=== PATIENT | male | born 1955 | race Caucasian/White ===

== ENCOUNTER 2016-08-26 13:33 | Inpatient (IN) | payer BC, OTHER ==
[~2016-08-26] VITALS: Ht 182.9 cm; Wt 132.4 kg
[~2016-08-26 13:33] MED LIST: HYDR-5688 PO
[2016-08-26 15:04] LABS: BASO % 0.1 %; BASO ABS # 0.02 K/uL (0-0.2); COMPLETE YES; EOS % 0.4 %; HEMATOCRIT 51.5 % (42-52); IG% 0.3 %; LYMPH % 13.3 %; LYMPH ABS # 1.92 K/uL (1.2-3.4); MEAN CELL VOLUME 90.7 fL (80-100); MEAN CORPUSCULAR HEMOGLOBIN 31.5 pg (25-34); MEAN CORPUSCULAR HGB CONC 34.8 g/dl (32-36); MONO % 4.6 %; NEUT % 81.3 %; PLATELET COUNT 267 K/uL (130-400); RED BLOOD COUNT 5.68 M/uL (4.7-6.1); WHITE BLOOD COUNT 14.45 K/uL (4.8-10.8)
[2016-08-26] MEDS ORDERED: HYDR-5688 PO (15:07)
[2016-08-26] MEDS ORDERED: MELO15TA4 PO (15:07)
[2016-08-26] MEDS ORDERED: HYDR25TA5 PO (15:07)
[2016-08-26] MEDS ORDERED: BISA-16 PO (15:08)
[2016-08-26] MEDS ORDERED: SODIUM CHLORIDE 0.9% 1000ML 2,000 ML IV ONE (15:15)
[2016-08-26 15:22] LABS: BUN/CREATININE RATIO 19.6 (10-20); CALCIUM 9.7 mg/dl (8.5-10.1); CREATININE 1.3 mg/dl (0.60-1.40)
[2016-08-26] MEDS: ONDANSETRON INJ 2 MG/ML 2 ML VIAL IV PRN ×2 (15:23→20:02)
[2016-08-26] MEDS: MoRPHine SULFATE 10 MG/ML CARP/VIAL IV PRN ×2 (15:23→17:33)
[2016-08-26] MEDS ORDERED: OPTIRAY 320 IV PRN (15:30)
--- NOTE | 2016-08-26 15:36 | EMERGENCY ROOM VISIT NOTE ---
History Report prepared by Nova: Davonte Pérez Under the Supervision of: Dr. Ruben Lyles M.D. First contact with patient: 15:11 Chief Complaint: ABDOMINAL PAIN Stated Complaint: ABD. PAIN Nursing Triage Summary: pt c/o left sided abd pain since getting lux[place]ish food 2 days ago has been taking previous pain meds and ran out History of Present Illness The patient is a 60 year old male who presents to the Emergency Room with complaints of constant severe left sided abdominal pain for the past two days. The patient states that he usually eats healthy, and he ate shrimp and broccoli the other night. He states he then went to bed, and when he woke up it hurt. He additionally states that he hasn't had a bowel movement in 2 days, and he has urinated very little. Additionally, the patient states that he was vomiting. He states that he is taking hydrocodone for his knee, and that only helps the abdominal pain for a couple hours. He states that he has no history of diverticulitis or diverticulosis, and he has never had pain like this before. Additionally he states that he fell two weeks ago, and afterwards he had hematochezia for a few days which has resolved. Source of History: patient Onset: two days ago Position: abdomen (left) Symptom Intensity: severe Timing: constant Associated Symptoms: + vomiting Review of Systems All systems have been listed, reviewed, and are negative other than those previously mentioned. Please see Additional Medical History Sheet. Past Medical & Surgical Medical Problems: (1) Chronic Hepatitis C W/O Hepatic Coma (2) Int Hemorrhoid W/O Compl Surgical Problems: (1) History of arthroscopic knee surgery Family History FH: diabetes mellitus FH: hypertension Social History Smoking Status: Never Smoker Alcohol Use: none Marital Status: Occupation Status: employed Current/Historical Medications Scheduled Bisacodyl (Dulcolax), 2 TAB PO UD Hydrochlorothiazide (Hydrochlorothiazide), 1 TAB PO DAILY Meloxicam (Meloxicam), 1 TAB PO DAILY Scheduled PRN Hydrocodone/Acetaminophen 5MG/325MG ([place] 5MG/325MG), 1 TABLET PO Q6H PRN for Pain Allergies Coded Allergies: No Known Allergies (Unverified , 08/26/16) Physical Exam Vital Signs Date Time Temp Pulse Resp B/P (MAP) Pulse Ox O2 Delivery O2 Flow Rate FiO2 08/26/16 16:43 79 18 125/83 94 Room Air 08/26/16 15:01 88 20 128/88 94 Room Air 08/26/16 13:41 36.6 95 22 155/99 93 Room Air Physical Exam GENERAL: Patient awake, alert, oriented x 3. Patient follows commands. Patient does not appear toxic. Patient is adequately hydrated and well- nourished. SKIN: No erythema, pallor, cyanosis or rash HEENT: Normal head, pupils equal, reactive to light and accommodation. LUNGS: Clear to auscultation. No wheezes, no rales, no rhonchi. HEART: No murmurs. No gallops. No rubs ABDOMEN: Left upper quadrant tenderness. No masses, no rebound, no hepatomegaly or splenomegaly. EXTREMITIES: No signs of trauma or infection NEUROLOGIC: Cranial nerves II-XII within normal limits. No gross motor sensory function deficits. Medical Decision & Procedures ER Provider Diagnostic Interpretation: Radiology results as stated below per my review and radiologist interpretation: ABD/PELVIS IV AND ORAL CONT CT DOSE: 2108.90 mGy.cm HISTORY: Pain LLQ pain TECHNIQUE: Multiaxial CT images of the abdomen and pelvis were performed following the use of intravenous and oral contrast. COMPARISON STUDY: None. FINDINGS: Mild bibasilar dependent atelectasis. Liver spleen and pancreas are unremarkable. Prior cholecystectomy. The kidneys enhance uniformly. Bowel pattern shows several fluid-filled slightly distended loops of small bowel. This suggests partial small bowel obstruction distally. Obstructing mass or lesion is not appreciated. Colon shows no evidence for distention. There is no evidence for pneumatosis or free air. Bladder is midline. Osseous structures show moderate degenerative change. IMPRESSION: 1. Partial distal small bowel obstruction 2. Etiology of the obstructive changes is not identified. 3. No evidence for colonic distention 4. Prior cholecystectomy. The above report was generated using voice recognition software. It may contain grammatical, syntax or spelling errors. Electronically signed by: Juwan Greenfield M.D. 08/26/2016 5:59 PM Dictated Date/Time: 08/26/2016 5:52 PM Laboratory Results 08/26/16 14:40 Red Blood Count 5.68, Mean Corpuscular Volume 90.7, Mean Corpuscular Hemoglobin 31.5, Mean Corpuscular Hemoglobin Concent 34.8, Mean Platelet Volume 10.0, Neutrophils (%) (Auto) 81.3, Lymphocytes (%) (Auto) 13.3, Monocytes (%) (Auto) 4.6, Eosinophils (%) (Auto) 0.4, Basophils (%) (Auto) 0.1, Neutrophils # (Auto) 11.74, Lymphocytes # (Auto) 1.92, Monocytes # (Auto) 0.66, Eosinophils # (Auto) 0.06, Basophils # (Auto) 0.02 08/26/16 14:40 Test 08/26/16 14:40 White Blood Count 14.45 K/uL (4.8-10.8) Red Blood Count 5.68 M/uL (4.7-6.1) Hemoglobin 17.9 g/dL (14.0-18.0) Hematocrit 51.5 % (42-52) Mean Corpuscular Volume 90.7 fL (80-100) Mean Corpuscular Hemoglobin 31.5 pg (25-34) Mean Corpuscular Hemoglobin Concent 34.8 g/dl (32-36) Platelet Count 267 K/uL (130-400) Mean Platelet Volume 10.0 fL (7.4-10.4) Neutrophils (%) (Auto) 81.3 % Lymphocytes (%) (Auto) 13.3 % Monocytes (%) (Auto) 4.6 % Eosinophils (%) (Auto) 0.4 % Basophils (%) (Auto) 0.1 % Neutrophils # (Auto) 11.74 K/uL (1.4-6.5) Lymphocytes # (Auto) 1.92 K/uL (1.2-3.4) Monocytes # (Auto) 0.66 K/uL (0.11-0.59) Eosinophils # (Auto) 0.06 K/uL (0-0.5) Basophils # (Auto) 0.02 K/uL (0-0.2) RDW Standard Deviation 44.6 fL (36.4-46.3) RDW Coefficient of Variation 13.5 % (11.5-14.5) Immature Granulocyte % (Auto) 0.3 % Immature Granulocyte # (Auto) 0.05 K/uL (0.00-0.02) Anion Gap 9.0 mmol/L (3-11) Est Creatinine Clear Calc Drug Dose 82.9 ml/min Estimated GFR () 67.8 Estimated GFR (Non- 58.5 BUN/Creatinine Ratio 19.6 (10-20) Calcium Level 9.7 mg/dl (8.5-10.1) Total Bilirubin 1.5 mg/dl (0.2-1) Aspartate Amino Transf (AST/SGOT) 26 U/L (15-37) Alanine Aminotransferase (ALT/SGPT) 43 U/L (12-78) Alkaline Phosphatase 78 U/L (45-117) Total Protein 8.6 gm/dl (6.4-8.2) Albumin 4.3 gm/dl (3.4-5.0) Globulin 4.3 gm/dl (2.5-4.0) Albumin/Globulin Ratio 1.0 (0.9-2) Lipase 75 U/L (73-393) Laboratory results as stated above per my review. Medications Administered Medications (Trade) Dose Ordered Sig/Arnie Route Start Time Stop Time Status Last Admin Dose Admin Sodium Chloride 2,000 ml @ 1,000 mls/hr Q2H ONCE IV 08/26/16 15:15 08/26/16 17:14 DC 08/26/16 15:23 1,000 MLS/HR Morphine Sulfate (MoRPHine SULFATE INJ) 6 mg Q1H PRN IV 08/26/16 15:15 09/09/16 15:14 08/26/16 17:33 6 MG Ondansetron HCl (Zofran Inj) 4 mg Q1HWA PRN IV 08/26/16 15:15 09/25/16 15:14 08/26/16 15:23 4 MG ED Course 1511: Past medical records reviewed. The patient was evaluated in room B10. A complete history and physical examination was performed. 1515: Zofran Inj 4mg IV, Morphine Sulfate Inj 6mg IV, Sodium Chloride 2000 ml @ 1000 mls/hr IV 180: I reevaluated the patient, and he is agreeable to the treatment plan 181: I discussed the patient's case with Dr. Costello. He is going to evaluate the patient for further treatment. Medical Decision Nurses notes reviewed. Medical history sheet reviewed. Differential diagnosis includes but is not limited to: bowel obstruction, diverticulitis, gastroenteritis, Crohn's, and ulcerative colitis. Blood pressure Screening: Patient was found to have normal blood pressure on screening and does not require follow up. Medication Reconciliation: I attest that I have personally reviewed the patient' s current medication list. The patient is here with abdominal pain and no bowel movement for the past 2 days. The patient's exam reveals some distention and vague generalized tenderness. White count is elevated. CT reveals a partial small bowel obstruction. The patient has required IV pain medication. In light of the above I believe the patient will require further evaluation in the hospital. I discussed care with the hospitalist. Consults Time Called: 1803 Consulting Physician: Dr. Costello Returned Call: 1811 I discussed the patient's case with Dr. Costello. He is going to evaluate the patient for further treatment. Impression Primary Impression: Small bowel obstruction Scribe Attestation The scribe's documentation has been prepared under my direction and personally reviewed by me in its entirety. I confirm that the note above accurately reflects all work, treatment, procedures, and medical decision making performed by me. Departure Information Dispostion Being Evaluated By Hospitalist Referrals [facility] (PCP) Patient Instructions My [facility]
--- NOTE | 2016-08-26 18:01 | DIAGNOSTIC IMAGING REPORT ---
ABD/PELVIS IV AND ORAL CONT CT DOSE: 2108.90 mGy.cm HISTORY: Pain LLQ pain TECHNIQUE: Multiaxial CT images of the abdomen and pelvis were performed following the use of intravenous and oral contrast. COMPARISON STUDY: None. FINDINGS: Mild bibasilar dependent atelectasis. Liver spleen and pancreas are unremarkable. Prior cholecystectomy. The kidneys enhance uniformly. Bowel pattern shows several fluid-filled slightly distended loops of small bowel. This suggests partial small bowel obstruction distally. Obstructing mass or lesion is not appreciated. Colon shows no evidence for distention. There is no evidence for pneumatosis or free air. Bladder is midline. Osseous structures show moderate degenerative change. IMPRESSION: 1. Partial distal small bowel obstruction 2. Etiology of the obstructive changes is not identified. 3. No evidence for colonic distention 4. Prior cholecystectomy. The above report was generated using voice recognition software. It may contain grammatical, syntax or spelling errors. Electronically signed by: Juwan Greenfield M.D. 08/26/2016 5:59 PM Dictated Date/Time: 08/26/2016 5:52 PM
[2016-08-26] MEDS ORDERED: SODIUM CHLORIDE 0.9% 1000ML 1,000 ML IV STA (18:08)
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
[2016-08-26] MEDS ORDERED: ACETAMINOPHEN 325 MG TAB PO PRN (18:30)
[2016-08-26 19:43] VITALS: BP 133/70; PULSE 71; TEMP 36.6; O2SAT 93; Ht 182.9 cm; Wt 132.4 kg
[2016-08-26 20:15] VITALS: BP 149/98; PULSE 74; TEMP 36.5; O2SAT 92
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
[2016-08-26] MEDS: NSS + 20MEQ KCL 1000ML 1,000 ML IV SCH (21:52)
[2016-08-26] MEDS: MoRPHine SULFATE 2 MG/ML CARP IV PRN (21:53)
[2016-08-26] MEDS: CIPROFLOXACIN / D5W 400 MG in PREMIXED IN D5W 200 ML IV SCH (22:30)
[2016-08-26 22:50] VITALS: BP 159/101; PULSE 70; TEMP 36.3; O2SAT 93
[2016-08-26] MEDS: METRONIDAZOLE / NSS 500 MG in PREMIXED NSS 100 ML IV SCH (23:23)
[2016-08-27] MEDS: MoRPHine SULFATE 2 MG/ML CARP IV PRN ×4 (02:33→17:16)
[2016-08-27] MEDS: ONDANSETRON INJ 2 MG/ML 2 ML VIAL IV PRN (05:34)
[2016-08-27 07:11] VITALS: BP 146/85; PULSE 77; TEMP 37; O2SAT 92
[2016-08-27] MEDS: METRONIDAZOLE / NSS 500 MG in PREMIXED NSS 100 ML IV SCH ×2 (07:28→16:42)
[2016-08-27] MEDS: NSS + 20MEQ KCL 1000ML 1,000 ML IV SCH ×2 (07:28→16:42)
[2016-08-27 07:30] VITALS: O2SAT 92
[2016-08-27 07:30] LABS: BASO % 0.1 %; BASO ABS # 0.01 K/uL (0-0.2); COMPLETE YES; EOS % 0.7 %; HEMATOCRIT 48.2 % (42-52); IG% 0.3 %; LYMPH % 6.7 %; LYMPH ABS # 0.72 K/uL (1.2-3.4); MEAN CORPUSCULAR HEMOGLOBIN 31.5 pg (25-34); MEAN CORPUSCULAR HGB CONC 34.2 g/dl (32-36); MONO % 6.6 %; NEUT % 85.6 %; PLATELET COUNT 218 K/uL (130-400); RED BLOOD COUNT 5.24 M/uL (4.7-6.1); WHITE BLOOD COUNT 10.76 K/uL (4.8-10.8)
[2016-08-27 07:51] LABS: URINE APPEARANCE CLEAR (CLEAR); URINE BILIRUBIN NEG (NEG); URINE COLOR DK YELLOW; URINE NITRITE NEG (NEG); URINE SPECIFIC GRAVITY > 1.045 (1.000-1.030); UROBILINOGEN NEG (NEG); ZZUR CULT IF INDIC CLEAN CATCH NO
[2016-08-27 07:52] LABS: MANUAL MICROSCOPIC REQUIRED? NO; REVIEW REQ? NO
--- NOTE | 2016-08-27 08:05 | Surgery Progress Note ---
Surgery Progress Note Date of Service Aug 27, 2016. Subjective pt is slightly better, but not pass BM and gas yet, pt had NG tube-1145ml, Objective Vital Signs: Date Time Temp Pulse Resp B/P (MAP) Pulse Ox O2 Delivery O2 Flow Rate FiO2 08/27/16 07:11 37.0 77 18 146/85 (105) 92 Room Air 08/26/16 23:30 Room Air 08/26/16 22:50 36.3 70 18 159/101 (120) 93 Room Air 08/26/16 20:15 Room Air 08/26/16 20:15 36.5 74 20 149/98 (115) 92 Room Air 08/26/16 19:43 36.6 71 18 133/70 93 Room Air 08/26/16 19:38 71 18 133/70 93 Room Air 08/26/16 18:20 75 20 132/83 94 Room Air 08/26/16 16:43 79 18 125/83 94 Room Air 08/26/16 15:23 75 20 132/83 94 Room Air 08/26/16 15:01 88 20 128/88 94 Room Air 08/26/16 13:41 36.6 95 22 155/99 93 Room Air General Appearance: WD/WN, no apparent distress Head: normocephalic Neck: supple, no JVD Respiratory/Chest: chest non-tender, lungs clear Cardiovascular: regular rate, rhythm, no edema, no JVD Abdomen: non distended, soft, no organomegaly, + tenderness (tenderness on left abdomen, no rebound pain, BS +) Extremities: normal range of motion, non-tender, normal inspection Laboratory Results: Results Past 24 Hours Test 08/26/16 14:40 08/27/16 05:30 08/27/16 07:12 08/27/16 07:17 Range/Units White Blood Count 14.45 10.76 4.8-10.8 K/uL Red Blood Count 5.68 5.24 4.7-6.1 M/uL Hemoglobin 17.9 16.5 14.0-18.0 g/dL Hematocrit 51.5 48.2 42-52 % Mean Corpuscular Volume 90.7 92.0 80-100 fL Mean Corpuscular Hemoglobin 31.5 31.5 25-34 pg Mean Corpuscular Hemoglobin Concent 34.8 34.2 32-36 g/dl Platelet Count 267 218 130-400 K/uL Mean Platelet Volume 10.0 10.0 7.4-10.4 fL Neutrophils (%) (Auto) 81.3 85.6 % Lymphocytes (%) (Auto) 13.3 6.7 % Monocytes (%) (Auto) 4.6 6.6 % Eosinophils (%) (Auto) 0.4 0.7 % Basophils (%) (Auto) 0.1 0.1 % Neutrophils # (Auto) 11.74 9.21 1.4-6.5 K/uL Lymphocytes # (Auto) 1.92 0.72 1.2-3.4 K/uL Monocytes # (Auto) 0.66 0.71 0.11-0.59 K/uL Eosinophils # (Auto) 0.06 0.08 0-0.5 K/uL Basophils # (Auto) 0.02 0.01 0-0.2 K/uL RDW Standard Deviation 44.6 46.0 36.4-46.3 fL RDW Coefficient of Variation 13.5 13.6 11.5-14.5 % Immature Granulocyte % (Auto) 0.3 0.3 % Immature Granulocyte # (Auto) 0.05 0.03 0.00-0.02 K/uL Sodium Level 140 136-145 mmol/L Potassium Level 4.0 3.5-5.1 mmol/L Chloride Level 104 98-107 mmol/L Carbon Dioxide Level 27 21-32 mmol/L Anion Gap 9.0 3-11 mmol/L Blood Urea Nitrogen 26 7-18 mg/dl Creatinine 1.30 0.60-1.40 mg/dl Est Creatinine Clear Calc Drug Dose 82.9 ml/min Estimated GFR () 67.8 Estimated GFR (Non- 58.5 BUN/Creatinine Ratio 19.6 10-20 Random Glucose 138 70-99 mg/dl Calcium Level 9.7 8.5-10.1 mg/dl Total Bilirubin 1.5 0.2-1 mg/dl Aspartate Amino Transf (AST/SGOT) 26 15-37 U/L Alanine Aminotransferase (ALT/SGPT) 43 12-78 U/L Alkaline Phosphatase 78 45-117 U/L Total Protein 8.6 6.4-8.2 gm/dl Albumin 4.3 3.4-5.0 gm/dl Globulin 4.3 2.5-4.0 gm/dl Albumin/Globulin Ratio 1.0 0.9-2 Lipase 75 73-393 U/L Urine Color DK YELLOW Urine Appearance CLEAR CLEAR Urine pH 5.0 4.5-7.5 Urine Specific [place] > 1.045 1.000-1.030 Urine Protein TRACE NEG Urine Glucose (UA) NEG NEG Urine Ketones NEG NEG Urine Occult Blood NEG NEG Urine Nitrite NEG NEG Urine Bilirubin NEG NEG Urine Urobilinogen NEG NEG Urine Leukocyte Esterase NEG NEG Urine WBC (Auto) 1-5 0-5 /hpf Urine RBC (Auto) 0-4 0-4 /hpf Urine Hyaline Casts (Auto) 1-5 0-5 /lpf Urine Epithelial Cells (Auto) 5-10 0-5 /lpf Urine Bacteria (Auto) NEG NEG Assessment & Plan F/U SBO pt is doing slightly better, but not pass BM or gas yet Small Bowel series study to R/O tumor will F/U,
[2016-08-27 08:10] LABS: CALCIUM 8.5 mg/dl (8.5-10.1); CREATININE 1.1 mg/dl (0.60-1.40); POTASSIUM 4.1 mmol/L (3.5-5.1)
[2016-08-27] MEDS: CIPROFLOXACIN / D5W 400 MG in PREMIXED IN D5W 200 ML IV SCH ×3 (09:59→20:15)
--- NOTE | 2016-08-27 13:45 | Progress Note ---
Internal Med Progress Note Date of Service: Aug 27, 2016. Provider Documentation: SUBJECTIVE: Seen and examined at bedside. States still has some left sided abdominal discomfort. Nausea and pain under control No BM yet Family at bedside. Denies chest pain, SOB, fever, chills OBJECTIVE: Vital Signs-as noted below General Appearance: WD/WN, no apparent distress Head: normocephalic, atraumatic Eyes: normal inspection, PERRL, EOMI, sclerae normal ENT: normal ENT inspection, hearing grossly normal Neck: supple, trachea midline Respiratory/Chest: chest non-tender, lungs clear, normal breath sounds, no respiratory distress, no accessory muscle use Cardiovascular: regular rate, rhythm, no murmur, + pertinent finding (Trace edema) Abdomen/GI: soft, + distended, + pertinent finding (Decreased bowel sounds, Tender in LUQ and LLQ) Back: normal inspection Extremities/Musculoskelatal: normal inspection, + pertinent finding (Trace edema) 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 ASSESSMENT & PLAN: Partial SBO: H/O Cholecystectomy CT abd: suggestive of partial SBO NPO for now continue IV fluids Minimize pain meds: diminished Bowel sounds on exam Appreciate Surgery input Continue NG tube Zofran for PRN nausea small bowel series study per surgery Leukocytosis: Likely reactive Resolved Continue Cipro and flagyl empirically per surgery recommendations Monitor HTN: Stable Hold HCTZ for now Monitor Chronic Hepatitis C H/O Hemorrhoids and hematochezia 2 weeks ago Follows with GI No acute issues Follow up as outpatient H/O Osteoarthritis: Patient plans to defer surgery even if needed Stable DVT Px: SCDs Code Status: Full Code Disposition: Monitor for now Vital Signs: Date Time Temp Pulse Resp B/P (MAP) Pulse Ox O2 Delivery O2 Flow Rate FiO2 08/27/16 07:30 92 Room Air 08/27/16 07:11 37.0 77 18 146/85 (105) 92 Room Air 08/26/16 23:30 Room Air 08/26/16 22:50 36.3 70 18 159/101 (120) 93 Room Air 08/26/16 20:15 Room Air 08/26/16 20:15 36.5 74 20 149/98 (115) 92 Room Air 08/26/16 19:43 36.6 71 18 133/70 93 Room Air 08/26/16 19:38 71 18 133/70 93 Room Air 08/26/16 18:20 75 20 132/83 94 Room Air 08/26/16 16:43 79 18 125/83 94 Room Air 08/26/16 15:23 75 20 132/83 94 Room Air 08/26/16 15:01 88 20 128/88 94 Room Air 08/26/16 13:41 36.6 95 22 155/99 93 Room Air Lab Results: Results Past 24 Hours Test 08/26/16 14:40 08/27/16 05:30 08/27/16 07:12 08/27/16 07:17 Range/Units White Blood Count 14.45 10.76 4.8-10.8 K/uL Red Blood Count 5.68 5.24 4.7-6.1 M/uL Hemoglobin 17.9 16.5 14.0-18.0 g/dL Hematocrit 51.5 48.2 42-52 % Mean Corpuscular Volume 90.7 92.0 80-100 fL Mean Corpuscular Hemoglobin 31.5 31.5 25-34 pg Mean Corpuscular Hemoglobin Concent 34.8 34.2 32-36 g/dl Platelet Count 267 218 130-400 K/uL Mean Platelet Volume 10.0 10.0 7.4-10.4 fL Neutrophils (%) (Auto) 81.3 85.6 % Lymphocytes (%) (Auto) 13.3 6.7 % Monocytes (%) (Auto) 4.6 6.6 % Eosinophils (%) (Auto) 0.4 0.7 % Basophils (%) (Auto) 0.1 0.1 % Neutrophils # (Auto) 11.74 9.21 1.4-6.5 K/uL Lymphocytes # (Auto) 1.92 0.72 1.2-3.4 K/uL Monocytes # (Auto) 0.66 0.71 0.11-0.59 K/uL Eosinophils # (Auto) 0.06 0.08 0-0.5 K/uL Basophils # (Auto) 0.02 0.01 0-0.2 K/uL RDW Standard Deviation 44.6 46.0 36.4-46.3 fL RDW Coefficient of Variation 13.5 13.6 11.5-14.5 % Immature Granulocyte % (Auto) 0.3 0.3 % Immature Granulocyte # (Auto) 0.05 0.03 0.00-0.02 K/uL Sodium Level 140 140 136-145 mmol/L Potassium Level 4.0 4.1 3.5-5.1 mmol/L Chloride Level 104 107 98-107 mmol/L Carbon Dioxide Level 27 28 21-32 mmol/L Anion Gap 9.0 5.0 3-11 mmol/L Blood Urea Nitrogen 26 23 7-18 mg/dl Creatinine 1.30 1.10 0.60-1.40 mg/dl Est Creatinine Clear Calc Drug Dose 82.9 98.0 ml/min Estimated GFR () 67.8 82.9 Estimated GFR (Non- 58.5 71.6 BUN/Creatinine Ratio 19.6 21.0 10-20 Random Glucose 138 120 70-99 mg/dl Calcium Level 9.7 8.5 8.5-10.1 mg/dl Total Bilirubin 1.5 0.2-1 mg/dl Aspartate Amino Transf (AST/SGOT) 26 15-37 U/L Alanine Aminotransferase (ALT/SGPT) 43 12-78 U/L Alkaline Phosphatase 78 45-117 U/L Total Protein 8.6 6.4-8.2 gm/dl Albumin 4.3 3.4-5.0 gm/dl Globulin 4.3 2.5-4.0 gm/dl Albumin/Globulin Ratio 1.0 0.9-2 Lipase 75 73-393 U/L Urine Color DK YELLOW Urine Appearance CLEAR CLEAR Urine pH 5.0 4.5-7.5 Urine Specific [place] > 1.045 1.000-1.030 Urine Protein TRACE NEG Urine Glucose (UA) NEG NEG Urine Ketones NEG NEG Urine Occult Blood NEG NEG Urine Nitrite NEG NEG Urine Bilirubin NEG NEG Urine Urobilinogen NEG NEG Urine Leukocyte Esterase NEG NEG Urine WBC (Auto) 1-5 0-5 /hpf Urine RBC (Auto) 0-4 0-4 /hpf Urine Hyaline Casts (Auto) 1-5 0-5 /lpf Urine Epithelial Cells (Auto) 5-10 0-5 /lpf Urine Bacteria (Auto) NEG NEG
[2016-08-27 15:47] VITALS: BP 126/80; PULSE 80; TEMP 36.6; O2SAT 93
[2016-08-27 23:22] VITALS: BP 133/89; PULSE 91; TEMP 36.3; O2SAT 90
[2016-08-28] MEDS: METRONIDAZOLE / NSS 500 MG in PREMIXED NSS 100 ML IV SCH ×3 (00:17→15:35)
[2016-08-28] MEDS: MoRPHine SULFATE 2 MG/ML CARP IV PRN ×2 (00:24→07:59)
[2016-08-28] MEDS: NSS + 20MEQ KCL 1000ML 1,000 ML IV SCH (02:57)
[2016-08-28 06:41] LABS: BASO % 0.2 %; BASO ABS # 0.02 K/uL (0-0.2); COMPLETE YES; EOS % 2.7 %; HEMATOCRIT 49.5 % (42-52); IG% 0.2 %; LYMPH % 26.5 %; LYMPH ABS # 2.72 K/uL (1.2-3.4); MEAN CELL VOLUME 93.8 fL (80-100); MEAN CORPUSCULAR HEMOGLOBIN 31.1 pg (25-34); MEAN CORPUSCULAR HGB CONC 33.1 g/dl (32-36); MEAN PLATELET VOLUME 10.1 fL (7.4-10.4); MONO % 5.5 %; NEUT % 64.9 %; PLATELET COUNT 242 K/uL (130-400); RED BLOOD COUNT 5.28 M/uL (4.7-6.1); WHITE BLOOD COUNT 10.28 K/uL (4.8-10.8)
[2016-08-28 07:18] LABS: BUN/CREATININE RATIO 18.4 (10-20); CALCIUM 8.4 mg/dl (8.5-10.1); CREATININE 1.5 mg/dl (0.60-1.40); POTASSIUM 3.6 mmol/L (3.5-5.1)
[2016-08-28 07:26] VITALS: BP 134/85; PULSE 77; TEMP 36.4; O2SAT 93
[2016-08-28 07:30] VITALS: O2SAT 93
[2016-08-28] MEDS: D5NSS + 20MEQ KCL 1,000 ML IV SCH ×2 (08:34→16:25)
--- NOTE | 2016-08-28 10:21 | Surgery Progress Note ---
Surgery Progress Note Date of Service Aug 28, 2016. Subjective + feeling well pt is doing better, passed some gas, no BM yet, pt has less abdominal pain, no nausea, no vomiting, some bloody color on NG tube, Objective Vital Signs: Date Time Temp Pulse Resp B/P (MAP) Pulse Ox O2 Delivery O2 Flow Rate FiO2 08/28/16 07:30 93 Room Air 08/28/16 07:26 36.4 77 18 134/85 (101) 93 Room Air 08/27/16 23:55 Room Air 08/27/16 23:22 36.3 91 16 133/89 (104) 90 08/27/16 16:40 Room Air 08/27/16 15:47 36.6 80 18 126/80 (95) 93 Room Air General Appearance: WD/WN Head: normocephalic Neck: supple, no JVD Respiratory/Chest: chest non-tender, lungs clear Cardiovascular: regular rate, rhythm, no edema, no gallop, no JVD Abdomen: normal bowel sounds, non tender, non distended, soft Extremities: normal range of motion, non-tender, normal inspection Laboratory Results: Results Past 24 Hours Test 08/28/16 06:12 Range/Units White Blood Count 10.28 4.8-10.8 K/uL Red Blood Count 5.28 4.7-6.1 M/uL Hemoglobin 16.4 14.0-18.0 g/dL Hematocrit 49.5 42-52 % Mean Corpuscular Volume 93.8 80-100 fL Mean Corpuscular Hemoglobin 31.1 25-34 pg Mean Corpuscular Hemoglobin Concent 33.1 32-36 g/dl Platelet Count 242 130-400 K/uL Mean Platelet Volume 10.1 7.4-10.4 fL Neutrophils (%) (Auto) 64.9 % Lymphocytes (%) (Auto) 26.5 % Monocytes (%) (Auto) 5.5 % Eosinophils (%) (Auto) 2.7 % Basophils (%) (Auto) 0.2 % Neutrophils # (Auto) 6.67 1.4-6.5 K/uL Lymphocytes # (Auto) 2.72 1.2-3.4 K/uL Monocytes # (Auto) 0.57 0.11-0.59 K/uL Eosinophils # (Auto) 0.28 0-0.5 K/uL Basophils # (Auto) 0.02 0-0.2 K/uL RDW Standard Deviation 46.8 36.4-46.3 fL RDW Coefficient of Variation 13.6 11.5-14.5 % Immature Granulocyte % (Auto) 0.2 % Immature Granulocyte # (Auto) 0.02 0.00-0.02 K/uL Sodium Level 142 136-145 mmol/L Potassium Level 3.6 3.5-5.1 mmol/L Chloride Level 104 98-107 mmol/L Carbon Dioxide Level 31 21-32 mmol/L Anion Gap 7.0 3-11 mmol/L Blood Urea Nitrogen 28 7-18 mg/dl Creatinine 1.50 0.60-1.40 mg/dl Est Creatinine Clear Calc Drug Dose 71.9 ml/min Estimated GFR () 57.0 Estimated GFR (Non- 49.2 BUN/Creatinine Ratio 18.4 10-20 Random Glucose 99 70-99 mg/dl Calcium Level 8.4 8.5-10.1 mg/dl Assessment & Plan F/U SBO pt is doing slightly better, but not pass BM or gas yet Small Bowel series study to R/O tumor will F/U, 08/28/2016 doing better, passed gas. continue treatment, will F/U, F/U SBO pt is doing slightly better, but not pass BM or gas yet Small Bowel series study to R/O tumor will F/U,
[2016-08-28] MEDS: CIPROFLOXACIN / D5W 400 MG in PREMIXED IN D5W 200 ML IV SCH (11:03)
--- NOTE | 2016-08-28 13:47 | Progress Note ---
Internal Med Progress Note Date of Service: Aug 28, 2016. Provider Documentation: SUBJECTIVE: Seen and examined at bedside. Minimal Abdominal discomfort. Passing gas No BM yet Denies chest pain, SOB, fever, chills OBJECTIVE: Vital Signs-as noted below General Appearance: WD/WN, no apparent distress Head: normocephalic, atraumatic Eyes: normal inspection, PERRL, EOMI, sclerae normal ENT: normal ENT inspection, hearing grossly normal Neck: supple, trachea midline Respiratory/Chest: chest non-tender, lungs clear, normal breath sounds, no respiratory distress, no accessory muscle use Cardiovascular: regular rate, rhythm, no murmur, + pertinent finding (Trace edema) Abdomen/GI: soft, + distended, + Decreased bowel sounds Back: normal inspection Extremities/Musculoskelatal: normal inspection, + pertinent finding (Trace edema) 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 ASSESSMENT & PLAN: Partial SBO: H/O Cholecystectomy CT abd: suggestive of partial SBO NPO for now continue IV fluids Minimize pain meds Continue NG tube Zofran for PRN nausea small bowel series study pending Surgery following Continue PPI LUCY: Likely prerenal Cr:1.5 today Continue IV fluids Monitor renal function Hold HCTZ Leukocytosis: Likely reactive Resolved Continue Cipro and flagyl empirically per surgery recommendations Monitor HTN: Stable Hold HCTZ for now Monitor Chronic Hepatitis C H/O Hemorrhoids and hematochezia 2 weeks ago Follows with GI No acute issues Follow up as outpatient H/O Osteoarthritis: Patient plans to defer surgery even if needed Stable DVT Px: SCDs Code Status: Full Code Disposition: Monitor for now Vital Signs: Date Time Temp Pulse Resp B/P (MAP) Pulse Ox O2 Delivery O2 Flow Rate FiO2 08/28/16 07:30 93 Room Air 08/28/16 07:26 36.4 77 18 134/85 (101) 93 Room Air 08/27/16 23:55 Room Air 08/27/16 23:22 36.3 91 16 133/89 (104) 90 08/27/16 16:40 Room Air 08/27/16 15:47 36.6 80 18 126/80 (95) 93 Room Air Lab Results: Results Past 24 Hours Test 08/28/16 06:12 Range/Units White Blood Count 10.28 4.8-10.8 K/uL Red Blood Count 5.28 4.7-6.1 M/uL Hemoglobin 16.4 14.0-18.0 g/dL Hematocrit 49.5 42-52 % Mean Corpuscular Volume 93.8 80-100 fL Mean Corpuscular Hemoglobin 31.1 25-34 pg Mean Corpuscular Hemoglobin Concent 33.1 32-36 g/dl Platelet Count 242 130-400 K/uL Mean Platelet Volume 10.1 7.4-10.4 fL Neutrophils (%) (Auto) 64.9 % Lymphocytes (%) (Auto) 26.5 % Monocytes (%) (Auto) 5.5 % Eosinophils (%) (Auto) 2.7 % Basophils (%) (Auto) 0.2 % Neutrophils # (Auto) 6.67 1.4-6.5 K/uL Lymphocytes # (Auto) 2.72 1.2-3.4 K/uL Monocytes # (Auto) 0.57 0.11-0.59 K/uL Eosinophils # (Auto) 0.28 0-0.5 K/uL Basophils # (Auto) 0.02 0-0.2 K/uL RDW Standard Deviation 46.8 36.4-46.3 fL RDW Coefficient of Variation 13.6 11.5-14.5 % Immature Granulocyte % (Auto) 0.2 % Immature Granulocyte # (Auto) 0.02 0.00-0.02 K/uL Sodium Level 142 136-145 mmol/L Potassium Level 3.6 3.5-5.1 mmol/L Chloride Level 104 98-107 mmol/L Carbon Dioxide Level 31 21-32 mmol/L Anion Gap 7.0 3-11 mmol/L Blood Urea Nitrogen 28 7-18 mg/dl Creatinine 1.50 0.60-1.40 mg/dl Est Creatinine Clear Calc Drug Dose 71.9 ml/min Estimated GFR () 57.0 Estimated GFR (Non- 49.2 BUN/Creatinine Ratio 18.4 10-20 Random Glucose 99 70-99 mg/dl Calcium Level 8.4 8.5-10.1 mg/dl
[2016-08-28 15:16] VITALS: BP 129/83; PULSE 79; TEMP 36.3; O2SAT 90
[2016-08-28] MEDS ORDERED: MoRPHine SULFATE 2 MG/ML CARP IV PRN (17:00)
[2016-08-28] MEDS ORDERED: NURSING DECISION MEDICATION ORDER SCH (17:00)
[2016-08-28] MEDS ORDERED: COUGH DROP (SUGAR FREE) LOZ 24 LOZ/1 BOX PO PRN (17:15)
[2016-08-28] MEDS: PANTOprazole INJ 40 MG in SYRINGE 0 ML IV SCH (20:33)
[2016-08-28 23:07] VITALS: BP 133/80; PULSE 73; TEMP 36.8; O2SAT 93
[2016-08-29] MEDS: METRONIDAZOLE / NSS 500 MG in PREMIXED NSS 100 ML IV SCH (00:23)
[2016-08-29] MEDS: D5NSS + 20MEQ KCL 1,000 ML IV SCH ×4 (00:24→23:49)
[2016-08-29 06:22] LABS: BUN/CREATININE RATIO 23.1 (10-20); CALCIUM 7.9 mg/dl (8.5-10.1); CREATININE 1.1 mg/dl (0.60-1.40)
[2016-08-29 07:46] VITALS: BP 136/83; PULSE 71; TEMP 36.8; O2SAT 93
[2016-08-29] MEDS: PANTOprazole INJ 40 MG in SYRINGE 0 ML IV SCH ×2 (11:59→21:02)
[2016-08-29] MEDS: ONDANSETRON INJ 2 MG/ML 2 ML VIAL IV PRN (12:01)
--- NOTE | 2016-08-29 14:01 | Progress Note ---
Internal Med Progress Note Date of Service: Aug 29, 2016. Provider Documentation: SUBJECTIVE: Seen and examined at bedside. Reports nausea. Abdominal pain is under control Passing gas, No BM yet Denies chest pain, SOB, fever, chills Had upper GI series today. OBJECTIVE: Vital Signs-as noted below General Appearance: WD/WN, no apparent distress Head: normocephalic, atraumatic Eyes: normal inspection, PERRL, EOMI, sclerae normal ENT: normal ENT inspection, hearing grossly normal Neck: supple, trachea midline Respiratory/Chest: chest non-tender, lungs clear, normal breath sounds, no respiratory distress, no accessory muscle use Cardiovascular: regular rate, rhythm, no murmur, + pertinent finding (Trace edema) Abdomen/GI: soft, + distended, + Decreased bowel sounds Back: normal inspection Extremities/Musculoskelatal: normal inspection, + pertinent finding (Trace edema) 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 ASSESSMENT & PLAN: Partial SBO: H/O Cholecystectomy Upper GI series: Possible Inflammatory bowel disease CT abd: suggestive of partial SBO NPO for now continue IV fluids Minimize pain meds Continue NG tube Zofran for PRN nausea small bowel series: as below Surgery following Continue PPI Will consult GI for possible endoscopy LUCY: Likely prerenal Resolved Cr:1.5 >>>1.1 Continue IV fluids Monitor renal function Hold HCTZ Leukocytosis: Likely reactive Resolved HTN: Stable Hold HCTZ for now Monitor Chronic Hepatitis C H/O Hemorrhoids and hematochezia 2 weeks ago Follows with GI No acute issues Follow up as outpatient H/O Osteoarthritis: Patient plans to defer surgery even if needed Stable DVT Px: SCDs Code Status: Full Code Disposition: Monitor for now PROCEDURES: Upper GI series: 1. Partial distal small bowel obstructive change. 2. Luminal narrowing and irregularity of the final 10 to 15 cm of the small bowel, combined with what is possibly a small fistulous tract extending from the distal ileum to the region of the cecum. 3. An inflammatory bowel process is felt to be most likely, with the possibility of Crohn's disease considered. 4. Endoscopic evaluation is suggested when able to confirm or exclude this possibility. Vital Signs: Date Time Temp Pulse Resp B/P (MAP) Pulse Ox O2 Delivery O2 Flow Rate FiO2 08/29/16 15:36 36.5 72 18 153/97 (115) 95 Room Air 08/29/16 07:53 Room Air 08/29/16 07:46 36.8 71 16 136/83 (100) 93 Room Air 08/29/16 03:32 Room Air 08/29/16 00:25 Room Air 08/28/16 23:07 36.8 73 16 133/80 (97) 93 Room Air Lab Results: Results Past 24 Hours Test 08/29/16 05:27 Range/Units Sodium Level 146 136-145 mmol/L Potassium Level 4.0 3.5-5.1 mmol/L Chloride Level 112 98-107 mmol/L Carbon Dioxide Level 31 21-32 mmol/L Anion Gap 3.0 3-11 mmol/L Blood Urea Nitrogen 25 7-18 mg/dl Creatinine 1.10 0.60-1.40 mg/dl Est Creatinine Clear Calc Drug Dose 98.0 ml/min Estimated GFR () 82.9 Estimated GFR (Non- 71.6 BUN/Creatinine Ratio 23.1 10-20 Random Glucose 114 70-99 mg/dl Calcium Level 7.9 8.5-10.1 mg/dl
[2016-08-29 15:36] VITALS: BP 153/97; PULSE 72; TEMP 36.5; O2SAT 95
--- NOTE | 2016-08-29 16:01 | DIAGNOSTIC IMAGING REPORT ---
GI W/AIR SMALL BOWEL ROUTINE CLINICAL HISTORY: /Pain. Nausea. COMPARISON STUDY: CT examination of 08/26/2016 FLUOROSCOPY TIME: 2.5 minutes. FINDINGS: Patient patient initiated swallowing function well. The esophagus is normal in course and caliber. Appearances of the stomach is within normal limits. The duodenal bulb fills well. The duodenal sweep opacifies appropriately. There is evidence for a distal partial small bowel obstructive change. The proximal to mid small bowel shows normal mucosal pattern although there is a moderate degree of small bowel distention. The distal small bowel including terminal ileum shows irregularity and edematous change of the wall. There is suggestion of a potential short segment fistulous tract extending from the cecum to a distal ileal loops best seen on the 5 hour 40 minute film. . The appearance is suggestive of an inflammatory bowel process such chest Crohn's disease. Endoscopic evaluation is suggested as follow-up. IMPRESSION: 1. Partial distal small bowel obstructive change. 2. Luminal narrowing and irregularity of the final 10 to 15 cm of the small bowel, combined with what is possibly a small fistulous tract extending from the distal ileum to the region of the cecum. 3. An inflammatory bowel process is felt to be most likely, with the possibility of Crohn's disease considered. 4. Endoscopic evaluation is suggested when able to confirm or exclude this possibility. The above report was generated using voice recognition software. It may contain grammatical, syntax or spelling errors. Electronically signed by: Juwan Greenfield M.D. 08/29/2016 4:00 PM Dictated Date/Time: 08/29/2016 3:52 PM
--- NOTE | 2016-08-29 16:26 | Surgery Progress Note ---
Surgery Progress Note Date of Service Aug 29, 2016. Subjective + feeling well pt is doing better, passed more gas, no BM yet, pt had small bowel study today, IMPRESSION: 1. Partial distal small bowel obstructive change. 2. Luminal narrowing and irregularity of the final 10 to 15 cm of the small bowel, combined with what is possibly a small fistulous tract extending from the distal ileum to the region of the cecum. 3. An inflammatory bowel process is felt to be most likely, with the possibility of Crohn's disease considered. 4. Endoscopic evaluation is suggested when able to confirm or exclude this possibility. Objective Vital Signs: Date Time Temp Pulse Resp B/P (MAP) Pulse Ox O2 Delivery O2 Flow Rate FiO2 08/29/16 15:36 36.5 72 18 153/97 (115) 95 Room Air 08/29/16 07:53 Room Air 08/29/16 07:46 36.8 71 16 136/83 (100) 93 Room Air 08/29/16 03:32 Room Air 08/29/16 00:25 Room Air 08/28/16 23:07 36.8 73 16 133/80 (97) 93 Room Air General Appearance: WD/WN Head: normocephalic Neck: supple, no JVD Respiratory/Chest: chest non-tender, lungs clear Cardiovascular: regular rate, rhythm, no edema, no gallop, no JVD Abdomen: normal bowel sounds, non tender, non distended, soft Extremities: normal range of motion, non-tender, normal inspection Laboratory Results: Results Past 24 Hours Test 08/29/16 05:27 Range/Units Sodium Level 146 136-145 mmol/L Potassium Level 4.0 3.5-5.1 mmol/L Chloride Level 112 98-107 mmol/L Carbon Dioxide Level 31 21-32 mmol/L Anion Gap 3.0 3-11 mmol/L Blood Urea Nitrogen 25 7-18 mg/dl Creatinine 1.10 0.60-1.40 mg/dl Est Creatinine Clear Calc Drug Dose 98.0 ml/min Estimated GFR () 82.9 Estimated GFR (Non- 71.6 BUN/Creatinine Ratio 23.1 10-20 Random Glucose 114 70-99 mg/dl Calcium Level 7.9 8.5-10.1 mg/dl Assessment & Plan F/U SBO pt is doing slightly better, but not pass BM or gas yet Small Bowel series study to R/O tumor will F/U, 08/28/2016 doing better, passed gas. continue treatment, will F/U, 08/29/2016 pt is doing better, Small bowel study- possible Crohn'c disease. consult GI for endoscopy D/C NGT clear diet I update information to pt, pt understood, I answered all questions, dulcolax 10 mg po once a day, x 1 day will F/U. clear liquids F/U SBO pt is doing slightly better, but not pass BM or gas yet Small Bowel series study to R/O tumor will F/U, 08/28/2016 doing better, passed gas. continue treatment, will F/U,
[2016-08-29] MEDS ORDERED: BISACODYL 5 MG TABEC PO ONE (16:30)
[2016-08-29 22:53] VITALS: BP 149/90; PULSE 66; TEMP 36.7; O2SAT 94
[2016-08-30 07:12] VITALS: BP 146/85; PULSE 64; TEMP 36.6; O2SAT 94
[2016-08-30] MEDS: D5NSS + 20MEQ KCL 1,000 ML IV SCH ×2 (07:33→18:37)
[2016-08-30 08:33] LABS: BLOOD UREA NITROGEN 14 mg/dl (7-18); BUN/CREATININE RATIO 12.6 (10-20); CALCIUM 8.3 mg/dl (8.5-10.1); CARBON DIOXIDE 27 mmol/L (21-32); CHLORIDE 108 mmol/L (98-107); GLUCOSE 96 mg/dl (70-99); SODIUM 139 mmol/L (136-145)
[2016-08-30] MEDS: PANTOprazole INJ 40 MG in SYRINGE 0 ML IV SCH ×2 (08:46→21:02)
--- NOTE | 2016-08-30 11:34 | Surgery Progress Note ---
Surgery Progress Note Date of Service Aug 30, 2016. Subjective + feeling well passed 2 times BM, pt has no abdominal pain, no nausea, no vomiting, pt tolerated clear diet, Objective Vital Signs: Date Time Temp Pulse Resp B/P (MAP) Pulse Ox O2 Delivery O2 Flow Rate FiO2 08/30/16 08:30 Room Air 08/30/16 07:12 36.6 64 16 146/85 (105) 94 Room Air 08/30/16 01:16 Room Air 08/29/16 22:53 36.7 66 18 149/90 (109) 94 Room Air 08/29/16 20:13 Room Air 08/29/16 17:08 Room Air 08/29/16 15:36 36.5 72 18 153/97 (115) 95 Room Air General Appearance: WD/WN Head: normocephalic Neck: supple Respiratory/Chest: lungs clear Cardiovascular: regular rate, rhythm, no edema, no JVD Abdomen: normal bowel sounds, non tender, non distended, soft Extremities: normal range of motion, non-tender, normal inspection Laboratory Results: Results Past 24 Hours Test 08/30/16 07:34 08/30/16 08:35 Range/Units Sodium Level 139 136-145 mmol/L Potassium Level 3.9 3.5-5.1 mmol/L Chloride Level 108 98-107 mmol/L Carbon Dioxide Level 27 21-32 mmol/L Anion Gap 4.0 3-11 mmol/L Blood Urea Nitrogen 14 7-18 mg/dl Creatinine 1.10 0.60-1.40 mg/dl Est Creatinine Clear Calc Drug Dose 96.8 ml/min Estimated GFR () 82.4 Estimated GFR (Non- 71.1 BUN/Creatinine Ratio 12.6 10-20 Random Glucose 96 70-99 mg/dl Calcium Level 8.3 8.5-10.1 mg/dl Assessment & Plan F/U SBO pt is doing slightly better, but not pass BM or gas yet Small Bowel series study to R/O tumor will F/U, 08/28/2016 doing better, passed gas. continue treatment, will F/U, 08/29/2016 pt is doing better, Small bowel study- possible Crohn'c disease. consult GI for endoscopy D/C NGT clear diet I update information to pt, pt understood, I answered all questions, dulcolax 10 mg po once a day, x 1 day will F/U. 08/30/2016 pt is doing better, passed BM< no abdominal pain, GI will see him, no surgery issue now, sign off , please call me if need me Thanks, F/U SBO pt is doing slightly better, but not pass BM or gas yet Small Bowel series study to R/O tumor will F/U, 08/28/2016 doing better, passed gas. continue treatment, will F/U, 08/29/2016 pt is doing better, Small bowel study- possible Crohn'c disease. consult GI for endoscopy D/C NGT clear diet I update information to pt, pt understood, I answered all questions, dulcolax 10 mg po once a day, x 1 day will F/U.
--- NOTE | 2016-08-30 14:08 | Progress Note ---
Internal Med Progress Note Date of Service: Aug 30, 2016. Provider Documentation: SUBJECTIVE: Seen and examined at bedside. Feeling well today. Denies nausea, vomiting, abdominal pain Had 2 small BMs today. Denies chest pain, SOB, fever, chills. 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 ASSESSMENT & PLAN: Partial SBO: H/O Cholecystectomy Upper GI series: Possible Inflammatory bowel disease Vs fistulous tract from distal ileum to cecum CT abd: suggestive of partial SBO Tolerating clear liquid diet continue IV fluids, IV antibiotics Minimize pain meds Zofran for PRN nausea small bowel series: as below Appreciate Surgery and GI help Await for GI input Follow up Stool studies LUCY: Likely prerenal Resolved Cr:1.5 >>>1.1 Continue IV fluids Monitor renal function Hold HCTZ Leukocytosis: Likely reactive Resolved HTN: Stable Hold HCTZ for now Monitor Chronic Hepatitis C H/O Hemorrhoids and hematochezia 2 weeks ago Follows with GI No acute issues Follow up as outpatient H/O Osteoarthritis: Patient plans to defer surgery even if needed Stable DVT Px: SCDs Code Status: Full Code Disposition: Monitor for now PROCEDURES: Upper GI series: 1. Partial distal small bowel obstructive change. 2. Luminal narrowing and irregularity of the final 10 to 15 cm of the small bowel, combined with what is possibly a small fistulous tract extending from the distal ileum to the region of the cecum. 3. An inflammatory bowel process is felt to be most likely, with the possibility of Crohn's disease considered. 4. Endoscopic evaluation is suggested when able to confirm or exclude this possibility. Vital Signs: Date Time Temp Pulse Resp B/P (MAP) Pulse Ox O2 Delivery O2 Flow Rate FiO2 08/30/16 08:30 Room Air 08/30/16 07:12 36.6 64 16 146/85 (105) 94 Room Air 08/30/16 01:16 Room Air 08/29/16 22:53 36.7 66 18 149/90 (109) 94 Room Air 08/29/16 20:13 Room Air 08/29/16 17:08 Room Air 08/29/16 15:36 36.5 72 18 153/97 (115) 95 Room Air Lab Results: Results Past 24 Hours Test 08/30/16 07:34 08/30/16 08:35 Range/Units Sodium Level 139 136-145 mmol/L Potassium Level 3.9 3.5-5.1 mmol/L Chloride Level 108 98-107 mmol/L Carbon Dioxide Level 27 21-32 mmol/L Anion Gap 4.0 3-11 mmol/L Blood Urea Nitrogen 14 7-18 mg/dl Creatinine 1.10 0.60-1.40 mg/dl Est Creatinine Clear Calc Drug Dose 96.8 ml/min Estimated GFR () 82.4 Estimated GFR (Non- 71.1 BUN/Creatinine Ratio 12.6 10-20 Random Glucose 96 70-99 mg/dl Calcium Level 8.3 8.5-10.1 mg/dl
[2016-08-30] MEDS: METRONIDAZOLE / NSS 500 MG in PREMIXED NSS 100 ML IV SCH ×2 (14:20→21:47)
[2016-08-30] MEDS: CIPROFLOXACIN / D5W 400 MG in PREMIXED IN D5W 200 ML IV SCH (14:28)
[2016-08-30 15:10] VITALS: BP 157/87; PULSE 70; TEMP 36.7; O2SAT 93
[2016-08-30 23:17] VITALS: BP 128/67; PULSE 72; TEMP 36.8; O2SAT 94
[2016-08-31] MEDS: CIPROFLOXACIN / D5W 400 MG in PREMIXED IN D5W 200 ML IV SCH ×2 (02:17→13:52)
[2016-08-31] MEDS: METRONIDAZOLE / NSS 500 MG in PREMIXED NSS 100 ML IV SCH ×3 (05:36→21:14)
[2016-08-31] MEDS: D5NSS + 20MEQ KCL 1,000 ML IV SCH ×2 (05:37→21:14)
[2016-08-31 07:47] VITALS: BP 132/92; PULSE 73; TEMP 36.9; O2SAT 94
[2016-08-31] MEDS: PANTOprazole INJ 40 MG in SYRINGE 0 ML IV SCH ×2 (08:42→21:14)
[2016-08-31 09:16] VITALS: O2SAT 94
--- NOTE | 2016-08-31 10:49 | Gastrointestinal Consultation ---
Gastrointestinal Consultation Date of Consultation: Aug 31, 2016 Attending Physician: Dr. Costello; consult from Dr. Dukes Consulting Physician: Dr. Deluca Reason for Consultation: Small bowel obstruction History of Present Illness Patient is a 61 year old male patient of Caroline Lin PA-C in [facility]. He carries a hx of HTN, Chronic Hepatitis C (resolution after third treatment regime which was managed by Dr. Lomas and Osteoarthritis. He was admitted on 08/27 for small bowel obstruction. Follow-up CT with 10 - 15 cm of distal ileum wall thickening, possible fistula suggestive of Crohn's. Patient was initially managed with NG decompression of the upper GI tract and nothing by mouth. He has been on clear liquids and tolerating that well now for 2 days. He continues with some abdominal distention but much improved. Now with 3 liquid bowel movements yesterday and 1 today. His pain is much improved; now very minimal. We were initially consulted on this patient late on 08/29. He was seen yesterday around 1 PM by myself and Dr. Deluca however this is the initial note on the consultation. Today, his symptoms are again further improved since yesterday. He is on Cipro Flagyl. White count was 17 on arrival resolving to normal by yesterday. He has been afebrile. Stool culture is pending, C. difficile is negative. He does not have a family history of autoimmune diseases specifically no ulcerative colitis or Crohn's disease. He has not had similar abdominal pain in the past, however he tells me that for years, he has had intermittent blood with bowel movements which she attributes to hemorrhoids. He has had colon polyps in the past he was due for colonoscopy last year. Previous colonoscopies by Dr. Lomas. Past Medical/Surgical History Medical Problems: (1) Small bowel obstruction Status: Acute Past Medical History: 1. Hypertension 2. Chronic Hepatitis C, resolved. 3. Osteoarthritis Past Surgical History: 1. Cholecystectomy 2. Colonoscopies. Family History FH: diabetes mellitus FH: hypertension Social History Smoking Status: Never Smoker Alcohol Use: none Drug Use: none Marital Status: Occupation Status: employed Allergies Coded Allergies: No Known Allergies (Unverified , 08/26/16) Current Medications Home Meds and Scripts Medications Dose Route/Sig Max Daily Dose Days Date Category Dulcolax (Bisacodyl) 5 Mg Tab 2 Tab PO UD 1 08/26/16 Reported Oxford 5MG/325MG (Acetaminophen/Hydrocodone Bitart) Tab 1 Tablet PO Q6H PRN 08/26/16 Reported Meloxicam 15 Mg Tab 1 Tab PO DAILY 08/26/16 Reported Hydrochlorothiazide 25 Mg Tab 1 Tab PO DAILY 08/26/16 Reported Review of Systems Constitutional: No fever, No chills, No sweats, No weight loss, No weakness Eyes: No eye pain, No redness ENT: No sore throat, No trouble swallowing, No pain on swallowing Respiratory: No cough, No wheezing, No shortness of breath, No dyspnea on exertion Cardiac: No chest pain, No edema, No palpitations Abdomen: + see HPI, + pain, + nausea, + diarrhea, + problem reported ( distention), No vomiting, No constipation, No GI bleeding, No dysphagia Neuro: No memory loss, No weakness, No numbness/tingling, No vertigo, No balance problems Psych: No depression symptoms, No anxiety, No insomnia Heme: No abnormal bleeding/bruising, No night sweats Endo: No excessive thirst, No excessive urination Skin: No rash, No itch, No new/changing skin lesions, No jaundice Physical Exam Date Time Temp Pulse Resp B/P (MAP) Pulse Ox O2 Delivery O2 Flow Rate FiO2 08/31/16 09:16 94 Room Air 08/31/16 07:47 36.9 73 16 132/92 (105) 94 Room Air 08/31/16 07:30 Room Air 08/31/16 00:10 Room Air 08/30/16 23:17 36.8 72 18 128/67 (87) 94 Room Air 08/30/16 16:00 Room Air 08/30/16 15:10 36.7 70 18 157/87 (110) 93 Room Air General Appearance: + mild distress (minimal) Eyes: normal inspection, EOMI Neck: supple, no adenopathy, thyroid normal, no JVD Respiratory/Chest: chest non-tender, lungs clear, normal breath sounds, no accessory muscle use Cardiovascular: regular rate, rhythm, no edema, no JVD, no murmur Abdomen: normal bowel sounds, soft, no organomegaly, + distended (mild), + tenderness (mild, diffuse) Extremities: normal inspection, no pedal edema, normal capillary refill Neurologic/Psych: alert, normal mood/affect, oriented x 3 Skin: normal color, no jaundice, warm/dry, no rash Laboratory Results Normal CBC and CMP yesterday. Impression Patient is a 61 year old male with small bowel obstruction, terminal ileitis suggestive of Crohn's disease. Plan 1. MR enterography today. 2. May resume clear liquid diet after MR enterography. Most likely would be advanced diet if no extensive abscess on MRE. 3. Will check stool culture results when available. 4. Plan for outpatient colonoscopy with Dr. Lomas in the next few weeks to months. 5. Cipro and Flagyl IV. 6. May consider adding steroids if MRE results are very suggestive of Crohn's. 7. Will continue to follow. I have personally seen and examined the patient with DIEGO Spence on . Her note reflects my exam and findings. I agree with her impression and plan. Improving. Cont antibiotics. Shabbir Deluca M.D.
[2016-08-31] MEDS ORDERED: NURSING VERBAL MED ORDER ONE (15:30)
[2016-08-31] MEDS ORDERED: GLUCAGON FOR INJ 1 MG VIAL ONE (15:39)
--- NOTE | 2016-08-31 15:41 | Progress Note ---
Internal Med Progress Note Date of Service: Aug 31, 2016. Provider Documentation: SUBJECTIVE: Seen and examined at bedside. Planned for MRI enterography today Had small BM today Denies nausea, vomiting, abdominal pain, blood in stools OBJECTIVE: Vital Signs-as noted below General Appearance: WD/WN, no apparent distress Head: normocephalic, atraumatic Eyes: normal inspection, PERRL, EOMI, sclerae normal ENT: normal ENT inspection, hearing grossly normal Neck: supple, trachea midline Respiratory/Chest: chest non-tender, lungs clear, normal breath sounds Cardiovascular: S1, S2, regular rate, rhythm, no murmur Abdomen/GI: soft, + distended, + Decreased bowel sounds Back: normal inspection Extremities/Musculoskelatal: normal inspection, + Trace edema 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 ASSESSMENT & PLAN: Partial SBO: H/O Cholecystectomy Upper GI series: Possible Inflammatory bowel disease Vs fistulous tract from distal ileum to cecum CT abd: suggestive of partial SBO Tolerating clear liquid diet continue IV fluids, IV antibiotics Minimize pain meds Zofran for PRN nausea small bowel series: as below Appreciate Surgery and GI help Await for GI input Stool studies: Negative MRI Enterography today May needs steroids if suggestive of Crohn's Clear liquid diet LUCY: Likely prerenal Resolved Cr:1.5 >>>1.1 Continue IV fluids Monitor renal function Hold HCTZ Leukocytosis: Likely reactive Resolved HTN: Elevated today Hydralazine PRN Hold HCTZ for now Monitor Chronic Hepatitis C H/O Hemorrhoids and hematochezia 2 weeks ago Follows with GI No acute issues Follow up as outpatient H/O Osteoarthritis: Patient plans to defer surgery even if needed Stable DVT Px: SCDs Code Status: Full Code Disposition: Monitor for now PROCEDURES: Upper GI series: 1. Partial distal small bowel obstructive change. 2. Luminal narrowing and irregularity of the final 10 to 15 cm of the small bowel, combined with what is possibly a small fistulous tract extending from the distal ileum to the region of the cecum. 3. An inflammatory bowel process is felt to be most likely, with the possibility of Crohn's disease considered. 4. Endoscopic evaluation is suggested when able to confirm or exclude this possibility. Vital Signs: Date Time Temp Pulse Resp B/P (MAP) Pulse Ox O2 Delivery O2 Flow Rate FiO2 08/31/16 16:00 36.8 68 18 186/109 (134) 94 Room Air 08/31/16 09:16 94 Room Air 08/31/16 07:47 36.9 73 16 132/92 (105) 94 Room Air 08/31/16 07:30 Room Air 08/31/16 00:10 Room Air 08/30/16 23:17 36.8 72 18 128/67 (87) 94 Room Air Lab Results:
[2016-08-31] MEDS ORDERED: GLUCAGON FOR INJ 1 MG VIAL IM ONE (15:45)
[2016-08-31 15:58] VITALS: BP 167/102
[2016-08-31 16:00] VITALS: BP 186/109; PULSE 68; TEMP 36.8; O2SAT 94
[2016-08-31] MEDS ORDERED: HydrALAZINE HCL 20 MG/ML VIAL IV. PRN (17:15)
[2016-08-31 17:28] VITALS: BP 147/92; PULSE 68; O2SAT 94
--- NOTE | 2016-08-31 17:40 | DIAGNOSTIC IMAGING REPORT ---
MR ENTEROGRAPHY OF THE ABDOMEN AND PELVIS WITHOUT A WITH CONTRAST CLINICAL HISTORY: Left lower quadrant abdominal pain. Distal small bowel obstruction. Possible Crohn's disease. Possible fistula. COMPARISON STUDY: CT scan dated 08/26/2016 FINDINGS: Imaging was performed in the coronal and axial planes before and after the administration of 13 cc of intravenous Gadavist. 2 mg of intravenous glucagon was injected intramuscularly into the deltoid. The examination is moderately limited from a technical standpoint secondary to the patient's large body habitus and wraparound artifact. Unfortunately the artifact is most pronounced in the region of the right lower quadrant and ileocecal region. There is a 3 mm cyst within the left hepatic lobe. There is a 4 mm cyst within the right hepatic lobe. The gallbladder surgically absent. No splenic masses are visualized. No pancreatic masses are visualized. No adrenal masses are visualized. No solid renal masses are visualized. There is no evidence of abdominal aortic dilatation. There are mildly dilated small bowel loops with multiple air-fluid levels. There is a suggestion of mild narrowing and bowel wall thickening involving the terminal ileum. Unfortunately this is a region of significant artifact. The findings could indicate a terminal ileitis (infectious versus inflammatory bowel disease. The appendix appears normal. IMPRESSION: 1. Moderately limited study from a technical standpoint with significant wraparound artifact in the region of the right lower quadrant and ileocecal valve. 2. Mildly dilated small bowel loops with multiple air-fluid levels. The findings are suggestive of a low-grade partial small bowel obstruction 3. Possible mild narrowing and bowel wall thickening involving the terminal ileum with mild hyperenhancement. This could indicate terminal ileitis (infectious versus inflammatory bowel disease) Electronically signed by: Wilmer Xavier M.D. 08/31/2016 5:39 PM Dictated Date/Time: 08/31/2016 5:17 PM
[2016-08-31 23:05] VITALS: BP 129/64; PULSE 68; TEMP 37; O2SAT 93
[2016-09-01] MEDS: METRONIDAZOLE / NSS 500 MG in PREMIXED NSS 100 ML IV SCH ×3 (05:14→22:02)
[2016-09-01] MEDS: CIPROFLOXACIN / D5W 400 MG in PREMIXED IN D5W 200 ML IV SCH ×2 (05:14→17:44)
[2016-09-01 06:45] LABS: BASO % 0.1 %; BASO ABS # 0.01 K/uL (0-0.2); COMPLETE YES; EOS % 2.9 %; HEMATOCRIT 42.8 % (42-52); IG% 0.1 %; LYMPH % 17.4 %; LYMPH ABS # 1.33 K/uL (1.2-3.4); MEAN CELL VOLUME 89.7 fL (80-100); MEAN CORPUSCULAR HEMOGLOBIN 31.2 pg (25-34); MEAN CORPUSCULAR HGB CONC 34.8 g/dl (32-36); MEAN PLATELET VOLUME 9.3 fL (7.4-10.4); MONO % 6.7 %; NEUT % 72.8 %; PLATELET COUNT 219 K/uL (130-400); RED BLOOD COUNT 4.77 M/uL (4.7-6.1); WHITE BLOOD COUNT 7.65 K/uL (4.8-10.8)
[2016-09-01 07:08] LABS: CALCIUM 8.5 mg/dl (8.5-10.1); POTASSIUM 3.3 mmol/L (3.5-5.1)
[2016-09-01 08:07] VITALS: BP 126/85; PULSE 75; TEMP 36.6; O2SAT 91
[2016-09-01] MEDS: PANTOprazole INJ 40 MG in SYRINGE 0 ML IV SCH ×2 (08:52→20:55)
[2016-09-01] MEDS: D5NSS + 20MEQ KCL 1,000 ML IV SCH (09:57)
--- NOTE | 2016-09-01 12:35 | Gastroenterology Progress Note ---
Progress Note Date of Service: Sep 01, 2016 Subjective Pt evaluation today including: conversation w/ patient, physical exam, chart review, lab review, review of studies, review of inpatient medication list Mr. Flores is a 61-year-old male who was admitted with a partial small bowel obstruction. CT and MRE suggestive of Crohn's disease, possible fistula on CT though this was not shown on MRE. Today the patient remains was some mild abdominal abdominal pain, and distention. He has been tolerating clear liquids for a few days. He is hungry and would like to try food. He is passing about 2 soft small yellow bowel movements per day. C. difficile stool cultures were negative. Review of Systems Respiratory: No cough Cardiac: No chest pain Abdomen: + pain, + problem reported (distention) Male : No dysuria Neuro: No memory loss Psych: No depression symptoms Heme: No abnormal bleeding/bruising Endo: No fatigue Skin: No rash Medications Current Inpatient Medications Medications (Trade) Dose Ordered Sig/Arnie Route Start Time Stop Time Status Last Admin Dose Admin Acetaminophen (Tylenol Tab) 650 mg Q4H PRN PO 08/26/16 18:30 09/25/16 18:29 Ondansetron HCl (Zofran Inj) 4 mg Q6H PRN IV 08/26/16 18:30 09/25/16 18:29 08/29/16 12:01 4 MG Potassium Chloride/Dextrose/ Sod Cl 1,000 ml @ 75 mls/hr [id number] IV 08/28/16 08:30 09/27/16 08:29 09/01/16 09:57 75 MLS/HR Pantoprazole Sodium 40 mg/ Syringe 10 ml @ 5 mls/min Q12@0900,2100 IV 08/28/16 21:00 09/27/16 20:59 09/01/16 08:52 5 MLS/MIN Morphine Sulfate (MoRPHine SULFATE INJ) 1 mg Q6H PRN IV 08/28/16 17:00 09/09/16 18:59 Menthol (Nice Patsy) 1 patsy PRN PRN PO 08/28/16 17:15 09/27/16 17:14 08/28/16 20:44 1 PATSY Ciprofloxacin/ Dextrose 400 mg/ Prmx 200 ml @ 100 mls/hr Q12H IV 08/30/16 14:00 09/09/16 13:59 09/01/16 05:14 100 MLS/HR Metronidazole 500 mg/Prmx 100 ml @ 100 mls/hr Q8H IV 08/30/16 14:00 09/09/16 13:59 09/01/16 05:14 100 MLS/HR Hydralazine HCl (HydrALAZINE INJ) 10 mg Q6H PRN IV. 08/31/16 17:15 09/30/16 17:14 Budesonide (Entocort EC Cap) 9 mg QAM PO 09/02/16 09:00 10/02/16 08:59 Objective Vital Signs Date Time Temp Pulse Resp B/P (MAP) Pulse Ox O2 Delivery O2 Flow Rate FiO2 09/01/16 09:12 Room Air 91.0 09/01/16 08:07 36.6 75 22 126/85 (99) 91 Room Air 09/01/16 07:20 Room Air 09/01/16 00:00 Room Air 08/31/16 23:05 37.0 68 16 129/64 (85) 93 Room Air 08/31/16 17:28 68 18 147/92 (110) 94 Room Air 08/31/16 16:00 36.8 68 18 186/109 (134) 94 Room Air 08/31/16 15:58 167/102 (123) 08/31/16 15:20 Room Air Physical Exam General Appearance: no apparent distress ENT: pharynx normal Neck: supple, thyroid normal, no JVD Respiratory/Chest: lungs clear Cardiovascular: regular rate, rhythm, no JVD, no murmur Abdomen: normal bowel sounds, soft, + distended (mild, diffuse mild), + tenderness Extremities: non-tender, no pedal edema Neurologic/Psych: alert, normal mood/affect, oriented x 3 Skin: no jaundice Laboratory Results Last 24 Hours Test 09/01/16 06:05 White Blood Count 7.65 K/uL Red Blood Count 4.77 M/uL Hemoglobin 14.9 g/dL Hematocrit 42.8 % Mean Corpuscular Volume 89.7 fL Mean Corpuscular Hemoglobin 31.2 pg Mean Corpuscular Hemoglobin Concent 34.8 g/dl Platelet Count 219 K/uL Mean Platelet Volume 9.3 fL Neutrophils (%) (Auto) 72.8 % Lymphocytes (%) (Auto) 17.4 % Monocytes (%) (Auto) 6.7 % Eosinophils (%) (Auto) 2.9 % Basophils (%) (Auto) 0.1 % Neutrophils # (Auto) 5.57 K/uL Lymphocytes # (Auto) 1.33 K/uL Monocytes # (Auto) 0.51 K/uL Eosinophils # (Auto) 0.22 K/uL Basophils # (Auto) 0.01 K/uL RDW Standard Deviation 43.0 fL RDW Coefficient of Variation 13.2 % Immature Granulocyte % (Auto) 0.1 % Immature Granulocyte # (Auto) 0.01 K/uL Sodium Level 140 mmol/L Potassium Level 3.3 mmol/L Chloride Level 108 mmol/L Carbon Dioxide Level 24 mmol/L Anion Gap 8.0 mmol/L Blood Urea Nitrogen 8 mg/dl Creatinine 1.00 mg/dl Est Creatinine Clear Calc Drug Dose 106.4 ml/min Estimated GFR () 92.4 Estimated GFR (Non- 79.7 BUN/Creatinine Ratio 8.0 Random Glucose 133 mg/dl Calcium Level 8.5 mg/dl Assessment and Plan Mr. Flores a 61-year-old male with terminal ileitis, possible Crohn's disease versus infectious present this is less likely as symptoms persist and stool studies have been negative. 1. Will treat also Crohn's with Cipro Flagyl and will start Entocort 9 mg daily. 2. Will advance diet to full liquids. 3. If able to tolerate diet we'll discharge. 4. Anticipate colonoscopy in approximately [address] Lomas. This has been ordered in the outpatient chart and our office will call him to set this up. I have personally seen and examined the patient with DIEGO Spence. Her note reflects my exam and findings. I agree with her impression and plan. Reviewed MRE with patient and . Advance diet as tolerates. Shabbir Deluca M.D.
[2016-09-01] MEDS ORDERED: POTASSIUM CHLORIDE 20 MEQ/15 ML UDC PO ONE (15:30)
--- NOTE | 2016-09-01 15:30 | Progress Note ---
Internal Med Progress Note Date of Service: Sep 01, 2016. Provider Documentation: SUBJECTIVE: Seen and examined at bedside. States feeling well today Denies nausea, vomiting, abdominal pain Had One BM today OBJECTIVE: Vital Signs-as noted below General Appearance: WD/WN, no apparent distress Head: normocephalic, atraumatic Eyes: normal inspection, PERRL, EOMI, sclerae normal ENT: normal ENT inspection, hearing grossly normal Neck: supple, trachea midline Respiratory/Chest: chest non-tender, lungs clear, normal breath sounds Cardiovascular: S1, S2, regular rate, rhythm, no murmur Abdomen/GI: soft, + distended, + Decreased bowel sounds Back: normal inspection Extremities/Musculoskelatal: normal inspection, + Trace edema 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 ASSESSMENT & PLAN: Partial SBO: H/O Cholecystectomy MR Enterography: possible Crohn's disease Upper GI series: Possible Inflammatory bowel disease Vs fistulous tract from distal ileum to cecum CT abd: suggestive of partial SBO continue IV fluids, IV antibiotics and Entocort Zofran for PRN nausea Appreciate Surgery and GI help Stool studies: Negative Full liquid diet Possible colonoscopy in [address] Lomas as outpatient Hypokalemia: Will replace and monitor LUCY: Likely prerenal Resolved Cr:1.5 >>>1.1 Continue IV fluids Monitor renal function Hold HCTZ HTN: Hydralazine PRN Hold HCTZ for now Monitor Chronic Hepatitis C H/O Hemorrhoids and hematochezia 2 weeks ago Follows with GI No acute issues Follow up as outpatient H/O Osteoarthritis: Patient plans to defer surgery even if needed Stable DVT Px: SCDs Code Status: Full Code Disposition: Monitor for now PROCEDURES: Upper GI series: 1. Partial distal small bowel obstructive change. 2. Luminal narrowing and irregularity of the final 10 to 15 cm of the small bowel, combined with what is possibly a small fistulous tract extending from the distal ileum to the region of the cecum. 3. An inflammatory bowel process is felt to be most likely, with the possibility of Crohn's disease considered. 4. Endoscopic evaluation is suggested when able to confirm or exclude this possibility. MR Enterography: 1. Moderately limited study from a technical standpoint with significant wraparound artifact in the region of the right lower quadrant and ileocecal valve. 2. Mildly dilated small bowel loops with multiple air-fluid levels. The findings are suggestive of a low-grade partial small bowel obstruction 3. Possible mild narrowing and bowel wall thickening involving the terminal ileum with mild hyperenhancement. This could indicate terminal ileitis (infectious versus inflammatory bowel disease) Vital Signs: Date Time Temp Pulse Resp B/P (MAP) Pulse Ox O2 Delivery O2 Flow Rate FiO2 09/01/16 09:12 Room Air 91.0 09/01/16 08:07 36.6 75 22 126/85 (99) 91 Room Air 09/01/16 07:20 Room Air 09/01/16 00:00 Room Air 08/31/16 23:05 37.0 68 16 129/64 (85) 93 Room Air 08/31/16 17:28 68 18 147/92 (110) 94 Room Air 08/31/16 16:00 36.8 68 18 186/109 (134) 94 Room Air 08/31/16 15:58 167/102 (123) Lab Results: Results Past 24 Hours Test 09/01/16 06:05 Range/Units White Blood Count 7.65 4.8-10.8 K/uL Red Blood Count 4.77 4.7-6.1 M/uL Hemoglobin 14.9 14.0-18.0 g/dL Hematocrit 42.8 42-52 % Mean Corpuscular Volume 89.7 80-100 fL Mean Corpuscular Hemoglobin 31.2 25-34 pg Mean Corpuscular Hemoglobin Concent 34.8 32-36 g/dl Platelet Count 219 130-400 K/uL Mean Platelet Volume 9.3 7.4-10.4 fL Neutrophils (%) (Auto) 72.8 % Lymphocytes (%) (Auto) 17.4 % Monocytes (%) (Auto) 6.7 % Eosinophils (%) (Auto) 2.9 % Basophils (%) (Auto) 0.1 % Neutrophils # (Auto) 5.57 1.4-6.5 K/uL Lymphocytes # (Auto) 1.33 1.2-3.4 K/uL Monocytes # (Auto) 0.51 0.11-0.59 K/uL Eosinophils # (Auto) 0.22 0-0.5 K/uL Basophils # (Auto) 0.01 0-0.2 K/uL RDW Standard Deviation 43.0 36.4-46.3 fL RDW Coefficient of Variation 13.2 11.5-14.5 % Immature Granulocyte % (Auto) 0.1 % Immature Granulocyte # (Auto) 0.01 0.00-0.02 K/uL Sodium Level 140 136-145 mmol/L Potassium Level 3.3 3.5-5.1 mmol/L Chloride Level 108 98-107 mmol/L Carbon Dioxide Level 24 21-32 mmol/L Anion Gap 8.0 3-11 mmol/L Blood Urea Nitrogen 8 7-18 mg/dl Creatinine 1.00 0.60-1.40 mg/dl Est Creatinine Clear Calc Drug Dose 106.4 ml/min Estimated GFR () 92.4 Estimated GFR (Non- 79.7 BUN/Creatinine Ratio 8.0 10-20 Random Glucose 133 70-99 mg/dl Calcium Level 8.5 8.5-10.1 mg/dl
[2016-09-01 15:38] VITALS: BP 150/92; PULSE 75; TEMP 36.8; O2SAT 92
[2016-09-01 23:10] VITALS: BP 147/87; PULSE 72; TEMP 36.8; O2SAT 94
[2016-09-02] MEDS: METRONIDAZOLE / NSS 500 MG in PREMIXED NSS 100 ML IV SCH (06:01)
[2016-09-02] MEDS: CIPROFLOXACIN / D5W 400 MG in PREMIXED IN D5W 200 ML IV SCH (06:01)
[2016-09-02] MEDS: D5NSS + 20MEQ KCL 1,000 ML IV SCH (06:01)
[2016-09-02 06:58] VITALS: BP 157/92; PULSE 72; O2SAT 92
[2016-09-02 07:08] LABS: BUN/CREATININE RATIO 6.8 (10-20); CALCIUM 9.1 mg/dl (8.5-10.1); CREATININE 1.1 mg/dl (0.60-1.40)
--- NOTE | 2016-09-02 07:12 | Gastroenterology Progress Note ---
Progress Note Date of Service: Sep 02, 2016 Subjective Pt evaluation today including: conversation w/ patient, physical exam, chart review, lab review, review of studies, review of inpatient medication list Mr. Flores is a 61 yr old male admitted on 08/[address] SBO with CT, MRE suggestive of new Crohn's. Abd remains mildly distended but smaller, softer and now only mild discomfort. Passing small soft BMs 1-2/day. Yesterday, tolerated full liquids well. Review of Systems Constitutional: No fever Respiratory: No cough Cardiac: No chest pain Abdomen: + pain (minimal), + problem reported (two loose small BMs today), No nausea, No vomiting, No diarrhea Musculoskeletal: No joint pain Male : No dysuria Neuro: No memory loss Psych: No depression symptoms Heme: No abnormal bleeding/bruising Endo: No fatigue Skin: No rash, No jaundice Medications Current Inpatient Medications Medications (Trade) Dose Ordered Sig/Arnie Route Start Time Stop Time Status Last Admin Dose Admin Acetaminophen (Tylenol Tab) 650 mg Q4H PRN PO 08/26/16 18:30 09/25/16 18:29 Ondansetron HCl (Zofran Inj) 4 mg Q6H PRN IV 08/26/16 18:30 09/25/16 18:29 08/29/16 12:01 4 MG Potassium Chloride/Dextrose/ Sod Cl 1,000 ml @ 50 mls/hr Q20H IV 08/28/16 08:30 09/27/16 08:29 09/02/16 06:01 50 MLS/HR Pantoprazole Sodium 40 mg/ Syringe 10 ml @ 5 mls/min Q12@0900,2100 IV 08/28/16 21:00 09/27/16 20:59 09/01/16 20:55 5 MLS/MIN Morphine Sulfate (MoRPHine SULFATE INJ) 1 mg Q6H PRN IV 08/28/16 17:00 09/09/16 18:59 Menthol (Nice Patsy) 1 patsy PRN PRN PO 08/28/16 17:15 09/27/16 17:14 08/28/16 20:44 1 PATSY Ciprofloxacin/ Dextrose 400 mg/ Prmx 200 ml @ 100 mls/hr Q12H IV 08/30/16 14:00 09/09/16 13:59 09/02/16 06:01 100 MLS/HR Metronidazole 500 mg/Prmx 100 ml @ 100 mls/hr Q8H IV 08/30/16 14:00 09/09/16 13:59 09/02/16 06:01 100 MLS/HR Hydralazine HCl (HydrALAZINE INJ) 10 mg Q6H PRN IV. 08/31/16 17:15 09/30/16 17:14 Budesonide (Entocort EC Cap) 9 mg QAM PO 09/02/16 09:00 10/02/16 08:59 Objective Vital Signs Date Time Temp Pulse Resp B/P (MAP) Pulse Ox O2 Delivery O2 Flow Rate FiO2 09/02/16 06:58 72 19 157/92 (113) 92 Room Air 09/01/16 23:15 Room Air 09/01/16 23:10 36.8 72 16 147/87 (107) 94 Room Air 09/01/16 15:38 36.8 75 18 150/92 (111) 92 Room Air 09/01/16 15:00 Room Air 09/01/16 09:12 Room Air 91.0 09/01/16 08:07 36.6 75 22 126/85 (99) 91 Room Air 09/01/16 07:20 Room Air Physical Exam General Appearance: no apparent distress Neck: no JVD Respiratory/Chest: lungs clear Cardiovascular: regular rate, rhythm, no JVD, no murmur Abdomen: soft, + tenderness (mildly) Extremities: no pedal edema Neurologic/Psych: alert, normal mood/affect, oriented x 3 Skin: no jaundice Laboratory Results Last 24 Hours Test 09/02/16 06:26 Assessment and Plan Mr. Flores a 61-year-old male with terminal ileitis, possible Crohn's disease versus less likely infectious enteritis. 1. Continue Cipro Flagyl x total 10 days. Can change to po. Continue Entocort 9 mg daily. This can be tapered in the OP setting by GI. 2. Will advance diet to soft, low residual diet. 3. If able to tolerate diet then no GI contraindication to DC. . 4. Colonoscopy in approximately 1 month (ordered in [facility]) with OP GI f/u with Dr. Lomas or other GI provider after colonoscopy. I have personally seen and examined the patient with Lorella Leonides, FERRY ENGINEER. Her note reflects my exam and findings. I agree with her impression and plan. Tolerating diet. Cont Entocort and follow up as out patient with regular providers. Shabbir Deluca M.D.
[2016-09-02] MEDS ORDERED: BUDESONIDE EC 3 MG CAP PO SCH (09:00)
[2016-09-02] MEDS: PANTOprazole INJ 40 MG in SYRINGE 0 ML IV SCH (09:06)
[2016-09-02] MEDS ORDERED: HYDROCHLOROTHIAZIDE 25 MG TAB PO ONE (11:30)
[2016-09-02 13:59] VITALS: BP 145/89
[2016-09-02] MEDS ORDERED: METRONIDAZOLE 500 MG TAB PO SCH (14:00)
--- NOTE | 2016-09-02 14:15 | Progress Note ---
Internal Med Progress Note Date of Service: Sep 02, 2016. Provider Documentation: SUBJECTIVE: Seen and examined at bedside. Tolerated GI Soft diet well Had 2 BMs today Denies nausea, vomiting, abdominal pain OBJECTIVE: Vital Signs-as noted below General Appearance: WD/WN, no apparent distress Head: normocephalic, atraumatic Eyes: normal inspection, PERRL, EOMI, sclerae normal ENT: normal ENT inspection, hearing grossly normal Neck: supple, trachea midline Respiratory/Chest: chest non-tender, lungs clear, normal breath sounds Cardiovascular: S1, S2, regular rate, rhythm, no murmur Abdomen/GI: soft, + distended, + Decreased bowel sounds Back: normal inspection Extremities/Musculoskelatal: normal inspection, + Trace edema Neurologic/Psych: wood room hand II-XII nml as tested, no motor/sensory deficits, alert, normal mood/affect, oriented x 3 Skin: normal color, warm/dry Lab data as noted below. ASSESSMENT & PLAN: Partial SBO: H/O Cholecystectomy MR Enterography: possible Crohn's disease Upper GI series: Possible Inflammatory bowel disease Vs fistulous tract from distal ileum to cecum CT abd: suggestive of partial SBO continue IV fluids, IV antibiotics >>>Switched to PO and Entocort Zofran for PRN nausea Appreciate Surgery and GI help Stool studies: Negative Tolerated GI soft diet Possible colonoscopy in [address] Lomas as outpatient Hypokalemia: Resolved monitor LUCY: Likely prerenal Resolved Cr:1.5 >>>1.1 S/P IV fluids Monitor renal function HTN: Hydralazine PRN Resume HCTZ Monitor Chronic Hepatitis C H/O Hemorrhoids and hematochezia 2 weeks ago Follows with GI No acute issues Follow up as outpatient H/O Osteoarthritis: Patient plans to defer surgery even if needed Stable DVT Px: SCDs Code Status: Full Code Disposition: Plan to discharge home today Follow up with on 09/07/16 at 11:00AM Complete the antibiotic course as prescribed Take Entocort 9 mg daily as advised Follow up with your tire maker as advised Get Colonoscopy in 1 month as scheduled PROCEDURES: Upper GI series: 1. Partial distal small bowel obstructive change. 2. Luminal narrowing and irregularity of the final 10 to 15 cm of the small bowel, combined with what is possibly a small fistulous tract extending from the distal ileum to the region of the cecum. 3. An inflammatory bowel process is felt to be most likely, with the possibility of Crohn's disease considered. 4. Endoscopic evaluation is suggested when able to confirm or exclude this possibility. MR Enterography: 1. Moderately limited study from a technical standpoint with significant wraparound artifact in the region of the right lower quadrant and ileocecal valve. 2. Mildly dilated small bowel loops with multiple air-fluid levels. The findings are suggestive of a low-grade partial small bowel obstruction 3. Possible mild narrowing and bowel wall thickening involving the terminal ileum with mild hyperenhancement. This could indicate terminal ileitis (infectious versus inflammatory bowel disease) Vital Signs: Date Time Temp Pulse Resp B/P (MAP) Pulse Ox O2 Delivery O2 Flow Rate FiO2 09/02/16 13:59 145/89 (107) 09/02/16 07:30 Room Air 09/02/16 06:58 72 19 157/92 (113) 92 Room Air 09/01/16 23:15 Room Air 09/01/16 23:10 36.8 72 16 147/87 (107) 94 Room Air 09/01/16 15:38 36.8 75 18 150/92 (111) 92 Room Air 09/01/16 15:00 Room Air Lab Results: Results Past 24 Hours Test 09/02/16 06:26 Range/Units Sodium Level 141 136-145 mmol/L Potassium Level 4.0 3.5-5.1 mmol/L Chloride Level 109 98-107 mmol/L Carbon Dioxide Level 27 21-32 mmol/L Anion Gap 5.0 3-11 mmol/L Blood Urea Nitrogen 8 7-18 mg/dl Creatinine 1.10 0.60-1.40 mg/dl Est Creatinine Clear Calc Drug Dose 96.8 ml/min Estimated GFR () 82.4 Estimated GFR (Non- 71.1 BUN/Creatinine Ratio 6.8 10-20 Random Glucose 105 70-99 mg/dl Calcium Level 9.1 8.5-10.1 mg/dl
[2016-09-02] MEDS ORDERED: CPR500 PO (14:18)
[2016-09-02] MEDS ORDERED: ENT3 PO (14:18)
[2016-09-02] MEDS ORDERED: MTR500 PO (14:18)
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
[2016-09-02 15:04] VITALS: BP 158/92; PULSE 72; TEMP 36.8; O2SAT 92
[2016-09-02 16:12] VITALS: BP 158/92; PULSE 72; TEMP 36.8; O2SAT 92
[2016-09-02] MEDS ORDERED: CIPROFLOXACIN 500 MG TAB PO SCH (21:00)
[2016-09-03] MEDS ORDERED: HYDROCHLOROTHIAZIDE 25 MG TAB PO SCH (09:00)
== END 2016-09-02 18:31 | disposition home or self-care (01) | DRG 389 ==
LOC: C.EDB 13:36 → C.MSW 18:55 → ENRESERV 19:28
PROVIDERS: ADMIT Internal Medicine; ATTEND Internal Medicine
DX: K56.60 Unspecified intestinal obstruction (principal); N17.9 Acute kidney failure, unspecified; B18.2 Chronic viral hepatitis C; K52.9 Noninfective gastroenteritis and colitis, unspecified; E87.6 Hypokalemia; I10 Essential (primary) hypertension; D72.829 Elevated white blood cell count, unspecified; Z79.899 Other long term (current) drug therapy

== ENCOUNTER → 2016-10-26 | Outpatient (CLI) | payer BC ==
[~2016-10-26] MED LIST changes: +BISA-16 PO; +CPR500 PO; +ENT3 PO; +HYDR25TA5 PO; +MELO15TA4 PO; +MTR500 PO
--- NOTE | 2016-10-26 09:05 | DIAGNOSTIC IMAGING REPORT ---
CT ABD/PELVIS IV AND ORAL CONT (CT enterography) CLINICAL HISTORY: Abnormal MRI study. Possible Crohn's disease. COMPARISON STUDY: CT scan dated 08/26/2016, MRI dated 08/31/2016 TECHNIQUE: Following the IV administration of 94 mL of Optiray-320, CT scan of the abdomen and pelvis was performed from the lung bases to the proximal femurs. Images are reviewed in the axial, sagittal, and coronal planes. IV contrast was administered without complication. A dose lowering technique was utilized adhering to the principles of ALARA. CT DOSE: 1567.32 mGy.cm FINDINGS: Lower chest: There are mild bibasal atelectatic changes. There is mild elevation of the left hemidiaphragm. Liver: There is scattered tiny hypodensities, similar to the prior study and likely representing cysts. Gallbladder: Surgically absent Spleen: Normal in size and attenuation. Pancreas: Unremarkable. Adrenal glands: Unremarkable. Kidneys: There is symmetric renal cortical enhancement. The kidneys are normal in size without hydronephrosis. Bowel: There are no transition zones indicate bowel obstruction. The appendix appears normal. The terminal ileum appears normal. There is no pathologic bowel wall or mesenteric enhancement. There is minimal submucosal fat hypertrophy within the cecum. There is borderline diffuse bowel wall thickening within the rectosigmoid. Peritoneum: There is minimal infiltration of the central mesentery, unchanged from the preceding study. Vasculature: The abdominal aorta is normal in course and caliber. Adenopathy: There are a few minimally prominent central mesenteric lymph nodes, unchanged from the preceding examination. Pelvic viscera: The bladder, and pelvic viscera are unremarkable. Skeletal structures: No destructive osseous lesions are seen. IMPRESSION: 1. No evidence of bowel obstruction. No evidence of free air 2. No inflammatory changes are visualized within the terminal ileum. 3. Minimal infiltration of the central mesentery with prominent central mesenteric lymph nodes. This finding remains unchanged from the preceding examination. 4. Borderline diffuse bowel wall thickening within the rectosigmoid Electronically signed by: Wilmer Xavier M.D. 10/26/2016 9:04 AM Dictated Date/Time: 10/26/2016 8:54 AM
== END | disposition home or self-care (01) ==
LOC: C.CTS 07:33
PROVIDERS: ATTEND Internal Medicine Gastroenterology
DX: R93.5 Abnormal findings on diagnostic imaging of other abdominal regions, including retroperitoneum (principal)

== ENCOUNTER 2021-07-26 05:19 | Inpatient (IN) ==
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
[2021-07-26] MEDS ORDERED: LR 15ML/HR IV SCH (06:00)
[2021-07-26] MEDS ORDERED: ATROPINE SULFATE 0.1 MG/ML 10ML SYR IV PRN (06:56)
[2021-07-26] MEDS ORDERED: ePHEDrine sulfate 50 MG/ML AMP IV PRN (06:56)
[2021-07-26] MEDS ORDERED: ONDANSETRON INJ 2 MG/ML 2 ML VIAL IV PRN ×2 (06:56→12:17)
[2021-07-26] MEDS ORDERED: MIDAZOLAM HCL 1 MG/ML 2ML VIAL ONE (07:02)
[2021-07-26] MEDS ORDERED: fentaNYL citrate 100 MCG/2 ML VIAL ONE ×2 (07:02→08:49)
[2021-07-26] MEDS ORDERED: ACETAMINOPHEN 1000 MG/100 ML IV IV ONE (07:07)
[2021-07-26] MEDS ORDERED: ALBUMIN HUMAN 5% 12.5 GM/250 ML VIAL IV ONE (07:07)
--- NOTE | 2021-07-26 07:09 | History & Physical Bridge Note ---
Date of Service July 26, 2021 History & Physical Bridge Note I have examined the patient, reviewed the History & Physical and in the interval since the performance of the History & Physical I have noted the following changes of clinical significance: no changes noted
[2021-07-26] MEDS ORDERED: BUPIVACAINE 0.5 % 5 MG/1 ML MPF 30ML VIAL ONE (07:11)
[2021-07-26] MEDS ORDERED: LIDOCAINE 2% 2 ML VIAL/AMP(20MG/ML) INFIL ONE (08:01)
[2021-07-26] MEDS ORDERED: ROCURONIUM BROMIDE 10 MG/ML 5 ML VIAL IV ONE ×4 (08:01→09:25)
[2021-07-26] MEDS ORDERED: PROPOFOL IV EMULSION 10 MG/ML 20 ML VIAL IV ONE (08:01)
[2021-07-26] MEDS ORDERED: ONDANSETRON INJ 2 MG/ML 2 ML VIAL ONE (08:01)
[2021-07-26] MEDS ORDERED: DEXAMETHASONE SOD INJ 4 MG/ML VIAL ONE (08:01)
[2021-07-26] MEDS ORDERED: SUGAMMADEX SODIUM 200 MG/2 ML VIAL IV ONE (08:22)
[2021-07-26] MEDS ORDERED: KETAMINE 50 MG/5 ML SYRINGE ONE (09:00)
[2021-07-26] MEDS ORDERED: HYDROmorphone INJ 2 MG/ML SYR/VIAL ONE (09:04)
--- NOTE | 2021-07-26 10:28 | Post Operative Brief Note ---
Immediate Post Op Note v1 Date of Surgery July 26, 2021 Pre & Post Diagnosis Operation Date: 07/26/21 07:15 Pre-Op Diagnosis: Malignant Neoplasm of Ascending Colon Post-Op Diagnosis: Malignant Neoplasm of Ascending Colon I identified the patient and participated in the time-out.: Yes Procedure Operation Date: 07/26/21 07:15 Actual Procedures p Laparoscopic assisted Right Hemicolectomy(Right) - Bertin Harris MD Surgeon Bertin Harris MD Life Skills Educator LEANDER Choudhury assisted with tissue retraction, camera op, closure Estimated Blood Loss 25 Findings Consistent with Post-Op Diagnosis Drains Da Silva Catheter (16 thai Da Silva Inserted prior to procedure starting by Aniya Thompson RN)
--- NOTE | 2021-07-26 10:35 | Operative Report ---
Post Operative Report Pre & Post Diagnosis Operation Date: 07/26/21 07:15 Pre-Op Diagnosis: Malignant Neoplasm of Ascending Colon Post-Op Diagnosis: Malignant Neoplasm of Ascending Colon I identified the patient and participated in the time-out.: Yes Procedure Operation Date: 07/26/21 07:15 Actual Procedures p Laparoscopic assisted Right Hemicolectomy(Right) - Bertin Harris MD Surgeon Bertin Harris MD Production Dispatcher LEANDER Choudhury assisted with tissue retraction, camera op, closure Estimated Blood Loss 25 Findings Consistent with Post-Op Diagnosis Specimens Right colon including appendix and terminal ileum Anesthesia Type General Complications No immediate complications Description of Procedure Patient taken to the operating room, placed supine on the operating table. A timeout was performed, perioperative antibiotics were administered, SCD boots were placed. A Da Silva catheter was placed. After adequate anesthesia and analgesia was obtained, the abdomen was prepped and draped in the normal sterile fashion. Incision was made in the supraumbilical region carried down to the level of the fascia. The fascia was grasped with a trach hook, and a varies needle was used to enter the abdominal cavity. The abdomen was insufflated to pressure 15 mmHg, and 12 mm trochars placed this location. The abdomen was surveyed. 2 5 mm trochars were placed in the upper abdomen, and 112 mm trochars placed in the lower abdomen on the left. Another 5 mm was placed in the lower right abdomen. The patient was placed in reverse Trendelenburg and was airplane to the left. Is able to trace the bowel to the terminal ileum and cecum. There appeared to b e some nodules on the outside of the cecum and terminal ileum and the ileal sail. The mesentery was quite short, and the colon was scarred into the pelvic sidewall as well as into the right upper quadrant due to a prior gallbladder surgery. Body habitus also presented a challenge given the short mesentery and the lack of visualization. We began by mobilizing the terminal ileum and cecum off the white line of T[place]t with the harmonic scalpel. This continued up into the right upper quadrant. The colon was quite scarred into the gallbladder fossa. We were able to mobilize the majority of this laparoscopically again using the harmonic scalpel and gentle traction on the colon. At this point we are able to lift the colon up and assess the colonic mesentery. The ileocolic artery pedicle was identified and was dissected circumferentially with the harmonic scalpel. The pedicle was taken with a vascular load of the Endo MCKAY stapler. Further mobilization was done laparoscopically. At this point the decision was made to make an upper midline incision. The abdomen was desufflated. Upper midline incision was made encompassing the midline incision for the camera port. This was carried down to the fascia. The fascia was opened to its fullest extent, opening the wound. A Bookwalter retractor was placed. Further dissection brought the colon up to the midline. Site was selected on the terminal ileum and was transected with the MCKAY stapler. The mesentery was taken with the LigaSure device. The dissection of the mesentery was carried out to a spot on the proximal transverse colon. Again the colon was transected with a MCKAY stapler. The specimen was sent off the field. We then fashioned a side to side, functional end-to-end anastomosis between the terminal ileum and the transverse colon using the MCKAY stapler as well as the TA stapler. The resulting mesenteric defect was closed with a 3-0 Vicryl suture. A stitch was placed at the base of the anastomosis of 3-0 silk. Attention was turned hemostasis, which was checked and attended to and was excellent. The abdomen was copiously irrigated with warm saline and was suctioned free. The fascia in the midline incision was closed with #1 PDS running suture. All incisions were closed with surgical clips. Dressings were applied. He tolerated the procedure without complication, and was transferred in stable condition to the PACU. All instrument, needle, and sponge counts were correct at the end of the case. My assistant service manager was necessary throughout the procedure for tissue retraction, possible camera operation, and closure of the wounds. I understand that section 1842(b)(7)(D) of the Social Security act generally prohibits Medicare physician fee schedule payment for the services of assistants at surgery in teaching hospitals when qualified residents are available to furnish such services. I certify that the services for which payment is claimed were medically necessary and that no qualified resident was available to perform the services. I further understand that these services are subject to postpayment review by the Medicare carrier. I attest to the content of the Intraoperative Record and any orders documented therein. Any exceptions are noted below.
[2021-07-26] MEDS: fentaNYL citrate 100 MCG/2 ML VIAL IV PRN ×4 (10:42→10:58)
[2021-07-26] MEDS: HYDROmorphone INJ 1 MG/ML SYRINGE IV PRN ×7 (11:00→11:42)
--- NOTE | 2021-07-26 11:54 | Anesthesiology Progress Note ---
Date of Service July 26, 2021 Anesthesia Post Procedure Vital Signs Vital Signs: Temp Pulse Pulse Resp BP Pulse Ox 07/26/21 11:25 94 H 10 L 126/79 96 07/26/21 11:15 95 H 15 114/83 96 07/26/21 11:05 99 H 16 124/93 95 07/26/21 10:55 96 H 9 L 144/93 H 96 07/26/21 10:45 97 H 12 150/100 H 94 07/26/21 10:35 36.8 C 88 16 131/83 95 07/26/21 05:43 36.7 C 88 20 102/65 94 Pain Intensity Abdomen: Pain Intensity: 6 Transfer of Care Handoff Completed per policy Notes Mental Status: alert / awake / arousable and participated in evaluation Patient Amnestic to Procedure: Yes Nausea / Vomiting: adequately controlled Pain: adequately controlled Airway Patency, RR, SpO2: stable & adequate BP & HR: stable & adequate Hydration State: stable & adequate Anesthetic Complications: no major complications apparent and Pt Satisfied with anesthetic care
[2021-07-26] MEDS ORDERED: MoRPHine SULFATE 2 MG/ML CARP IV PRN (12:17)
[2021-07-26] MEDS ORDERED: PROMETHAZINE HCL 12.5 MG in SODIUM CHLORIDE 0.9% 50 ML IV PRN (12:17)
[2021-07-26] MEDS ORDERED: diphenhydrAMINE Capsule 25 MG CAP PO PRN (12:17)
[2021-07-26] MEDS: SODIUM CHLORIDE 0.9% 1000ML 1,000 ML IV SCH (12:44)
[2021-07-26] MEDS: KETOROLAC 30 MG/ML VIAL IV SCH ×2 (14:23→17:53)
[2021-07-26] MEDS ORDERED: MoRPHine SULFATE 4 MG/ML 1 ML CARP\\VIAL IV PRN (14:27)
[2021-07-26] MEDS: oxyCODONE/ACETAMINOPHEN 5mg/325mg TAB PO PRN (21:22)
[2021-07-26] MEDS: ACETAMINOPHEN 1000 MG/100 ML IV IV SCH (21:22)
[2021-07-27] MEDS: KETOROLAC 30 MG/ML VIAL IV SCH ×4 (00:31→17:29)
[2021-07-27] MEDS: SODIUM CHLORIDE 0.9% 1000ML 1,000 ML IV SCH ×2 (00:31→11:48)
[2021-07-27] MEDS: oxyCODONE/ACETAMINOPHEN 5mg/325mg TAB PO PRN ×2 (03:22→09:37)
[2021-07-27] MEDS: ACETAMINOPHEN 1000 MG/100 ML IV IV SCH ×3 (06:35→22:16)
[2021-07-27 07:58] LABS: Eosinophils # (auto) 0.01 K/uL (0-0.5); Eosinophils % (auto) 0.1 %; Hemoglobin 13.1 g/dL (14.0-18.0); Immature Granulocytes # (auto) 0.02 K/uL (0.00-0.02); Immature Granulocytes % (auto) 0.1 %; Lymphocytes % (auto) 10.3 %; Mean Corpuscular Hemoglobin 30.8 pg (25-34); Mean Corpuscular Hgb Conc 34.5 g/dL (32-36); Mean Corpuscular Volume 89.4 fL (80-100); Mean Platelet Volume 9.5 fL (7.4-10.4); Monocytes # (auto) 1.18 K/uL (0.11-0.59); Monocytes % (auto) 8.7 %; Neutrophils # (auto) 10.92 K/uL (1.4-6.5); Neutrophils % (auto) 80.8 %; Platelet Count 267 K/uL (130-400); RDW Coefficient of Variation 13.4 % (11.5-14.5); RDW Standard Deviation 43.7 fL (36.4-46.3); Red Blood Count 4.25 M/uL (4.7-6.1); White Blood Count 13.53 K/uL (4.8-10.8)
[2021-07-27 08:42] LABS: Albumin Globulin Ratio 1.3 (0.9-2); Albumin Level 3.5 gm/dl (3.4-5.0); BUN Creatinine Ratio 21.3 (10-20); Bilirubin,Total 0.9 mg/dl (0.2-1.0); Calcium 7.7 mg/dl (8.5-10.1); Creatinine Clr Calc Pharmacy 66.4 ml/min; Est GFR (African American) 52.9 ml/min; Est GFR (Non-African American) 45.6 ml/min; Globulin 2.7 gm/dl (2.5-4.0); Potassium 4.2 mmol/L (3.5-5.1); Total Protein 6.2 gm/dl (6.0-8.3)
--- NOTE | 2021-07-27 14:08 | Surgery Progress Note ---
Date of Service July 27, 2021 Assessment & Plan (1) Colon cancer: Plan: 65-year-old gentleman postop day 1 status post laparoscopic right hemicolectomy; doing very well Continue clear liquid diet; awaiting flatus Out of bed/ambulation, incentive spirometry for pulmonary toilet We will recheck labs in the morning Admission and Anticipated Discharge Date Admission Date: July 26, 2021 Subjective Postoperative day 1 status post laparoscopic assisted right hemicolectomy. He is doing well. He is tolerating a clear diet. He denies nausea or vomiting. He denies fevers or chills. He has not passed any flatus. Physical Exam Constitutional: WD/WN, vitals as above Neck: trachea midline, no thyromegaly Gastrointestinal (Abdomen): Inspection/Auscultation: abdomen normal to i nspection Percussion/Palpation: + abdomen tender (Mild diffuse) and abdomen soft; no guarding and abdomen not rigid Dressing clean/dry/intact Musculoskeletal: Extremities: no cyanosis and no clubbing Skin: no rashes, warm and dry Psychiatric: A+Ox3, euthymic affect Results & Data ([facility]) Vital Signs (Past 12 Hours) Vital Signs Temp Pulse Resp BP Pulse Ox Pulse Ox 07/27/21 12:28 95 07/27/21 11:53 93 07/27/21 11:22 36.7 C 73 16 120/77 96 07/27/21 07:30 36.6 C 64 16 116/69 97 07/27/21 03:15 36.4 C L 74 18 110/64 97 Laboratory Results 07/27/21 07/27/21 Range/Units 06:53 06:53 WBC 13.53 H (4.8-10.8) K/uL RBC 4.25 L (4.7-6.1) M/uL Hgb 13.1 L (14.0-18.0) g/dL Hct 38.0 L (42-52) % MCV 89.4 (80-100) fL MCH 30.8 (25-34) pg MCHC 34.5 (32-36) g/dL RDW Std Deviation 43.7 (36.4-46.3) fL RDW Coeff of Donny 13.4 (11.5-14.5) % Plt Count 267 (130-400) K/uL MPV 9.5 (7.4-10.4) fL Immature Gran % (Auto) 0.1 % Neut % (Auto) 80.8 % Lymph % (Auto) 10.3 % [place] % (Auto) 8.7 % Eos % (Auto) 0.1 % Baso % (Auto) 0.0 % Neut # (Auto) 10.92 H (1.4-6.5) K/uL Lymph # (Auto) 1.40 (1.2-3.4) K/uL [place] # (Auto) 1.18 H (0.11-0.59) K/uL Eos # (Auto) 0.01 (0-0.5) K/uL Baso # (Auto) 0.00 (0-0.2) K/uL Immature Gran # (Auto) 0.02 (0.00-0.02) K/uL Sodium 130 L (136-145) mmol/L Potassium 4.2 (3.5-5.1) mmol/L Chloride 99 (98-107) mmol/L Carbon Dioxide 24 (21-32) mmol/L Anion Gap 7 (3-11) BUN 33 H (6-23) mg/dl Creatinine 1.55 H (0.6-1.4) mg/dl Est Cr Clr Drug Dosing 66.4 ml/min Est GFR ( Amer) 52.9 ml/min Est GFR (Non-Af Amer) 45.6 ml/min BUN/Creatinine Ratio 21.3 H (10-20) Glucose 102 H (70-99(Fasting)) mg/dl Calcium 7.7 L (8.5-10.1) mg/dl Total Bilirubin 0.9 (0.2-1.0) mg/dl AST 16 (13-39) U/L ALT 23 (7-52) U/L Alkaline Phosphatase 37 (34-104) U/L Total Protein 6.2 (6.0-8.3) gm/dl Albumin 3.5 (3.4-5.0) gm/dl Globulin 2.7 (2.5-4.0) gm/dl Albumin/Globulin Ratio 1.3 (0.9-2)
[2021-07-28] MEDS: SODIUM CHLORIDE 0.9% 1000ML 1,000 ML IV SCH ×2 (00:27→12:28)
[2021-07-28] MEDS: KETOROLAC 30 MG/ML VIAL IV SCH ×4 (00:27→18:03)
[2021-07-28] MEDS: oxyCODONE/ACETAMINOPHEN 5mg/325mg TAB PO PRN ×2 (04:21→10:33)
[2021-07-28 06:06] LABS: Basophils # (auto) 0.01 K/uL (0-0.2); Basophils % (auto) 0.1 %; Eosinophils # (auto) 0.09 K/uL (0-0.5); Eosinophils % (auto) 0.8 %; Hematocrit (blood only) 38.3 % (42-52); Hemoglobin 12.9 g/dL (14.0-18.0); Immature Granulocytes # (auto) 0.02 K/uL (0.00-0.02); Immature Granulocytes % (auto) 0.2 %; Lymphocytes # (auto) 2.09 K/uL (1.2-3.4); Lymphocytes % (auto) 17.7 %; Mean Corpuscular Hemoglobin 29.9 pg (25-34); Mean Corpuscular Hgb Conc 33.7 g/dL (32-36); Mean Corpuscular Volume 88.9 fL (80-100); Mean Platelet Volume 9.2 fL (7.4-10.4); Monocytes # (auto) 0.98 K/uL (0.11-0.59); Monocytes % (auto) 8.3 %; Neutrophils # (auto) 8.62 K/uL (1.4-6.5); Neutrophils % (auto) 72.9 %; Platelet Count 262 K/uL (130-400); RDW Coefficient of Variation 13.6 % (11.5-14.5); RDW Standard Deviation 44.7 fL (36.4-46.3); Red Blood Count 4.31 M/uL (4.7-6.1); White Blood Count 11.81 K/uL (4.8-10.8)
[2021-07-28] MEDS: ACETAMINOPHEN 1000 MG/100 ML IV IV SCH ×3 (06:17→22:16)
[2021-07-28 06:24] LABS: Albumin Globulin Ratio 1.2 (0.9-2); Albumin Level 3.5 gm/dl (3.4-5.0); BUN Creatinine Ratio 21.3 (10-20); Bilirubin,Total 0.9 mg/dl (0.2-1.0); Calcium 7.6 mg/dl (8.5-10.1); Creatinine Clr Calc Pharmacy 75.6 ml/min; Est GFR (Non-African American) 53.5 ml/min; Globulin 2.9 gm/dl (2.5-4.0); Potassium 3.7 mmol/L (3.5-5.1); Total Protein 6.4 gm/dl (6.0-8.3)
--- NOTE | 2021-07-28 08:57 | Surgery Progress Note ---
Date of Service July 28, 2021 Assessment & Plan (1) Colon cancer: Plan: 65-year-old gentleman postop day 2 status post laparoscopic right hemicolectomy; doing very well Continue clear liquid diet; awaiting flatus even with a small bowel movement Out of bed/ambulation, incentive spirometry for pulmonary toilet Discontinue Da Silva catheter Continue IV Tylenol and p.o. Percocet as needed for pain Will reevaluate this afternoon for possible diet advancement if starts to pass flatus Discussed with Dr. Harris who agrees with above plan evaluate patient later today. Admission and Anticipated Discharge Date Admission Date: July 26, 2021 Subjective States he had a small bowel movement this morning however not passing any gas Still feeling slightly bloated Pain controlled took Percocet this morning Da Silva catheter still in place Using incentive spirometer no chest pain or shortness of breath Tolerating clear liquids Physical Exam Constitutional: WD/WN, vitals as above + obese; no acute distress and not ill appearing Neck: normal visual inspection and trachea midline Respiratory: normal respiratory effort; no respiratory distress, no labored breathing and no retractions Gastrointestinal (Abdomen): Inspection/Auscultation: abdomen normal to inspection, + abdominal surgical incision (Clean, dry, intact with nikki some dried blood at the umbilicus) and + hypoactive bowel sounds; abdomen not distended Percussion/Palpation: + abdomen tender (Upper incisional area) and abdomen soft; no guarding and abdomen not rigid Skin: no rashes, warm and dry Psychiatric: A+Ox3, euthymic affect Results & Data ([facility]) Vital Signs (Past 12 Hours) Vital Signs Temp Pulse Resp BP BP Pulse Ox 07/28/21 07:22 36.7 C 70 20 117/67 93 07/27/21 22:18 36.9 C 74 20 108/64 93 Laboratory Results 07/28/21 07/28/21 Range/Units 05:22 05:22 WBC 11.81 H (4.8-10.8) K/uL RBC 4.31 L (4.7-6.1) M/uL Hgb 12.9 L (14.0-18.0) g/dL Hct 38.3 L (42-52) % MCV 88.9 (80-100) fL MCH 29.9 (25-34) pg MCHC 33.7 (32-36) g/dL RDW Std Deviation 44.7 (36.4-46.3) fL RDW Coeff of Donny 13.6 (11.5-14.5) % Plt Count 262 (130-400) K/uL MPV 9.2 (7.4-10.4) fL Immature Gran % (Auto) 0.2 % Neut % (Auto) 72.9 % Lymph % (Auto) 17.7 % [place] % (Auto) 8.3 % Eos % (Auto) 0.8 % Baso % (Auto) 0.1 % Neut # (Auto) 8.62 H (1.4-6.5) K/uL Lymph # (Auto) 2.09 (1.2-3.4) K/uL [place] # (Auto) 0.98 H (0.11-0.59) K/uL Eos # (Auto) 0.09 (0-0.5) K/uL Baso # (Auto) 0.01 (0-0.2) K/uL Immature Gran # (Auto) 0.02 (0.00-0.02) K/uL Sodium 135 L (136-145) mmol/L Potassium 3.7 (3.5-5.1) mmol/L Chloride 105 (98-107) mmol/L Carbon Dioxide 23 (21-32) mmol/L Anion Gap 7 (3-11) BUN 29 H (6-23) mg/dl Creatinine 1.36 (0.6-1.4) mg/dl Est Cr Clr Drug Dosing 75.6 ml/min Est GFR ( Amer) 62.0 ml/min Est GFR (Non-Af Amer) 53.5 ml/min BUN/Creatinine Ratio 21.3 H (10-20) Glucose 89 (70-99(Fasting)) mg/dl Calcium 7.6 L (8.5-10.1) mg/dl Total Bilirubin 0.9 (0.2-1.0) mg/dl AST 13 (13-39) U/L ALT 20 (7-52) U/L Alkaline Phosphatase 39 (34-104) U/L Total Protein 6.4 (6.0-8.3) gm/dl Albumin 3.5 (3.4-5.0) gm/dl Globulin 2.9 (2.5-4.0) gm/dl Albumin/Globulin Ratio 1.2 (0.9-2)
[2021-07-29] MEDS: KETOROLAC 30 MG/ML VIAL IV SCH ×5 (00:11→23:23)
[2021-07-29] MEDS: SODIUM CHLORIDE 0.9% 1000ML 1,000 ML IV SCH ×2 (01:46→17:51)
[2021-07-29] MEDS: oxyCODONE/ACETAMINOPHEN 5mg/325mg TAB PO PRN ×4 (05:53→22:33)
[2021-07-29] MEDS: ACETAMINOPHEN 1000 MG/100 ML IV IV SCH ×2 (05:54→14:37)
[2021-07-29 08:43] LABS: Basophils # (auto) 0.02 K/uL (0-0.2); Basophils % (auto) 0.2 %; Eosinophils # (auto) 0.15 K/uL (0-0.5); Eosinophils % (auto) 1.4 %; Hematocrit (blood only) 37.5 % (42-52); Hemoglobin 12.6 g/dL (14.0-18.0); Immature Granulocytes # (auto) 0.03 K/uL (0.00-0.02); Immature Granulocytes % (auto) 0.3 %; Lymphocytes # (auto) 1.48 K/uL (1.2-3.4); Lymphocytes % (auto) 14.3 %; Mean Corpuscular Hemoglobin 30.1 pg (25-34); Mean Corpuscular Hgb Conc 33.6 g/dL (32-36); Mean Corpuscular Volume 89.5 fL (80-100); Mean Platelet Volume 8.9 fL (7.4-10.4); Monocytes # (auto) 0.56 K/uL (0.11-0.59); Monocytes % (auto) 5.4 %; Neutrophils # (auto) 8.12 K/uL (1.4-6.5); Neutrophils % (auto) 78.4 %; Platelet Count 243 K/uL (130-400); RDW Coefficient of Variation 13.7 % (11.5-14.5); RDW Standard Deviation 44.9 fL (36.4-46.3); Red Blood Count 4.19 M/uL (4.7-6.1); White Blood Count 10.36 K/uL (4.8-10.8)
[2021-07-29 09:07] LABS: Albumin Globulin Ratio 1.2 (0.9-2); Albumin Level 3.3 gm/dl (3.4-5.0); BUN Creatinine Ratio 20.2 (10-20); Bilirubin,Total 0.8 mg/dl (0.2-1.0); Calcium 7.6 mg/dl (8.5-10.1); Creatinine Clr Calc Pharmacy 98.9 ml/min; Est GFR (African American) 85.7 ml/min; Est GFR (Non-African American) 73.9 ml/min; Globulin 2.7 gm/dl (2.5-4.0); Potassium 3.9 mmol/L (3.5-5.1)
--- NOTE | 2021-07-29 09:58 | Surgery Progress Note ---
Date of Service July 29, 2021 Assessment & Plan (1) Colon cancer: Plan: 65-year-old gentleman postop day 3 status post laparoscopic right hemicolectomy; doing very well Advance to full liquids for lunch, go slowly Out of bed/ambulation, incentive spirometry for pulmonary toilet IV fluids to 50 cc/hr Continue IV Tylenol and p.o. Percocet as needed for pain Discussed with Dr. Harris who agrees with above plan evaluate patient later today. Admission and Anticipated Discharge Date Admission Date: July 26, 2021 Subjective feeling okay was able to sleep last night no n,v passing gas now, liquid bm as well tolearted clear liquids no chest pain/sob incisional soreness, no increase in pain Physical Exam Constitutional: WD/WN, vitals as above no acute distress and not ill appearing Respiratory: normal respiratory effort; no respiratory distress Gastrointestinal (Abdomen): Inspection/Auscultation: abdomen normal to inspection, + abdominal surgical incision (clean,dry, intact with nikki) and + hypoactive bowel sounds; abdomen not distended Percussion/Palpation: + abdomen tender (at midline incision and Right abdomen) and abdomen soft; no guarding and abdomen not rigid laparoscopic incisions covered with clean dry dressings Skin: no rashes, warm and dry Psychiatric: A+Ox3, euthymic affect Results & Data ([facility]) Vital Signs (Past 12 Hours) Vital Signs Temp Pulse Resp BP Pulse Ox 07/29/21 08:17 36.7 C 74 16 113/72 92 07/28/21 22:34 36.4 C L 80 18 112/62 92
[2021-07-30] MEDS: oxyCODONE/ACETAMINOPHEN 5mg/325mg TAB PO PRN ×2 (02:56→13:03)
[2021-07-30] MEDS: KETOROLAC 30 MG/ML VIAL IV SCH ×2 (05:54→11:59)
--- NOTE | 2021-07-30 08:45 | Surgery Progress Note ---
Date of Service July 30, 2021 Assessment & Plan (1) Colon cancer: Plan: 65-year-old gentleman postop day 4 status post laparoscopic right hemicolectomy; doing very well Advance to regular diet Out of bed/ambulation, incentive spirometry for pulmonary toilet d/c iv fluids Continue IV Tylenol and p.o. Percocet as needed for pain probable discharge to home later today Admission and Anticipated Discharge Date Admission Date: July 26, 2021 Subjective doing well this am. continues to pass flatus. pain controlled. no fevers/chills/nausea/vomiting Physical Exam Constitutional: WD/WN, vitals as above no acute distress and not ill appearing Respiratory: normal respiratory effort; no respiratory distress Gastrointestinal (Abdomen): Inspection/Auscultation: abdomen normal to inspection and + abdominal surgical incision (clean,dry, intact with nikki); abdomen not distended Percussion/Palpation: + abdomen tender (at midline incision and Right abdomen) and abdomen soft; no guarding and abdomen not rigid Skin: no rashes, warm and dry Psychiatric: A+Ox3, euthymic affect Results & Data ([facility]) Vital Signs (Past 12 Hours) Vital Signs Temp Pulse Resp BP Pulse Ox 07/30/21 07:15 36.8 C 98 H 18 116/66 92 07/29/21 22:34 37.1 C 99 H 22 150/79 H 93
--- NOTE | 2021-08-02 09:54 | Discharge Summary ---
Date of Service August 02, 2021 Admission HPI Per Admitting Provider [facility] laparoscopic assisted right hemicolectomy for intramucosal tumor found on colonoscopy and biopsy. Principal Diagnosis Right colon mass Discharge Data Allergies Allergy/AdvReac Type Severity Reaction Status Date / Time No Known Allergies Allergy Verified 07/26/21 05:40 Procedures Performed Operation Date: 07/26/21 07:15 Actual Procedures p Laparoscopic assisted Right Hemicolectomy(Right) - Bertin Harris MD Hospital Course (1) Colon cancer: Patient was taken to the operating room for laparoscopic assisted right hemicolectomy. Patient tolerated procedure well and was transferred to recovery then to medical/surgical floor for postop care. His diet was advanced to clear liquids, encouraged OOB to chair, incentive spirometry, IV Morphine with PO Percocet as needed for pain, IV Zofran, SCDs and Lovenox for DVT prophylaxis. POD # 1 patient still had not passed flatus. Clear liquids were continued. Diet was slowly advanced to reg diet by POD # 4. Pain was controlled with oral pain medications. Bowel fuction returned on POD # 2. Patient ambulated without need for PT/OT during his stay. He was discharged home on POD # 4 in stable condition. Total Time Total Time Spent Total Time Spent (In Minutes): 30 minutes Discharge Plan Discharge Items Patient Disposition: Home - Self-Care Reason For Visit: Malignant Neoplasm of Ascending Colon Discharge Diagnosis: Malignant neoplasm of ascending Colon Activity: Per Instructions section Non-emergency contact: Primary Care Provider and Surgeon Call non-emergency contact if: you have any medication questions, your pain is not controlled, your pain is worsening, you have a fever, your temperature is above 101, your wound has increased redness, your wound has increased drainage and your wound pain has increased Follow-up/Referrals: Bertin Harris MD [Physician] - 08/11/21 1:45 pm (follow-up with Dr. Harris in 1 week for staple removal and follow-up ) Caroline Park PA-C [Primary Care Provider] - Diet: Low Fiber Addtl Attending Provider Instructions: Post-Surgical ~Discharge Instructions Activity Recommendations: - lifting limitation: (10 pounds for 6 weeks), - exercise/sex/sports limit: (nonstrenuous for 6 weeks), - driving or machine use limit: (none for 1 week or until pain free and no longer taking narcotic pain medication), - Shower/bathe limit: (may shower , do not submerge incision underwater for 2 weeks) Diet: - Low fiber diet for 2 weeks SPECIAL CARE INSTRUCTIONS: - May shower. Let water run over area and pat dry. - Surgical nikki will be remove in office. - Wear abdominal binder for support daily - Call the surgeon's office with any questions or concerns - - (ex. temperature higher than 101 degrees F, excessive bleeding or pain). MEDICATIONS: - Resume previous medications unless instructed otherwise by your surgeon. - May alternate extra strength Tylenol and Ibuprofen as needed for mild to moderate pain -650 mg Tylenol every 6 hours as needed - Ibuprofen 600 mg every 6 hours as needed (take with food) - Percocet 1 every 4 hours, as needed for moderate to severe pain FOLLOW UP VISIT: - If not already scheduled, please call the office to schedule a one week follow-up appointment. Office number Pending Studies at Discharge: Yes (surgical pathology) Stand-Alone Forms: [facility], Smoking Cessation Medications and DC Order Prescriptions: New hydrocodone-acetaminophen 5-325 mg tablet 1 tab PO Q4H PRN (Reason: pain) Qty: 18 RF: 0 Continued benazepril-hydrochlorothiazide 20-25 mg Tablet 1 tab PO QAM RF: 0 Discontinued hydrocodone-acetaminophen 5-325 mg Tablet 1 tab PO BID PRN (Reason: Pain) RF: 0 Discharge Orders: Discharge Order (Routine); Ordered 07/30/21 Ordered By: Dimple Decker/Other Patient Handouts: Low-Fiber Diet Admission Data Admit Date/Time: 07/26/21 10:53 Attending Provider: Bertin Harris Admit Provider: Bertin Harris Primary Care Provider: Caroline Park Other Interventions: Discharge Summary Assessment (RN) Last Done: 07/30/21 13:38
== END 2021-07-30 15:15 | disposition home or self-care (01) | DRG 331 ==
LOC: ASU 05:19 → 3N 10:53

== ENCOUNTER 2021-08-06 10:24 | Inpatient (IN) ==
[2021-08-06] MEDS ORDERED: ONDANSETRON INJ 2 MG/ML 2 ML VIAL IV STA (10:51)
[2021-08-06] MEDS ORDERED: fentaNYL citrate 100 MCG/2 ML VIAL IV STA ×2 (10:51→13:02)
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
[2021-08-06 11:11] LABS: Basophils # (auto) 0.02 K/uL (0-0.2); Basophils % (auto) 0.1 %; Eosinophils # (auto) 0.67 K/uL (0-0.5); Eosinophils % (auto) 4.2 %; Hematocrit (blood only) 35.2 % (42-52); Hemoglobin 11.6 g/dL (14.0-18.0); Immature Granulocytes # (auto) 0.12 K/uL (0.00-0.02); Immature Granulocytes % (auto) 0.8 %; Lymphocytes # (auto) 1.89 K/uL (1.2-3.4); Lymphocytes % (auto) 11.8 %; Mean Corpuscular Hemoglobin 29.3 pg (25-34); Mean Corpuscular Volume 88.9 fL (80-100); Mean Platelet Volume 8.8 fL (7.4-10.4); Monocytes # (auto) 1.03 K/uL (0.11-0.59); Monocytes % (auto) 6.4 %; Neutrophils # (auto) 12.27 K/uL (1.4-6.5); Neutrophils % (auto) 76.7 %; Platelet Count 543 K/uL (130-400); RDW Coefficient of Variation 14.3 % (11.5-14.5); RDW Standard Deviation 46.6 fL (36.4-46.3); Red Blood Count 3.96 M/uL (4.7-6.1)
[2021-08-06 11:22] LABS: Albumin Globulin Ratio 0.8 (0.9-2); Albumin Level 3.1 gm/dl (3.4-5.0); BUN Creatinine Ratio 25.3 (10-20); Bilirubin,Total 0.8 mg/dl (0.2-1.0); Calcium 8.8 mg/dl (8.5-10.1); Creatinine Clr Calc Pharmacy 107.8 ml/min; Est GFR (African American) 103.5 ml/min; Est GFR (Non-African American) 89.3 ml/min; Globulin 3.7 gm/dl (2.5-4.0); INR 1.1 (0.9-1.1); Partial Thromboplastin Time 28.6 Seconds (21.0-31.0); Potassium 3.8 mmol/L (3.5-5.1); Prothrombin Time 11.5 Seconds (9.0-12.0); Total Protein 6.8 gm/dl (6.0-8.3)
--- NOTE | 2021-08-06 11:33 | XRay Report ---
XR chest 1V portable CLINICAL HISTORY: Atypical chest pain. COMPARISON STUDY: No previous studies for comparison. FINDINGS: Lucency under the right hemidiaphragm is highly suggestive of pneumoperitoneum. Linear biba silar opacities reflect atelectasis. There is no evidence for pulmonary edema. No pneumothorax or ple ural effusion is noted. Borderline cardiomegaly is noted. IMPRESSION: Lucency under the right hemidiaphragm highly suggestive of pneumoperitoneum. Although t his could be postsurgical, a bowel perforation cannot be excluded. Findings discussed with Dr. Arvind land time of dictation. ACT 112: Negative or not required by law. Electronically signed by: Luis Ruffin M.D. 08/06/2021 11:31 AM
[2021-08-06] MEDS ORDERED: OPTIRAY 320 125ml IV ONE (11:48)
[2021-08-06] MEDS ORDERED: PIPERACILLIN/TAZOBACTAM 4.5 GM/120 ML BAG IV ONE (12:08)
--- NOTE | 2021-08-06 12:14 | CT Scan Report ---
CT abd pelvis IV con only CLINICAL HISTORY: pneumoperitoneum eval for anastomatic leak COMPARISON STUDY: 04/23/2016 and chest radiograph from 08/06/2021 CT DOSE: TECHNIQUE: Standard CT of the Abdomen and Pelvis was performed with IV contrast. A dose lowering vijaya hnique was utilized adhering to the principles of ALARA. Contrast Volume: Optiray 320, 119 ml. The patient did not receive oral contrast. FINDINGS: Abdominal cavity and bowel: As suspected radiographically, there is extensive free intraperitoneal ai r which is present predominantly anteriorly. The patient appears to be status post previous hemicolec qian with end-to-end anastomosis. At the site of anastomosis, there is an abnormal fluid collection w ith air present within it most characteristic of an abscess. This extends along the right paracolic g utter. It measures approximately 14 x 3 cm in AP and transverse diameters. Additional abdominal and p elvic ascites is seen particularly along the left paracolic gutter. The remaining bowel loops are normally placed within the abdomen and pelvis without evidence for dila tation or obstruction. Liver: There is homogeneous attenuation of the liver parenchyma. There is no evidence for enhancing m ass lesion. Fluid extends over the dome of the liver as well. Spleen: There is homogeneous attenuation of the splenic parenchyma. There is no enhancing mass lesion . Pancreas: There is homogeneous attenuation of the pancreatic parenchyma. There is no evidence for mas s lesion or peripancreatic fluid collection. Gall Bladder: Surgical clips are present. Adrenal glands: The adrenal glands are normal in size and attenuation. There is no evidence for enhan cing mass lesion. Kidneys: There is homogeneous attenuation of the renal parenchyma bilaterally. There is no evidence f or renal calculus or hydronephrosis. There is no evidence for enhancing mass. Bladder: The bladder is mildly distended with no evidence for focal mass, calculus or diverticulum. T here is air present within the bladder most likely from previous instrumentation. : There is no evidence for pelvic mass or adenopathy. There is no evidence for pelvic ascites. Vasculature: There is no evidence for aneurysmal dilatation of the abdominal aorta. There is evidence for thrombus within the superior mesenteric vein is best seen on image 219. Osseous structures: There is no acute osseous pathology. IMPRESSION: 1. CT findings most characteristic of an anastomotic leak with an abscess seen along the right paraco lic gutter. 2. There is also extensive free air as seen radiographically. 3. There is mild to moderate ascites present with fluid over the dome of the liver and extending down both paracolic gutters and into the pelvis. 4. Thrombus within the superior mesenteric vein. ACT 112: Negative or not required by law. Electronically signed by: Compa Grajeda M.D. 08/06/2021 12:12 PM
--- NOTE | 2021-08-06 12:16 | CT Scan Report ---
CT ANGIOGRAPHY OF THE CHEST, PULMONARY EMBOLUS PROTOCOL CLINICAL HISTORY: Left-sided chest pain. Evaluate for pulmonary embolus. COMPARISON STUDY: Chest radiograph performed earlier today. TECHNIQUE: Following IV administration of 119 mL of Optiray, helical axial images of the chest were o btained utilizing the pulmonary embolus protocol. Maximal intensity projections and sagittal and cor onal reformats were viewed on an independent 3D workstation. IV contrast was administered without co mplication. Automated exposure control was utilized for the study. A dose lowering technique was ut ilized adhering to the principles of ALARA. CT DOSE: 1695.63 mGycm FINDINGS: Note is made of a small embolus within a segmental branch to the anterior segment of the r ight upper lobe shown on axial image 145 of 246. No additional pulmonary emboli are identified althou gh the lower lobe pulmonary arteries are suboptimally opacified. There is mild dilatation of the cent ral pulmonary arteries. Mild cardiomegaly is noted. There is no pericardial effusion. Bilateral lower lung opacities favor atelectasis. No pneumothorax or pleural effusion is noted. A 2.4 cm subcutaneou s lesion of the left back statistically reflects a sebaceous cyst. The abdomen and pelvis CT will be reported separately. Pneumoperitoneum and upper abdominal ascites is noted. IMPRESSION: 1. Small pulmonary embolus within a segmental branch of the right upper lobe. No additional pulmonary emboli identified although lower lobe pulmonary arteries suboptimally opacified. 2. Pneumoperitoneum and upper abdominal ascites. These findings are better depicted on the CT of the abdomen and pelvis which will be reported separately. Given surgery on July 26, 2021, the pneumoperit oneum is suspicious for perforation/anastomotic leak. 3. Mild cardiomegaly. Mild dilatation of the central pulmonary arteries. 4. Bilateral lower lung opacities which favor atelectasis. ACT 112: Negative or not required by law. Electronically signed by: Luis Ruffin M.D. 08/06/2021 12:15 PM
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
--- NOTE | 2021-08-06 12:53 | Electrocardiogram Report ---
Test Reason : Blood Pressure : / mmHG Vent. Rate : 093 BPM Atrial Rate : 093 BPM P-R Int : 172 ms QRS Dur : 102 ms QT Int : 372 ms P-R-T Axes : 029 003 017 degrees QTc Int : 462 ms Poor data quality, interpretation may be adversely affected Sinus rhythm with occasional Premature ventricular complexes Low voltage QRS Septal infarct (cited on or before 06-AUG-2021) Abnormal ECG When compared with ECG of 06-AUG-2021 10:52, (unconfirmed) Premature ventricular complexes are now Present Confirmed by David Carrasco ([id number]) on 08/06/2021 12:53:39 PM Referred By: Caroline Park Confirmed By:David Carrasco
--- NOTE | 2021-08-06 12:54 | Electrocardiogram Report ---
Test Reason : Blood Pressure : / mmHG Vent. Rate : 088 BPM Atrial Rate : 088 BPM P-R Int : 186 ms QRS Dur : 102 ms QT Int : 368 ms P-R-T Axes : 033 000 014 degrees QTc Int : 445 ms Sinus rhythm with Premature atrial complexes Low voltage QRS Septal infarct (cited on or before 06-AUG-2021) Abnormal ECG When compared with ECG of 06-AUG-2021 10:53, (unconfirmed) Premature atrial complexes are now Present Confirmed by David Carrasco ([id number]) on 08/06/2021 12:54:08 PM Referred By: Caroline Park Confirmed By:David Carrasco
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
[2021-08-06] MEDS ORDERED: PROPOFOL IV EMULSION 10 MG/ML 20 ML VIAL IV ONE (13:56)
[2021-08-06] MEDS ORDERED: LIDOCAINE 2% 2 ML VIAL/AMP(20MG/ML) INFIL ONE (13:57)
[2021-08-06] MEDS ORDERED: ROCURONIUM BROMIDE 10 MG/ML 5 ML VIAL IV ONE ×7 (13:59→16:35)
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
--- NOTE | 2021-08-06 14:18 | Ultrasound Report ---
US venous doppler LE BI CLINICAL HISTORY: swelling s/p colectomy eval for dvt TECHNIQUE: Left lower extremity real-time compression venous ultrasound with Color Doppler imaging. U tilizing real-time ultrasonic imaging multiple real time high-resolution ultrasonic images with compr ession and noncompression maneuvers of the deep venous system in addition to color doppler imaging we re performed from the common femoral vein through the proximal calf veins. COMPARISON: None available at the time of this dictation. FINDINGS: There is a nonobstructive thrombus in the left popliteal vein measuring approximately 25 x 5 mm. Impression: Nonobstructive left popliteal vein thrombus. ACT 112: Negative or not required by law. Electronically signed by: Liban Jaimes M.D. 08/06/2021 2:16 PM
[2021-08-06] MEDS ORDERED: MIDAZOLAM HCL 1 MG/ML 2ML VIAL ONE (14:19)
[2021-08-06] MEDS ORDERED: EPINEPHrine INJ 1 MG/ML AMP ONE (14:20)
[2021-08-06] MEDS ORDERED: fentaNYL citrate 100 MCG/2 ML VIAL ONE ×2 (14:20→15:15)
[2021-08-06] MEDS ORDERED: BUPIVACAINE 0.5 % 5 MG/1 ML MPF 30ML VIAL ONE (14:21)
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
[2021-08-06] MEDS ORDERED: SUCCINYLCHOLINE CHLORIDE 20 MG/ML 10 ML VIAL IV ONE (15:17)
[2021-08-06] MEDS ORDERED: PHENYLEPHRINE HCL 10 MG/ML VIAL ONE (15:57)
[2021-08-06] MEDS ORDERED: SURGICEL ABSORB HEMOSTAT 2IN X 14IN TOP ONE (16:08)
[2021-08-06] MEDS ORDERED: GELATIN SPONGE SZ 100 ONE (16:23)
[2021-08-06] MEDS ORDERED: NEOSTIGMINE METHYLSULFATE 1 MG/ML 10ML VIAL ONE (16:41)
[2021-08-06] MEDS ORDERED: GLYCOPYRROLATE 0.2 MG/ML VIAL ONE (16:41)
--- NOTE | 2021-08-06 17:16 | Post Operative Brief Note ---
Immediate Post Op Note v1 Date of Surgery August 06, 2021 Pre & Post Diagnosis Operation Date: 08/06/21 14:50 Pre-Op Diagnosis: Anastomotic leak of intestine Post-Op Diagnosis: Anastomotic leak of intestine I identified the patient and participated in the time-out.: Yes Procedure Operation Date: 08/06/21 14:50 Actual Procedures p Exploratory Laparotomy, Colon Resection with Ostomy Placement(Not Applicable) - Bertin Harris MD Surgeon Bertin Harris MD Dress Cap Maker Dr. Cruz assisted with tissue retraction, dissection, closure Estimated Blood Loss 500 Findings Consistent with Post-Op Diagnosis Anastomotic leak with fairly well-developed abscess containing feculent and purulent material. Drains Da Silva Catheter, Roberto-Zepeda Drain and Mitra Drain
--- NOTE | 2021-08-06 17:23 | Operative Report ---
Post Operative Report Pre & Post Diagnosis Operation Date: 08/06/21 14:50 Pre-Op Diagnosis: Anastomotic leak of intestine Post-Op Diagnosis: Anastomotic leak of intestine I identified the patient and participated in the time-out.: Yes Procedure Operation Date: 08/06/21 14:50 Actual Procedures p Exploratory Laparotomy, Colon Resection with Ostomy Placement(Not Applicable) - Bertin Harris MD Surgeon Bertin Harris MD [employer] Manager Dr. Cruz assisted with tissue retraction, dissection, closure Estimated Blood Loss 500 Findings Consistent with Post-Op Diagnosis Anastomotic leak with well-developed abscess containing feculent purulent material. Specimens Anastomosis containing terminal ileum and segment of transverse colon Drains 19 Georgian round SNEHAL drain Anesthesia Type General Complications No immediate complications Description of Procedure Patient was taken to the operating room, placed supine on the operating table. A timeout was performed, perioperative antibiotics were administered, SCD boots were placed. After adequate anesthesia and analgesia was obtained, a Da Silva catheter was placed, and the area was prepped and draped in the normal sterile fashion. The midline incision was reentered dissection was carried down to the fascia. The fascial stitches were cut and the abdomen was entered. Significant amount of murky fluid was encountered. This was suctioned free from the abdomen and from the pelvic sidewall. Adhesions were taken down bluntly. The adhesions were quite dense and difficult to dissect free, and this took a significant amount of time. Over to the right pelvic sidewall, I was able to enter the abscess cavity. Feculent and purulent material was suctioned free. Slowly we are able to dissect free the anastomosis. Up into the incision. MCKAY stapler was used to resect the anastomosis. The mesentery was taken down with the LigaSure device. A retroperitoneal bleeder was controlled with suture ligature. The anastomosis was sent off field for specimen. At this point bleeding was checked and attended to with combination of suture ligation, Surgicel, Gelfoam. A site was selected for the ileostomy as well as the mucous fistula. Incision was made on the abdominal wall for the site of the ostomy and was carried down to the fascia. The fascia was incised, and the ileum was brought up into the incision. The same was done in the site of the mucous fistula. Prior to bringing the mucous fistula up, 19 Georgian round SNEHAL drain was placed through separate stab incision and was maneuvered into the right paracolic gutter and the subhepatic space. The midline wound fascia was closed with #1 Prolene suture. A Jesup drain was placed into the wound. The skin was closed with surgical clips. The dressings were applied. The ostomy and mucous fistula were then matured in [place] fashion with 3-0 Vicryl sutures. A bag was placed. He tolerated the procedure without complication, was transferred in stable condition to the PACU. All instrument, needle, and sponge counts were correct at the end of the case. My internet marketing assistant was necessary throughout the procedure for tissue retraction, possible camera operation, and closure of the wounds. I understand that section 1842(b)(7)(D) of the Social Security act generally prohibits Medicare physician fee schedule payment for the services of assistants at surgery in teaching hospitals when qualified residents are available to furnish such services. I certify that the services for which payment is claimed were medically necessary and that no qualified resident was available to perform the services. I further understand that these services are subject to postpayment review by the Medicare carrier. I attest to the content of the Intraoperative Record and any orders documented therein. Any exceptions are noted below.
[2021-08-06] MEDS ORDERED: HYDROmorphone INJ 2 MG/ML SYR/VIAL IV PRN (17:33)
[2021-08-06] MEDS ORDERED: ePHEDrine sulfate 50 MG/ML AMP IV PRN (17:33)
[2021-08-06] MEDS ORDERED: FLUMAZENIL 0.1 MG/1 ML 10 ML VIAL IV PRN (17:33)
[2021-08-06] MEDS ORDERED: NALOXONE HCL 0.4 MG/1 ML VIAL/CARP IV PRN (17:33)
[2021-08-06] MEDS ORDERED: PROMETHAZINE HCL 12.5 MG in SODIUM CHLORIDE 0.9% 50 ML IV PRN (17:33)
[2021-08-06] MEDS ORDERED: ATROPINE SULFATE 0.1 MG/ML 10ML SYR IV PRN (17:33)
[2021-08-06] MEDS ORDERED: ONDANSETRON INJ 2 MG/ML 2 ML VIAL IV PRN (17:33)
[2021-08-06] MEDS ORDERED: LABETALOL HCL IV 5 MG/ML 20ML IV PRN (17:33)
[2021-08-06] MEDS ORDERED: HYDROmorphone INJ 1 MG/ML SYRINGE ONE ×2 (17:34→18:00)
[2021-08-06] MEDS: HYDROmorphone INJ 0.5 MG/0.5 ML SYR IV STA ×2 (18:01→19:17)
--- NOTE | 2021-08-06 18:19 | Anesthesiology Progress Note ---
Date of Service August 06, 2021 Anesthesia Post Procedure Vital Signs Vital Signs: Temp Pulse Pulse Resp BP BP BP 08/06/21 18:10 102 H 18 107/62 08/06/21 18:00 93 H 17 106/65 08/06/21 17:50 98 H 16 113/88 08/06/21 17:40 92 H 18 99/66 L 08/06/21 17:30 36.4 C L 94 H 16 96/59 L 08/06/21 14:14 36.7 C 87 18 118/71 08/06/21 13:34 86 16 99/59 L 08/06/21 11:01 88 91 H 14 116/64 08/06/21 10:29 36.5 C 92 H 18 120/71 Pulse Ox 08/06/21 18:10 97 08/06/21 18:00 97 08/06/21 17:50 97 08/06/21 17:40 97 08/06/21 17:30 95 08/06/21 14:14 97 08/06/21 13:34 98 08/06/21 11:01 98 08/06/21 10:29 94 Pain Intensity Abdomen: Pain Intensity: 8 Transfer of Care Handoff Completed per policy Notes Mental Status: alert / awake / arousable and participated in evaluation Patient Amnestic to Procedure: Yes Nausea / Vomiting: adequately controlled Pain: adequately controlled Airway Patency, RR, SpO2: stable & adequate BP & HR: stable & adequate Hydration State: stable & adequate Anesthetic Complications: no major complications apparent and Pt Satisfied with anesthetic care
[2021-08-06] MEDS ORDERED: PIPERACILLIN/TAZOBACTAM 3.375 GM in DEXTROSE 5% 100 ML IV SCH (18:45)
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
[2021-08-06] MEDS ORDERED: diphenhydrAMINE Capsule 25 MG CAP PO PRN (18:52)
[2021-08-06] MEDS ORDERED: SODIUM CHLORIDE 0.9% 1000ML 1,000 ML IV SCH (18:52)
[2021-08-06] MEDS ORDERED: MoRPHine SULFATE 2 MG/ML CARP IV PRN (18:52)
[2021-08-06] MEDS ORDERED: MoRPHine SULFATE 4 MG/ML 1 ML CARP\\VIAL IV PRN (18:52)
[2021-08-06 19:50] LABS: Hematocrit (blood only) 33.1 % (42-52); Hemoglobin 11.1 g/dL (14.0-18.0); Mean Corpuscular Hemoglobin 30.7 pg (25-34); Mean Corpuscular Hgb Conc 33.5 g/dL (32-36); Mean Corpuscular Volume 91.4 fL (80-100); Mean Platelet Volume 8.8 fL (7.4-10.4); Platelet Count 664 K/uL (130-400); RDW Coefficient of Variation 14.4 % (11.5-14.5); RDW Standard Deviation 47.7 fL (36.4-46.3); Red Blood Count 3.62 M/uL (4.7-6.1); White Blood Count 24.95 K/uL (4.8-10.8)
[2021-08-06 19:53] LABS: Fibrinogen 556 mg/dl (184-400)
[2021-08-06 19:56] LABS: Basophils # (auto) 0.03 K/uL (0-0.2); Basophils % (auto) 0.1 %; Eosinophils % (auto) 0.8 %; Immature Granulocytes # (auto) 0.24 K/uL (0.00-0.02); Lymphocytes # (auto) 1.79 K/uL (1.2-3.4); Lymphocytes % (auto) 7.2 %; Monocytes # (auto) 1.21 K/uL (0.11-0.59); Monocytes % (auto) 4.8 %; Neutrophils # (auto) 21.48 K/uL (1.4-6.5); Neutrophils % (auto) 86.1 %; RBC Morphology Unremarkable
[2021-08-06] MEDS ORDERED: NSS + 20MEQ KCL 20 MEQ/1,000 ML BAG IV SCH (20:00)
[2021-08-06 20:02] LABS: Albumin Globulin Ratio 0.9 (0.9-2); Albumin Level 2.7 gm/dl (3.4-5.0); Bilirubin,Total 0.9 mg/dl (0.2-1.0); Calcium 8.2 mg/dl (8.5-10.1); Creatinine Clr Calc Pharmacy 85.6 ml/min; Est GFR (African American) 71.4 ml/min; Est GFR (Non-African American) 61.6 ml/min; Globulin 3.1 gm/dl (2.5-4.0); Potassium 3.9 mmol/L (3.5-5.1); Total Protein 5.8 gm/dl (6.0-8.3)
[2021-08-06 20:25] LABS: Troponin I High Sensitivity 6.4 pg/ml (0-20)
[2021-08-06] MEDS ORDERED: NORMOSOL-R 500 ML IV ONE ×2 (21:00→23:28)
[2021-08-06] MEDS: PIPERACILLIN/TAZOBACTAM 4.5 GM in DEXTROSE 5% 100 ML IV SCH (21:26)
[2021-08-06] MEDS: NORMOSOL-R 1,000 ML IV SCH (22:11)
[2021-08-06] MEDS ORDERED: HYDROmorphone INJ 0.5 MG/0.5 ML SYR IV STA (22:24)
[2021-08-06] MEDS ORDERED: HYDROmorphone INJ 0.5 MG/0.5 ML SYR ONE (22:33)
[2021-08-06] MEDS ORDERED: ALBUMIN 25% 100 mL 25 GM/100 ML VIAL IV ONE (22:35)
[2021-08-06] MEDS ORDERED: STAT IV Infusion **Titration per Protocol STA (22:38)
[2021-08-06 23:00] LABS: Hemoglobin 10.3 g/dL (14.0-18.0)
--- NOTE | 2021-08-06 23:05 | Communication Note ---
Date of Service: August 06, 2021 2100: Nursing staff reports patient with borderline blood pressures and little urine output. Orders placed for fluid bolus as well as change of IV fluids to Normosol. 2230: Patient with complains worsening abdominal pain. Per nursing staff, has abdomen appears unchanged from change of shift. Patient continues with poor urine output. Orders placed for Dilaudid as well as labs and Levophed. Patient improved with Dilaudid dosing. Did place order for albumin as well. He received second IV fluid bolus. His urine output had seem to improve at that point. After initial dose of Dilaudid, the patient's pain had greatly improved as well. Patient requiring low-dose Levophed. Otherwise, overall, the patient's symptoms have improved and blood pressure has been controlled on minimal doses of Levophed. I have personally spent 37 minutes of critical care time in the direct management of this patient. This is a life/limb threatening event. This includes time spent evaluating patient, direct bedside care, chart review, placing orders, interpretation of diagnostic studies, discussion with consultants, patient, and family members, as well as other required patient management activities. This time is exclusive of all separately billable procedures, and teaching time and separate from and in addition to any other critical care service time. Coding Level of Care Code Critical Care sere prietot'l 30 min Time Spent (min) 37
[2021-08-06] MEDS: NOREPINEPHRINE/D5W 4 MG/250 ML PLCT IV SCH (23:06)
[2021-08-06 23:25] LABS: BUN Creatinine Ratio 15.9 (10-20); Calcium 7.6 mg/dl (8.5-10.1); Creatinine Clr Calc Pharmacy 63.2 ml/min; Est GFR (African American) 49.4 ml/min; Est GFR (Non-African American) 42.6 ml/min; Magnesium 1.7 mg/dl (1.7-2.4); Phosphorus 6.1 mg/dl (2.5-4.9); Potassium 4.5 mmol/L (3.5-5.1)
[2021-08-07] MEDS: HYDROmorphone INJ 0.5 MG/0.5 ML SYR IV PRN ×9 (00:54→21:59)
[2021-08-07] MEDS: PIPERACILLIN/TAZOBACTAM 4.5 GM in DEXTROSE 5% 100 ML IV SCH ×3 (02:34→19:46)
[2021-08-07] MEDS: NORMOSOL-R 1,000 ML IV SCH ×3 (03:41→17:01)
[2021-08-07 03:54] LABS: Hematocrit (blood only) 29.9 % (42-52); Hemoglobin 10.1 g/dL (14.0-18.0); Mean Corpuscular Hemoglobin 30.4 pg (25-34); Mean Corpuscular Hgb Conc 33.8 g/dL (32-36); Mean Corpuscular Volume 90.1 fL (80-100); Mean Platelet Volume 8.5 fL (7.4-10.4); Platelet Count 599 K/uL (130-400); RDW Coefficient of Variation 14.5 % (11.5-14.5); RDW Standard Deviation 47.6 fL (36.4-46.3); Red Blood Count 3.32 M/uL (4.7-6.1); White Blood Count 27.91 K/uL (4.8-10.8)
[2021-08-07 04:16] LABS: Basophils # (auto) 0.02 K/uL (0-0.2); Basophils % (auto) 0.1 %; Eosinophils # (auto) 0.08 K/uL (0-0.5); Eosinophils % (auto) 0.3 %; Immature Granulocytes # (auto) 0.18 K/uL (0.00-0.02); Immature Granulocytes % (auto) 0.6 %; Lymphocytes # (auto) 1.75 K/uL (1.2-3.4); Lymphocytes % (auto) 6.3 %; Monocytes # (auto) 1.51 K/uL (0.11-0.59); Monocytes % (auto) 5.4 %; Neutrophils # (auto) 24.37 K/uL (1.4-6.5); Neutrophils % (auto) 87.3 %
[2021-08-07 04:17] LABS: Troponin I High Sensitivity 6.3 pg/ml (0-20)
[2021-08-07 04:18] LABS: Albumin Level 2.7 gm/dl (3.4-5.0); BUN Creatinine Ratio 14.6 (10-20); Calcium 7.6 mg/dl (8.5-10.1); Est GFR (African American) 42.7 ml/min; Est GFR (Non-African American) 36.9 ml/min; Globulin 2.7 gm/dl (2.5-4.0); Magnesium 1.7 mg/dl (1.7-2.4); Phosphorus 6.3 mg/dl (2.5-4.9); Potassium 4.5 mmol/L (3.5-5.1); Total Protein 5.4 gm/dl (6.0-8.3)
[2021-08-07] MEDS: NOREPINEPHRINE/D5W 4 MG/250 ML PLCT IV SCH ×2 (06:00→16:59)
--- NOTE | 2021-08-07 08:38 | Surgery Progress Note ---
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 He is doing fairly well status post surgery. No anticoagulation yet, however his hemoglobin was stable overnight. We may be able to start anticoagulation this afternoon, heparin drip with no bolus. He may require filter placement. Continue Levophed as necessary for blood pressure. We will continue to monitor urine output and labs. Pain control with Dilaudid. Given pulmonary embolism, low threshold to transfer to tertiary care center if needed. We will continue to follow. Dr. Cabezas is covering for the rest of the weekend. Admission and Anticipated Discharge Date Admission Date: August 06, 2021 Subjective Postop day 1 status post exploratory laparotomy, abdominal washout, resection of anastomosis, ileostomy and mucous fistula. He was found to have DVT, PE, superior mesenteric venous embolism. Today he is doing fairly well. He is requiring a small amount of Levophed for blood pressure. Hemoglobin/hematocrit stable overnight. No anticoagulation at this point. Creatinine 1.85. Urine output is borderline low. He is on IV fluids, normal saline at 150. He had a bolus overnight. NG tube in place. Pain control with Dilaudid. Physical Exam Constitutional: + morbidly obese; no acute distress Respiratory: normal respiratory effort; no respiratory distress and no labored breathing Cardiovascular: Rate/Rhythm: regular rhythm and + tachycardic Gastrointestinal (Abdomen): Percussion/Palpation: + abdomen tender (Diffusely) and abdomen soft; no guarding and abdomen not rigid Dressings clean and dry; ileostomy pink and viable, bowel sweat in bag Psychiatric: A+Ox3, euthymic affect Results & Data ([facility]) Vital Signs (Past 12 Hours) Vital Signs Temp Pulse Resp BP Pulse Ox 08/07/21 06:22 94 H 24 107/59 L 94 08/07/21 05:00 92 H 26 H 120/61 93 08/07/21 04:02 36.9 C 08/07/21 04:01 99 H 28 H 101/74 96 08/07/21 03:00 98 H 24 95/58 L 94 08/07/21 02:45 89 20 106/61 3 L 08/07/21 02:30 100 H 35 H 86/55 L 95 08/07/21 02:00 94 H 28 H 94/57 L 95 08/07/21 01:45 102 H 26 H 86/58 L 95 08/07/21 01:30 96 H 46 H 87/58 L 94 08/07/21 01:15 102 H 27 H 92/54 L 95 08/07/21 01:00 100 H 35 H 94/56 L 95 08/07/21 00:45 100 H 31 H 99/67 L 95 08/07/21 00:30 104 H 27 H 119/67 96 08/07/21 00:15 95 H 24 103/69 96 08/07/21 00:00 37.2 C 96 H 25 H 116/65 94 08/06/21 23:46 100 H 20 103/74 96 08/06/21 23:30 99 H 38 H 93/60 L 95 08/06/21 23:15 106 H 25 H 101/62 93 08/06/21 23:00 107 H 27 H 80/50 L 94 08/06/21 22:45 142 H 29 H 82/63 L 96 08/06/21 22:30 166 H 27 H 94/53 L 96 08/06/21 22:15 106 H 24 85/57 L 95 08/06/21 22:00 112 H 21 100/64 97 08/06/21 21:45 103 H 24 89/67 L 95 08/06/21 21:39 107 H 27 H 94/67 L 96 08/06/21 21:30 108 H 26 H 83/62 L 95 08/06/21 21:15 111 H 26 H 95 08/06/21 21:00 83/56 L Laboratory Results 08/07/21 08/07/21 08/06/21 Range/Units 03:18 03:18 22:47 WBC 27.91 H (4.8-10.8) K/uL RBC 3.32 L (4.7-6.1) M/uL Hgb 10.1 L 10.3 L (14.0-18.0) g/dL Hct 29.9 L 31.0 L (42-52) % MCV 90.1 (80-100) fL MCH 30.4 (25-34) pg MCHC 33.8 (32-36) g/dL RDW Std Deviation 47.6 H (36.4-46.3) fL RDW Coeff of Donny 14.5 (11.5-14.5) % Plt Count 599 H (130-400) K/uL MPV 8.5 (7.4-10.4) fL Immature Gran % (Auto) 0.6 % Neut % (Auto) 87.3 % Lymph % (Auto) 6.3 % Maverick % (Auto) 5.4 % Eos % (Auto) 0.3 % Baso % (Auto) 0.1 % Neut # (Auto) 24.37 H (1.4-6.5) K/uL Lymph # (Auto) 1.75 (1.2-3.4) K/uL Maverick # (Auto) 1.51 H (0.11-0.59) K/uL Eos # (Auto) 0.08 (0-0.5) K/uL Baso # (Auto) 0.02 (0-0.2) K/uL Immature Gran # (Auto) 0.18 H (0.00-0.02) K/uL RBC Morphology PT (9.0-12.0) Seconds INR (0.9-1.1) APTT (21.0-31.0) Seconds PTT Ratio Fibrinogen (184-400) mg/dl Sodium 133 L (136-145) mmol/L Potassium 4.5 (3.5-5.1) mmol/L Chloride 98 (98-107) mmol/L Carbon Dioxide 24 (21-32) mmol/L Anion Gap 11 (3-11) BUN 27 H (6-23) mg/dl Creatinine 1.85 H (0.6-1.4) mg/dl Est Cr Clr Drug Dosing 56.0 ml/min Est GFR ( Amer) 42.7 ml/min Est GFR (Non-Af Amer) 36.9 ml/min BUN/Creatinine Ratio 14.6 (10-20) Glucose 133 H (70-99(Fasting)) mg/dl Lactate (0.4-2.0) mmol/L Calcium 7.6 L (8.5-10.1) mg/dl Phosphorus 6.3 H (2.5-4.9) mg/dl Magnesium 1.7 (1.7-2.4) mg/dl Total Bilirubin 1.0 (0.2-1.0) mg/dl AST 19 (13-39) U/L ALT 27 (7-52) U/L Alkaline Phosphatase 44 (34-104) U/L Troponin I High Sens 6.3 (0-20) pg/ml B-Natriuretic Peptide (0-100) pg/ml Total Protein 5.4 L (6.0-8.3) gm/dl Albumin 2.7 L (3.4-5.0) gm/dl Globulin 2.7 (2.5-4.0) gm/dl Albumin/Globulin Ratio 1.0 (0.9-2) Lipase (11-82) U/L Nasal Screen MRSA (PCR) (Negative) SARS-CoV-2, RNA, NAAT (NEGATIVE) Blood Type Antibody Screen 08/06/21 08/06/21 08/06/21 Range/Units 22:44 22:44 18:57 WBC (4.8-10.8) K/uL RBC (4.7-6.1) M/uL Hgb (14.0-18.0) g/dL Hct (42-52) % MCV (80-100) fL MCH (25-34) pg MCHC (32-36) g/dL RDW Std Deviation (36.4-46.3) fL RDW Coeff of Donny (11.5-14.5) % Plt Count (130-400) K/uL MPV (7.4-10.4) fL Immature Gran % (Auto) % Neut % (Auto) % Lymph % (Auto) % Maverick % (Auto) % Eos % (Auto) % Baso % (Auto) % Neut # (Auto) (1.4-6.5) K/uL Lymph # (Auto) (1.2-3.4) K/uL Maverick # (Auto) (0.11-0.59) K/uL Eos # (Auto) (0-0.5) K/uL Baso # (Auto) (0-0.2) K/uL Immature Gran # (Auto) (0.00-0.02) K/uL RBC Morphology PT (9.0-12.0) Seconds INR (0.9-1.1) APTT (21.0-31.0) Seconds PTT Ratio Fibrinogen 556 H (184-400) mg/dl Sodium 131 L (136-145) mmol/L Potassium 4.5 (3.5-5.1) mmol/L Chloride 97 L (98-107) mmol/L Carbon Dioxide 25 (21-32) mmol/L Anion Gap 9 (3-11) BUN 26 H (6-23) mg/dl Creatinine 1.64 H D (0.6-1.4) mg/dl Est Cr Clr Drug Dosing 63.2 ml/min Est GFR ( Amer) 49.4 ml/min Est GFR (Non-Af Amer) 42.6 ml/min BUN/Creatinine Ratio 15.9 (10-20) Glucose 134 H (70-99(Fasting)) mg/dl Lactate 1.0 (0.4-2.0) mmol/L Calcium 7.6 L (8.5-10.1) mg/dl Phosphorus 6.1 H (2.5-4.9) mg/dl Magnesium 1.7 (1.7-2.4) mg/dl Total Bilirubin (0.2-1.0) mg/dl AST (13-39) U/L ALT (7-52) U/L Alkaline Phosphatase (34-104) U/L Troponin I High Sens (0-20) pg/ml B-Natriuretic Peptide (0-100) pg/ml Total Protein (6.0-8.3) gm/dl Albumin (3.4-5.0) gm/dl Globulin (2.5-4.0) gm/dl Albumin/Globulin Ratio (0.9-2) Lipase (11-82) U/L Nasal Screen MRSA (PCR) (Negative) SARS-CoV-2, RNA, NAAT (NEGATIVE) Blood Type Antibody Screen 08/06/21 08/06/21 08/06/21 Range/Units 18:52 18:52 18:52 WBC 24.95 H (4.8-10.8) K/uL RBC 3.62 L (4.7-6.1) M/uL Hgb 11.1 L (14.0-18.0) g/dL Hct 33.1 L (42-52) % MCV 91.4 (80-100) fL MCH 30.7 (25-34) pg MCHC 33.5 (32-36) g/dL RDW Std Deviation 47.7 H (36.4-46.3) fL RDW Coeff of Donny 14.4 (11.5-14.5) % Plt Count 664 H (130-400) K/uL MPV 8.8 (7.4-10.4) fL Immature Gran % (Auto) 1.0 % Neut % (Auto) 86.1 % Lymph % (Auto) 7.2 % Maverick % (Auto) 4.8 % Eos % (Auto) 0.8 % Baso % (Auto) 0.1 % Neut # (Auto) 21.48 H (1.4-6.5) K/uL Lymph # (Auto) 1.79 (1.2-3.4) K/uL Maverick # (Auto) 1.21 H (0.11-0.59) K/uL Eos # (Auto) 0.20 (0-0.5) K/uL Baso # (Auto) 0.03 (0-0.2) K/uL Immature Gran # (Auto) 0.24 H (0.00-0.02) K/uL RBC Morphology Unremarkable PT (9.0-12.0) Seconds INR (0.9-1.1) APTT (21.0-31.0) Seconds PTT Ratio Fibrinogen (184-400) mg/dl Sodium 134 L (136-145) mmol/L Potassium 3.9 (3.5-5.1) mmol/L Chloride 97 L (98-107) mmol/L Carbon Dioxide 26 (21-32) mmol/L Anion Gap 11 (3-11) BUN 23 (6-23) mg/dl Creatinine 1.21 D (0.6-1.4) mg/dl Est Cr Clr Drug Dosing 85.6 ml/min Est GFR ( Amer) 71.4 ml/min Est GFR (Non-Af Amer) 61.6 ml/min BUN/Creatinine Ratio 19.0 (10-20) Glucose 156 H (70-99(Fasting)) mg/dl Lactate (0.4-2.0) mmol/L Calcium 8.2 L (8.5-10.1) mg/dl Phosphorus (2.5-4.9) mg/dl Magnesium (1.7-2.4) mg/dl Total Bilirubin 0.9 (0.2-1.0) mg/dl AST 26 (13-39) U/L ALT 34 (7-52) U/L Alkaline Phosphatase 55 (34-104) U/L Troponin I High Sens 6.4 (0-20) pg/ml B-Natriuretic Peptide (0-100) pg/ml Total Protein 5.8 L (6.0-8.3) gm/dl Albumin 2.7 L (3.4-5.0) gm/dl Globulin 3.1 (2.5-4.0) gm/dl Albumin/Globulin Ratio 0.9 (0.9-2) Lipase (11-82) U/L Nasal Screen MRSA (PCR) (Negative) SARS-CoV-2, RNA, NAAT (NEGATIVE) Blood Type B Negative Antibody Screen NEGATIVE 08/06/21 08/06/21 08/06/21 Range/Units 18:50 12:18 10:40 WBC (4.8-10.8) K/uL RBC (4.7-6.1) M/uL Hgb (14.0-18.0) g/dL Hct (42-52) % MCV (80-100) fL MCH (25-34) pg MCHC (32-36) g/dL RDW Std Deviation (36.4-46.3) fL RDW Coeff of Donny (11.5-14.5) % Plt Count (130-400) K/uL MPV (7.4-10.4) fL Immature Gran % (Auto) % Neut % (Auto) % Lymph % (Auto) % Maverick % (Auto) % Eos % (Auto) % Baso % (Auto) % Neut # (Auto) (1.4-6.5) K/uL Lymph # (Auto) (1.2-3.4) K/uL Maverick # (Auto) (0.11-0.59) K/uL Eos # (Auto) (0-0.5) K/uL Baso # (Auto) (0-0.2) K/uL Immature Gran # (Auto) (0.00-0.02) K/uL RBC Morphology PT 11.5 (9.0-12.0) Seconds INR 1.1 (0.9-1.1) APTT 28.6 (21.0-31.0) Seconds PTT Ratio 1.0 Fibrinogen (184-400) mg/dl Sodium (136-145) mmol/L Potassium (3.5-5.1) mmol/L Chloride (98-107) mmol/L Carbon Dioxide (21-32) mmol/L Anion Gap (3-11) BUN (6-23) mg/dl Creatinine (0.6-1.4) mg/dl Est Cr Clr Drug Dosing ml/min Est GFR ( Amer) ml/min Est GFR (Non-Af Amer) ml/min BUN/Creatinine Ratio (10-20) Glucose (70-99(Fasting)) mg/dl Lactate (0.4-2.0) mmol/L Calcium (8.5-10.1) mg/dl Phosphorus (2.5-4.9) mg/dl Magnesium (1.7-2.4) mg/dl Total Bilirubin (0.2-1.0) mg/dl AST (13-39) U/L ALT (7-52) U/L Alkaline Phosphatase (34-104) U/L Troponin I High Sens (0-20) pg/ml B-Natriuretic Peptide (0-100) pg/ml Total Protein (6.0-8.3) gm/dl Albumin (3.4-5.0) gm/dl Globulin (2.5-4.0) gm/dl Albumin/Globulin Ratio (0.9-2) Lipase (11-82) U/L Nasal Screen MRSA (PCR) Negative (Negative) SARS-CoV-2, RNA, NAAT NEGATIVE (NEGATIVE) Blood Type Antibody Screen 08/06/21 08/06/21 08/06/21 Range/Units 10:40 10:40 10:40 WBC 16.00 H (4.8-10.8) K/uL RBC 3.96 L (4.7-6.1) M/uL Hgb 11.6 L (14.0-18.0) g/dL Hct 35.2 L (42-52) % MCV 88.9 (80-100) fL MCH 29.3 (25-34) pg MCHC 33.0 (32-36) g/dL RDW Std Deviation 46.6 H (36.4-46.3) fL RDW Coeff of Donny 14.3 (11.5-14.5) % Plt Count 543 H (130-400) K/uL MPV 8.8 (7.4-10.4) fL Immature Gran % (Auto) 0.8 % Neut % (Auto) 76.7 % Lymph % (Auto) 11.8 % Maverick % (Auto) 6.4 % Eos % (Auto) 4.2 % Baso % (Auto) 0.1 % Neut # (Auto) 12.27 H (1.4-6.5) K/uL Lymph # (Auto) 1.89 (1.2-3.4) K/uL Maverick # (Auto) 1.03 H (0.11-0.59) K/uL Eos # (Auto) 0.67 H (0-0.5) K/uL Baso # (Auto) 0.02 (0-0.2) K/uL Immature Gran # (Auto) 0.12 H (0.00-0.02) K/uL RBC Morphology PT (9.0-12.0) Seconds INR (0.9-1.1) APTT (21.0-31.0) Seconds PTT Ratio Fibrinogen (184-400) mg/dl Sodium 133 L (136-145) mmol/L Potassium 3.8 (3.5-5.1) mmol/L Chloride 97 L (98-107) mmol/L Carbon Dioxide 26 (21-32) mmol/L Anion Gap 10 (3-11) BUN 22 (6-23) mg/dl Creatinine 0.87 (0.6-1.4) mg/dl Est Cr Clr Drug Dosing 107.8 ml/min Est GFR ( Amer) 103.5 ml/min Est GFR (Non-Af Amer) 89.3 ml/min BUN/Creatinine Ratio 25.3 H (10-20) Glucose 104 H (70-99(Fasting)) mg/dl Lactate (0.4-2.0) mmol/L Calcium 8.8 (8.5-10.1) mg/dl Phosphorus (2.5-4.9) mg/dl Magnesium (1.7-2.4) mg/dl Total Bilirubin 0.8 (0.2-1.0) mg/dl AST 32 (13-39) U/L ALT 41 (7-52) U/L Alkaline Phosphatase 62 (34-104) U/L Troponin I High Sens 7.0 (0-20) pg/ml B-Natriuretic Peptide 20 (0-100) pg/ml Total Protein 6.8 (6.0-8.3) gm/dl Albumin 3.1 L (3.4-5.0) gm/dl Globulin 3.7 (2.5-4.0) gm/dl Albumin/Globulin Ratio 0.8 L (0.9-2) Lipase 20 (11-82) U/L Nasal Screen MRSA (PCR) (Negative) SARS-CoV-2, RNA, NAAT (NEGATIVE) Blood Type Antibody Screen (1) Acute pulmonary embolism Acute cor pulmonale presence: unspecified Pulmonary embolism type: unspecified Qualified Code(s): I26.99 - Other pulmonary embolism without acute cor pulmonale
--- NOTE | 2021-08-07 10:03 | Critical Care Progress Note ---
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 He was also found to have a right upper lobe pulmonary embolism and lower extremity DVT. Neurologic: Mentating well. Pain control per general surgery ordered. Pulmonary: Oxygenating well on nasal cannula. Continue to monitor respiratory status closely given morbid obesity and postoperative state status post intra-abdominal surgery. Encourage incentive spirometry. Aspiration precautions. Cardiovascular: Maintain mean arterial pressure above 65. Hold home antihypertensives at this time. Monitor telemetry status. Low threshold to transfer to tertiary center if decompensation related to pulmonary embolism for consideration of ECMO or thrombectomy. Gastrointestinal: Status post ileostomy with mucous fistula and abscess drainage. Patient with history of recently diagnosed adenocarcinoma of the appendix with local metastatic disease to the lymph nodes. Management of NG tube per general surger y. Renal: Monitor urine output closely. Creatinine increasing and evidence of LUCY. Monitor urine output closely. Continue crystalloid infusion. Received albumin overnight. Infectious disease: Blood cultures. Zosyn empirically. Hematologic: Patient with retroperitoneal bleed intraoperatively. Hemoglobin stable. Hemodynamically stable at this time. Patient hypercoagulable. He has an acute right upper lobe PE, lower extremity DVT and mesenteric vein thrombus. Unfortunately, we cannot anticoagulate him at this time given the retroperitoneal bleed and surgical procedures today. He will likely need an IVC filter, but unclear if this can be done in the presence of a mesenteric vein thrombosis. He may have tumor emboli syndrome. Fibrinogen level does not suggest DIC. Discussed with general surgeon and he indicates that starting low- dose heparin infusion later in the evening is likely reasonable without bolus. Will need close ICU monitoring. Endocrine: Maintain euglycemia. Lines and tubes: Da Silva catheter in place. Peripheral IVs. VTE prophylaxis: SCDs. CODE STATUS: Full code Family at bedside: None at bedside. Disposition: ICU I have personally spent 36 minutes of critical care time in the direct management of this patient. This is a life/limb threatening event. This includes time spent evaluating patient, direct bedside care, chart review, placing orders, interpretation of diagnostic studies, discussion with consultants, patient, and family members, as well as other required patient management activities. This time is exclusive of all separately billable procedures, and teaching time and separate from and in addition to any other critical care service time. Thank you for allowing us to participate in the care of this patient. Admission and Anticipated Discharge Date Admission Date: August 06, 2021 Subjective Patient seen and examined. Appears much more awake and alert than yesterday. Pain is better controlled, but still present. Mild hemodynamic instability overnight requiring occasional low doses of Levophed. Currently off of vasopressors. Urine output has picked up somewhat overnight. Creatinine has worsened. Patient denies any chest pain. No shortness of breath. He is currently on 3 L of oxygen. Review of Systems Review of Systems: All systems reviewed & are unremarkable except as noted in HPI & below Physical Exam Physical Exam: Constitutional: 65-year-old male in no distress. Morbidly obese. Eyes: Pupils are equal round and reactive to light. Conjunctivae are normal. Anicteric sclera. Ears nose, mouth and throat: Mallampati class 3. Normal posterior oropharynx. Uvula is midline. Neck: Trachea is midline. Visual inspection is normal. Respiratory: Diminished bilateral lung sounds. No increased work of breathing. Cardiovascular: Regular rate and rhythm. No murmurs. No edema. Gastrointestinal: Abdominal distention with pain. Incision site and ileostomy noted. Musculoskeletal: No cyanosis. Patient is able to move all extremities. Skin: No rashes, warm dry and intact. Neurologic: No obvious focal neurological deficits seen. Psychiatric: Patient appears moderately anxious and in pain. Alert and oriented x3. Results & Data Results & Data ([facility]) Vital Signs (Past 12 Hours) Vital Signs Temp Pulse Resp BP Pulse Ox 08/07/21 06:22 94 H 24 107/59 L 94 08/07/21 05:00 92 H 26 H 120/61 93 08/07/21 04:02 36.9 C 08/07/21 04:01 99 H 28 H 101/74 96 08/07/21 03:00 98 H 24 95/58 L 94 08/07/21 02:45 89 20 106/61 3 L 08/07/21 02:30 100 H 35 H 86/55 L 95 08/07/21 02:00 94 H 28 H 94/57 L 95 08/07/21 01:45 102 H 26 H 86/58 L 95 08/07/21 01:30 96 H 46 H 87/58 L 94 08/07/21 01:15 102 H 27 H 92/54 L 95 08/07/21 01:00 100 H 35 H 94/56 L 95 08/07/21 00:45 100 H 31 H 99/67 L 95 08/07/21 00:30 104 H 27 H 119/67 96 08/07/21 00:15 95 H 24 103/69 96 08/07/21 00:00 37.2 C 96 H 25 H 116/65 94 08/06/21 23:46 100 H 20 103/74 96 08/06/21 23:30 99 H 38 H 93/60 L 95 08/06/21 23:15 106 H 25 H 101/62 93 08/06/21 23:00 107 H 27 H 80/50 L 94 08/06/21 22:45 142 H 29 H 82/63 L 96 08/06/21 22:30 166 H 27 H 94/53 L 96 08/06/21 22:15 106 H 24 85/57 L 95 08/06/21 22:00 112 H 21 100/64 97 Coding Level of Care Code Critical Care 1st 30-74 mins Diagnoses Anastomotic leak of intestine K91.89 Pneumoperitoneum K66.8 Superior mesenteric vein thrombosis K55.069 Acute pulmonary embolism I26.99 Acute cor pulmonale presence: unspecified Pulmonary embolism type: unspecified Anemia D64.9 Anemia type: unspecified type 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
[2021-08-07] MEDS ORDERED: NORMOSOL-R 500 ML IV ONE (11:00)
[2021-08-07] MEDS: MAGNESIUM SULFATE / D5W 1 GM/100 ML BAG IV SCH ×2 (11:51→15:05)
--- NOTE | 2021-08-07 12:37 | Hospitalist Progress Note ---
Date of Service August 07, 2021 Assessment & Plan (1) Anastomotic leak of intestine: Plan: Anastomotic leak with abscess Status Post elective laparoscopic assisted right hemicolectomy for intramucosal tumor found on colonoscopy and biopsy.07/26/2021 Worsening abdominal pain since discharge from the hospital on 07/30/2021 --CT ABD:CT findings most characteristic of an anastomotic leak with an abscess seen along the right paracolic gutter. There is also extensive free air as seen radiographically. There is mild to moderate ascites present with fluid over the dome of the liver and extending down both paracolic gutters and into the pelvis. Thrombus within the superior mesenteric vein. Appreciate surgery input and recommendation Status post:: Laparotomy, Colon Resection with Ostomy Placement on 08/06/2021 Gentle IV fluids given mildly volume overload status Has been on Zosyn for possible intra-abdominal/intestinal infection Blood cultures have been taken Minimal abdominal distention and pain Bowel has not moved Acute PE/DVT . Mesenteric vein thrombosis --CTA:Small pulmonary embolus within a segmental branch of the right upper lobe. No additional pulmonary emboli identified although lower lobe pulmonary arteries suboptimally opacified. --CT ABD: mild to moderate ascites present with fluid over the dome of the liver and extending down both paracolic gutters and into the pelvis. Thrombus within the superior mesenteric vein. --Venous Doppler:Nonobstructive left popliteal vein thrombus. -Echo of the heart showed-LV cavity is small, moderate concentric LVH, LV is hyperdynamic, EF more than 70%, RV is normal in size and function, no gross valvular abnormalities and no pulmonary hypertension -Discussed with surgeon and electrical helper -We will start low-dose heparin without bolus this evening -Monitor H&H to document evidence of bleeding -If cannot tolerate heparin will need to put IVC filter and the patient may need to be transferred LUCY Creatinine is noted to be high on admission at 1.64 and that has been increasing to 1.85 Has been getting intravenous fluid- cautious amount Cumulative balance is 466 3 mL We will monitor BMP HTN Hold benazepril, HCTZ today Monitor BP-remains at the lower side Received intravenous albumin yesterday Has been requiring pressor agents to maintain blood pressure otherwise remains reasonably stable Hepatitis C Completed treatment as per patient Morbid obesity BMI 41 DVT Px: SCDs for now Re: Surgery Will be starting low-dose heparin without bolus in the evening Code Status Full Code Admission and Anticipated Discharge Date Admission Date: August 06, 2021 Subjective 08/07/2021 The patient was seen and examined in ICU He has been feeling a little better and complains to have a lot of abdominal distention and pain Denies any chest pain with breathing or at rest, no palpitation and no shortness of breath No fever and/or chills Review of Systems Review of Systems: All systems reviewed and are unremarkable except as noted below Respiratory: No shortness of breath at rest Gastrointestinal: Abdominal distention, status post laparoscopic right hemicolectomy Physical Exam Physical Exam: Lying in bed with minimal distress and anxiety Constitutional: well developed, well nourished, + ill appearing and + obese Eyes: PERRL, conjunctivae normal, anicteric sclerae ENMT: external ear and nose normal, oropharynx normal Neck: trachea midline, no thyromegaly Respiratory: no respiratory distress Auscultation: + crackles (Minimal crackles at the bases) Cardiovascular: Rate/Rhythm: regular rate and regular rhythm; not tachycardic Heart Sounds: normal S1 and normal S2; no murmur Extremities: + edema (1+ edema bilaterally) Gastrointestinal (Abdomen): Inspection/Auscultation: + abdomen distended; + abnormal bowel sounds (Decreased bowel sound) Percussion/Palpation: + abdomen tender (All over) and abdomen soft Musculoskeletal: No acute arthritis in any joint Neurologic: Alert, awake and oriented x3. No focal sensory and motor deficit appreciated Lymphatic: no cervical or axillary lymphadenopathy Results & Data Results & Data ([facility]) Vital Signs (Past 12 Hours) Vital Signs Temp Pulse Pulse Resp BP BP Pulse Ox 08/07/21 10:00 94 H 21 89/48 L 94 08/07/21 09:00 99 H 23 104/64 94 08/07/21 08:00 96 H 29 H 99/63 L 94 08/07/21 07:45 96 H 24 103/60 96 08/07/21 07:30 95 H 20 101/58 L 92 08/07/21 07:15 98 H 25 H 96/48 L 88 L 08/07/21 07:00 105 H 24 117/71 93 08/07/21 06:45 98 H 22 114/70 93 08/07/21 06:22 94 H 24 107/59 L 94 08/07/21 05:00 92 H 26 H 120/61 93 08/07/21 04:02 36.9 C 08/07/21 04:01 99 H 28 H 101/74 96 08/07/21 03:00 98 H 24 95/58 L 94 08/07/21 02:45 89 20 106/61 3 L 08/07/21 02:30 100 H 35 H 86/55 L 95 08/07/21 02:00 94 H 28 H 94/57 L 95 08/07/21 01:45 102 H 26 H 86/58 L 95 08/07/21 01:30 96 H 46 H 87/58 L 94 08/07/21 01:15 102 H 27 H 92/54 L 95 08/07/21 01:00 100 H 35 H 94/56 L 95 08/07/21 00:45 100 H 31 H 99/67 L 95 Laboratory Results Short CBC 08/06/21 08/06/21 08/07/21 Range/Units 18:52 22:47 03:18 WBC 24.95 H 27.91 H (4.8-10.8) K/uL Hgb 11.1 L 10.3 L 10.1 L (14.0-18.0) g/dL Hct 33.1 L 31.0 L 29.9 L (42-52) % Plt Count 664 H 599 H (130-400) K/uL BMP 08/06/21 08/06/21 08/07/21 18:52 22:44 03:18 Sodium 134 L 131 L 133 L Potassium 3.9 4.5 4.5 Chloride 97 L 97 L 98 Carbon Dioxide 26 25 24 BUN 23 26 H 27 H Creatinine 1.21 D 1.64 H D 1.85 H Glucose 156 H 134 H 133 H Calcium 8.2 L 7.6 L 7.6 L Liver Function 08/06/21 08/07/21 Range/Units 18:52 03:18 Total Bilirubin 0.9 1.0 (0.2-1.0) mg/dl AST 26 19 (13-39) U/L ALT 34 27 (7-52) U/L Alkaline Phosphatase 55 44 (34-104) U/L Albumin 2.7 L 2.7 L (3.4-5.0) gm/dl Medications Administered Current Inpatient Medications Diphenhydramine HCl (Diphenhydramine Capsule 25 Mg Cap) 25 mg PO Q4H PRN PRN Reason: hives, itching or insomnia Stop: 09/05/21 18:51 Hydromorphone HCl (Hydromorphone Inj 0.5 Mg/0.5 Ml Syr) 0.5 mg IV Q2H PRN PRN Reason: Pain Stop: 08/21/21 00:44 Last Admin: 08/07/21 11:44 Dose: 0.5 mg Documented by: Piperacillin Sod/Tazobactam (Sod 4.5 gm/ Dextrose) 120 mls @ 30 mls/hr IV Q8H SIM; Protocol Stop: 08/16/21 19:29 Last Admin: 08/07/21 10:44 Dose: 30 mls/hr Documented by: Parenteral Electrolytes (Normosol-R) 1,000 mls @ 150 mls/hr IV .Q6H40M SIM Stop: 09/05/21 20:59 Last Admin: 08/07/21 10:43 Dose: 150 mls/hr Documented by: Norepinephrine Bitartrate (Levophed/D5w) 4 mg in 250 mls @ 26.081 mls/hr IV .Q9H36M SIM; Protocol Stop: 09/05/21 22:44 Last Titration: 08/07/21 12:12 Dose: 0.03 mcg/kg/min, 15.6 mls/hr Documented by: Magnesium Sulfate/Dextrose (Magnesium Sulfate / D5w) 1 gm in 100 mls @ 50 mls/hr IV Q2H SIM Stop: 08/07/21 15:14 Last Admin: 08/07/21 11:51 Dose: 50 mls/hr Documented by: Ondansetron HCl (Ondansetron Inj 2 Mg/Ml 2 Ml Vial) 4 mg IV Q6H PRN PRN Reason: Nausea Stop: 09/05/21 18:51
[2021-08-07] MEDS ORDERED: PNEUMOCOCCAL Polysaccharide Vaccine 25mcg/0.5mL vial/Syr IM ONE (14:00)
[2021-08-07] MEDS ORDERED: ALBUMIN 5% 250 ML IV ONE ×2 (16:39→17:15)
[2021-08-07] MEDS ORDERED: HEPARIN SODIUM/DEXTROSE 25,000 UNITS/500 ML BAG IV SCH (17:15)
[2021-08-07 17:41] LABS: Albumin Level 2.7 gm/dl (3.4-5.0); Bilirubin,Total 1.1 mg/dl (0.2-1.0); Calcium 7.3 mg/dl (8.5-10.1); Creatinine Clr Calc Pharmacy 47.1 ml/min; Est GFR (African American) 34.5 ml/min; Est GFR (Non-African American) 29.7 ml/min; Globulin 2.7 gm/dl (2.5-4.0); Potassium 4.3 mmol/L (3.5-5.1); Total Protein 5.4 gm/dl (6.0-8.3)
[2021-08-07] MEDS ORDERED: STAT IV STA (17:54)
[2021-08-07] MEDS ORDERED: CALCIUM GLUCONATE 10% 1,000 MG in DEXTROSE 5% 50 ML IV ONE (17:54)
[2021-08-07 18:12] LABS: Hematocrit (blood only) 27.6 % (42-52); Hemoglobin 9.3 g/dL (14.0-18.0); Mean Corpuscular Hemoglobin 30.4 pg (25-34); Mean Corpuscular Hgb Conc 33.7 g/dL (32-36); Mean Corpuscular Volume 90.2 fL (80-100); Mean Platelet Volume 8.3 fL (7.4-10.4); Platelet Count 507 K/uL (130-400); RDW Coefficient of Variation 14.6 % (11.5-14.5); RDW Standard Deviation 48.1 fL (36.4-46.3); Red Blood Count 3.06 M/uL (4.7-6.1); White Blood Count 23.97 K/uL (4.8-10.8)
[2021-08-07] MEDS: SODIUM CHLORIDE 0.9% 1000ML 500 ML IV SCH (18:51)
[2021-08-07] MEDS: ONDANSETRON INJ 2 MG/ML 2 ML VIAL IV PRN (18:52)
[2021-08-07] MEDS: Heparin IV Adult Wt-Based Low-Dose *NO* Bolus Protocol IV SCH ×4 (19:22→19:36)
[2021-08-08] MEDS: HYDROmorphone INJ 0.5 MG/0.5 ML SYR IV PRN ×7 (00:40→22:13)
[2021-08-08] MEDS: SODIUM CHLORIDE 0.9% 1000ML 500 ML IV SCH ×2 (01:20→04:36)
[2021-08-08] MEDS: SODIUM CHLORIDE 0.9% 500 ML IV SCH ×2 (02:09→10:18)
[2021-08-08] MEDS: PIPERACILLIN/TAZOBACTAM 4.5 GM in DEXTROSE 5% 100 ML IV SCH ×3 (04:18→19:51)
[2021-08-08 05:42] LABS: Basophils # (auto) 0.02 K/uL (0-0.2); Basophils % (auto) 0.1 %; Eosinophils # (auto) 0.37 K/uL (0-0.5); Eosinophils % (auto) 1.9 %; Hematocrit (blood only) 24.2 % (42-52); Hemoglobin 8.1 g/dL (14.0-18.0); Immature Granulocytes # (auto) 0.09 K/uL (0.00-0.02); Immature Granulocytes % (auto) 0.5 %; Lymphocytes # (auto) 1.36 K/uL (1.2-3.4); Lymphocytes % (auto) 6.9 %; Mean Corpuscular Hemoglobin 30.2 pg (25-34); Mean Corpuscular Hgb Conc 33.5 g/dL (32-36); Mean Corpuscular Volume 90.3 fL (80-100); Mean Platelet Volume 8.3 fL (7.4-10.4); Monocytes # (auto) 1.22 K/uL (0.11-0.59); Monocytes % (auto) 6.2 %; Neutrophils # (auto) 16.59 K/uL (1.4-6.5); Neutrophils % (auto) 84.4 %; Platelet Count 475 K/uL (130-400); RDW Coefficient of Variation 14.8 % (11.5-14.5); RDW Standard Deviation 48.6 fL (36.4-46.3); Red Blood Count 2.68 M/uL (4.7-6.1); White Blood Count 19.65 K/uL (4.8-10.8)
[2021-08-08 06:27] LABS: BUN Creatinine Ratio 16.3 (10-20); Calcium 7.2 mg/dl (8.5-10.1); Creatinine Clr Calc Pharmacy 48.5 ml/min; Est GFR (African American) 35.6 ml/min; Est GFR (Non-African American) 30.7 ml/min; Magnesium 2.4 mg/dl (1.7-2.4); Phosphorus 4.9 mg/dl (2.5-4.9); Potassium 3.9 mmol/L (3.5-5.1)
[2021-08-08] MEDS: NOREPINEPHRINE/D5W 4 MG/250 ML PLCT IV SCH ×3 (07:06→23:28)
--- NOTE | 2021-08-08 08:43 | Surgery Progress Note ---
Date of Service August 08, 2021 Assessment & Plan (1) Anastomotic leak of intestine: Plan: He is overall doing well postop day 2 from his reexploration and ileostomy mucous fistula creation His hemoglobin is trending down and is 8.1 this morning WBC is trending down, continue IV antibiotics Would reach out to [facility] to see if they can accept him for IVC filter placement He has no ostomy output, would continue his NG tube and n.p.o. status at this time We will continue to follow (2) Pneumoperitoneum: (3) Hypercoagulable state: Admission and Anticipated Discharge Date Admission Date: August 06, 2021 Subjective Patient seen and examined. No acute events overnight. NG tube in place, denies any nausea or vomiting. Afebrile. No ileostomy output. Physical Exam Constitutional: WD/WN, vitals as above Gastrointestinal (Abdomen): Soft, appropriately tender Ileostomy with bowel sweat, otherwise no output Results & Data ([facility]) Vital Signs (Past 12 Hours) Vital Signs Temp Pulse Resp BP Pulse Ox 08/08/21 06:00 94 H 21 108/58 L 94 08/08/21 05:00 101 H 24 95/55 L 91 08/08/21 04:00 37.1 C 95 H 24 118/59 L 95 08/08/21 03:45 110/59 L 08/08/21 03:00 93 H 23 109/58 L 95 08/08/21 02:00 89 28 H 97/54 L 93 08/08/21 01:00 98 H 23 90/48 L 93 08/08/21 00:15 37.1 C 08/08/21 00:00 96 H 22 106/57 L 93 08/07/21 23:00 94 H 21 91/49 L 93 08/07/21 22:00 37.4 C 96 H 22 94/50 L 95 08/07/21 21:15 91 H 23 109/51 L 93 08/07/21 20:57 85 22 100/54 L 94 PG Care Time/CCT Total # of Minutes Spent Total Time Spent with Patient: Total time spent is greater than 50% in coordination of care (as documented) at patient's floor/unit and/or counseling patient: Coding Level of Care Code None Diagnoses Anastomotic leak of intestine K91.89 Pneumoperitoneum K66.8 Hypercoagulable state D68.59
[2021-08-08] MEDS ORDERED: ALBUMIN 5% 250 ML IV ONE (08:54)
[2021-08-08] MEDS ORDERED: CALCIUM GLUCONATE 10% 2,000 MG in DEXTROSE 5% 50 ML IV ONE (10:01)
[2021-08-08] MEDS ORDERED: STAT IV STA (10:01)
[2021-08-08] MEDS ORDERED: SODIUM CHLORIDE 0.9% 500 ML IV SCH (10:15)
[2021-08-08] MEDS: SODIUM CHLORIDE 0.9% 1,000 ML IV SCH ×2 (11:03→23:28)
[2021-08-08 12:35] LABS: Basophils # (auto) 0.01 K/uL (0-0.2); Basophils % (auto) 0.1 %; Eosinophils # (auto) 0.18 K/uL (0-0.5); Hematocrit (blood only) 23.3 % (42-52); Hemoglobin 7.7 g/dL (14.0-18.0); Immature Granulocytes # (auto) 0.12 K/uL (0.00-0.02); Immature Granulocytes % (auto) 0.6 %; Lymphocytes # (auto) 1.21 K/uL (1.2-3.4); Lymphocytes % (auto) 6.4 %; Mean Corpuscular Hemoglobin 29.7 pg (25-34); Mean Platelet Volume 8.4 fL (7.4-10.4); Monocytes # (auto) 0.98 K/uL (0.11-0.59); Monocytes % (auto) 5.2 %; Neutrophils # (auto) 16.29 K/uL (1.4-6.5); Neutrophils % (auto) 86.7 %; Platelet Count 468 K/uL (130-400); RDW Coefficient of Variation 14.9 % (11.5-14.5); RDW Standard Deviation 48.9 fL (36.4-46.3); Red Blood Count 2.59 M/uL (4.7-6.1); White Blood Count 18.79 K/uL (4.8-10.8)
--- NOTE | 2021-08-08 12:57 | Hospitalist Progress Note ---
Date of Service August 08, 2021 Assessment & Plan (1) Anastomotic leak of intestine: Plan: Anastomotic leak with abscess Status Post elective laparoscopic assisted right hemicolectomy for intramucosal tumor found on colonoscopy and biopsy.07/26/2021 Worsening abdominal pain since discharge from the hospital on 07/30/2021 --CT ABD:CT findings most characteristic of an anastomotic leak with an abscess seen along the right paracolic gutter. There is also extensive free air as seen radiographically. There is mild to moderate ascites present with fluid over the dome of the liver and extending down both paracolic gutters and into the pelvis. Thrombus within the superior mesenteric vein. Appreciate surgery input and recommendation Status post:: Laparotomy, Colon Resection with Ostomy Placement on 08/06/2021 Gentle IV fluids given mildly volume overload status Has been on Zosyn for possible intra-abdominal/intestinal infection Blood cultures have been taken Minimal abdominal distention and pain Bowel has not moved Appendiceal goblet cell adenocarcinoma of colon Status Post elective laparoscopic assisted right hemicolectomy for intramucosal tumor found on colonoscopy and biopsy.07/26/2021 Admitted with increasing abdominal pain and anastomotic leak as above Status post exploratory laparotomy, colon resection and ostomy placement on 08/06/2021 Has thrombus within the superior mesenteric vein as on CT scan of the abdomen and pelvis Management as per surgery 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 No additional pulmonary emboli identified although lower lobe pulmonary arteries suboptimally opacified. --CT ABD: mild to moderate ascites present with fluid over the dome of the liver and extending down both paracolic gutters and into the pelvis. Thrombus within the superior mesenteric vein. --Venous Doppler:Nonobstructive left popliteal vein thrombus. -Echo of the heart showed-LV cavity is small, moderate concentric LVH, LV is hyperdynamic, EF more than 70%, RV is normal in size and function, no gross valvular abnormalities and no pulmonary hypertension -Discussed with surgeon and portfolio analyst -We will start low-dose heparin without bolus this evening -Monitor H&H to document evidence of bleeding -Intravenous heparin with low-dose without bolus was started last evening and is on hold right now because of drop in hemoglobin from 10-8.1 -The primary service and the portfolio analyst wanted to have the patient transferred for IVC filter placement Transfer status -Discussed with portfolio analyst Dr. Love in [place]-complicated case with recent surgery and not knowing the source of bleeding if it happened following heparin administration and seems to be a soft case for transfer just for IVC filter placement who will need anticoagulation eventually given the hypercoagulable state from cancer. Transfer declined and was advised to repeat hemoglobin tomorrow and restart low-dose heparin without bolus. If any drop in hemoglobin to find the source of bleeding and at that time the local vascular surgeon can determine the need for IVC filter placement which will not affect any results of superior mesenteric vein thrombus. LUCY Creatinine is noted to be high on admission at 1.64 and that has been increasing to 1.85 Has been getting intravenous fluid- cautious amount Cumulative balance is 466 3 mL We will monitor BMP-creatinine has been increasing HTN Hold benazepril, HCTZ today Monitor BP-remains at the lower side Received intravenous albumin yesterday Has been requiring pressor agents to maintain blood pressure otherwise remains reasonably stable Hepatitis C Completed treatment as per patient Morbid obesity BMI 41 DVT Px: SCDs for now Re: Surgery Will be starting low-dose heparin without bolus in the evening Heparin has been on hold Code Status Full Code Admission and Anticipated Discharge Date Admission Date: August 06, 2021 Subjective 08/07/2021 The patient was seen and examined in ICU He has been feeling a little better and complains to have a lot of abdominal distention and pain Denies any chest pain with breathing or at rest, no palpitation and no shortness of breath No fever and/or chills 08/08/2021 The patient was seen and examined in ICU He complains to have some abdominal distention and pain but denies any other significant symptoms Denies any cough, hemoptysis, chest pain or shortness of breath Bowel has not moved yet Review of Systems Review of Systems: All systems reviewed and are unremarkable except as noted below Respiratory: No shortness of breath at rest Gastrointestinal: Abdominal distention, status post laparoscopic right hemicolectomy Physical Exam Physical Exam: Lying in bed with minimal distress and anxiety Constitutional: well developed, well nourished, + ill appearing and + obese Eyes: PERRL, conjunctivae normal, anicteric sclerae ENMT: external ear and nose normal, oropharynx normal Neck: trachea midline, no thyromegaly Respiratory: no respiratory distress Auscultation: + crackles (Minimal crackles at the bases) Cardiovascular: Rate/Rhythm: regular rate and regular rhythm; not tachycardic Heart Sounds: normal S1 and normal S2; no murmur Extremities: + edema (1+ edema bilaterally) Gastrointestinal (Abdomen): Inspection/Auscultation: + abdomen distended; + abnormal bowel sounds (Decreased bowel sound) Percussion/Palpation: + abdomen tender (All over) and abdomen soft Musculoskeletal: No acute arthritis in any joint Neurologic: normal touch/pain/proprioception and moves all extremities Psychiatric: A+Ox3, euthymic affect Lymphatic: no cervical or axillary lymphadenopathy Results & Data Results & Data ([facility]) Vital Signs (Past 12 Hours) Vital Signs Temp Pulse Resp BP Pulse Ox 08/08/21 06:00 94 H 21 108/58 L 94 08/08/21 05:00 101 H 24 95/55 L 91 08/08/21 04:00 37.1 C 95 H 24 118/59 L 95 08/08/21 03:45 110/59 L 08/08/21 03:00 93 H 23 109/58 L 95 08/08/21 02:00 89 28 H 97/54 L 93 08/08/21 01:00 98 H 23 90/48 L 93 Laboratory Results Short CBC 08/07/21 08/08/21 08/08/21 Range/Units 17:58 04:56 12:06 WBC 23.97 H 19.65 H 18.79 H (4.8-10.8) K/uL Hgb 9.3 L 8.1 L 7.7 L (14.0-18.0) g/dL Hct 27.6 L 24.2 L 23.3 L (42-52) % Plt Count 507 H 475 H 468 H (130-400) K/uL BMP 08/07/21 08/08/21 17:06 04:56 Sodium 131 L 133 L Potassium 4.3 3.9 Chloride 95 L 96 L Carbon Dioxide 26 29 BUN 31 H 35 H Creatinine 2.21 H D 2.15 H Glucose 150 H 145 H Calcium 7.3 L 7.2 L Liver Function 08/07/21 Range/Units 17:06 Total Bilirubin 1.1 H (0.2-1.0) mg/dl AST 17 (13-39) U/L ALT 23 (7-52) U/L Alkaline Phosphatase 42 (34-104) U/L Albumin 2.7 L (3.4-5.0) gm/dl Medications Administered Current Inpatient Medications Diphenhydramine HCl (Diphenhydramine Capsule 25 Mg Cap) 25 mg PO Q4H PRN PRN Reason: hives, itching or insomnia Stop: 09/05/21 18:51 Heparin Sodium/Dextrose (Heparin Iv Adult Wt-Based Low-Dose *No* Bolus Protocol) 1 ea IV Q15M SIM; Protocol Last Admin: 08/07/21 19:36 Dose: Not Given Documented by: Hydromorphone HCl (Hydromorphone Inj 0.5 Mg/0.5 Ml Syr) 0.5 mg IV Q2H PRN PRN Reason: Pain Stop: 08/21/21 00:44 Last Admin: 08/08/21 11:07 Dose: 0.5 mg Documented by: Piperacillin Sod/Tazobactam (Sod 4.5 gm/ Dextrose) 120 mls @ 30 mls/hr IV Q8H SIM; Protocol Stop: 08/16/21 19:29 Last Admin: 08/08/21 11:22 Dose: 30 mls/hr Documented by: Norepinephrine Bitartrate (Levophed/D5w) 4 mg in 250 mls @ 26.081 mls/hr IV .Q9H36M SIM; Protocol Stop: 09/05/21 22:44 Last Titration: 08/08/21 11:03 Dose: 0.01 mcg/kg/min, 5.2 mls/hr Documented by: Heparin Sodium/Dextrose (Heparin Sodium/Dextrose) 25,000 units in 500 mls @ 0 mls/hr IV .Q0M SIM; Protocol Stop: 09/06/21 17:14 Sodium Chloride (Nss) 1,000 mls @ 80 mls/hr IV .[id number] SIM Stop: 09/07/21 10:13 Last Admin: 08/08/21 11:03 Dose: 80 mls/hr Documented by: Ondansetron HCl (Ondansetron Inj 2 Mg/Ml 2 Ml Vial) 4 mg IV Q6H PRN PRN Reason: Nausea Stop: 09/05/21 18:51 Last Admin: 08/07/21 18:52 Dose: 4 mg Documented by:
[2021-08-08 13:09] LABS: Anisocytosis Present; Hypochromasia Present; Polychromasia 1+
[2021-08-08] MEDS: ONDANSETRON INJ 2 MG/ML 2 ML VIAL IV PRN (17:17)
--- NOTE | 2021-08-08 19:20 | Electrocardiogram Report ---
Test Reason : Blood Pressure : / mmHG Vent. Rate : 087 BPM Atrial Rate : 087 BPM P-R Int : 182 ms QRS Dur : 100 ms QT Int : 370 ms P-R-T Axes : 018 -06 004 degrees QTc Int : 445 ms Normal sinus rhythm Normal ECG When compared with ECG of 06-AUG-2021 11:16, Premature atrial complexes are no longer Present Criteria for Septal infarct are no longer Present Confirmed by Shashank Ferrari ([id number] on 08/08/2021 7:20:00 PM Referred By: Caroline Park Confirmed By:Shashank Ferrari
--- NOTE | 2021-08-08 21:38 | Electrocardiogram Report ---
Test Reason : Blood Pressure : / mmHG Vent. Rate : 093 BPM Atrial Rate : 093 BPM P-R Int : 194 ms QRS Dur : 104 ms QT Int : 364 ms P-R-T Axes : 043 001 016 degrees QTc Int : 452 ms Sinus rhythm with Premature atrial complexes Otherwise normal ECG When compared with ECG of 08-AUG-2021 05:57, (unconfirmed) No significant change was found Confirmed by Shashank Ferrari ([id number]) on 08/08/2021 9:38:20 PM Referred By: Caroline Park Confirmed By:Shashank Ferrari
[2021-08-09] MEDS: HYDROmorphone INJ 0.5 MG/0.5 ML SYR IV PRN ×9 (00:14→22:20)
[2021-08-09] MEDS: ONDANSETRON INJ 2 MG/ML 2 ML VIAL IV PRN ×2 (00:16→13:28)
[2021-08-09] MEDS: PIPERACILLIN/TAZOBACTAM 4.5 GM in DEXTROSE 5% 100 ML IV SCH ×3 (02:34→20:06)
[2021-08-09 05:24] LABS: Basophils # (auto) 0.01 K/uL (0-0.2); Basophils % (auto) 0.1 %; Eosinophils # (auto) 0.37 K/uL (0-0.5); Eosinophils % (auto) 2.5 %; Hematocrit (blood only) 22.9 % (42-52); Hemoglobin 7.6 g/dL (14.0-18.0); Immature Granulocytes # (auto) 0.06 K/uL (0.00-0.02); Immature Granulocytes % (auto) 0.4 %; Lymphocytes # (auto) 1.32 K/uL (1.2-3.4); Lymphocytes % (auto) 8.7 %; Mean Corpuscular Hemoglobin 30.3 pg (25-34); Mean Corpuscular Hgb Conc 33.2 g/dL (32-36); Mean Corpuscular Volume 91.2 fL (80-100); Mean Platelet Volume 8.1 fL (7.4-10.4); Monocytes # (auto) 0.83 K/uL (0.11-0.59); Monocytes % (auto) 5.5 %; Neutrophils # (auto) 12.51 K/uL (1.4-6.5); Neutrophils % (auto) 82.8 %; Platelet Count 484 K/uL (130-400); RDW Coefficient of Variation 14.8 % (11.5-14.5); RDW Standard Deviation 48.9 fL (36.4-46.3); Red Blood Count 2.51 M/uL (4.7-6.1)
[2021-08-09 05:35] LABS: INR 1.1 (0.9-1.1); Prothrombin Time 11.9 Seconds (9.0-12.0)
[2021-08-09 05:44] LABS: Hypochromasia Present; Polychromasia 1+
[2021-08-09 05:47] LABS: BUN Creatinine Ratio 27.1 (10-20); Calcium 8.2 mg/dl (8.5-10.1); Creatinine Clr Calc Pharmacy 78.4 ml/min; Est GFR (African American) 63.7 ml/min; Est GFR (Non-African American) 54.9 ml/min; Magnesium 2.4 mg/dl (1.7-2.4); Phosphorus 2.7 mg/dl (2.5-4.9); Potassium 3.9 mmol/L (3.5-5.1)
[2021-08-09] MEDS: SODIUM CHLORIDE 0.9% 1,000 ML IV SCH ×2 (06:39→07:40)
[2021-08-09] MEDS: NOREPINEPHRINE/D5W 4 MG/250 ML PLCT IV SCH (06:39)
--- NOTE | 2021-08-09 08:15 | Electrocardiogram Report ---
Test Reason : Blood Pressure : / mmHG Vent. Rate : 093 BPM Atrial Rate : 093 BPM P-R Int : 192 ms QRS Dur : 110 ms QT Int : 388 ms P-R-T Axes : 029 001 019 degrees QTc Int : 482 ms Sinus rhythm with Premature atrial complexes Abnormal ECG When compared with ECG of 07-AUG-2021 04:52, Premature atrial complexes are now Present Confirmed by Davin Rod ([id number]) on 08/09/2021 8:15:11 AM Referred By: Caroline Park Confirmed By:Davin Rod
[2021-08-09] MEDS ORDERED: SODIUM CHLORIDE 0.9% 250 ML IV PRN (08:22)
[2021-08-09] MEDS ORDERED: Heparin IV Adult Wt-Based Low-Dose *NO* Bolus Protocol IV SCH (08:30)
--- NOTE | 2021-08-09 09:07 | Electrocardiogram Report ---
Test Reason : Blood Pressure : / mmHG Vent. Rate : 087 BPM Atrial Rate : 087 BPM P-R Int : 192 ms QRS Dur : 106 ms QT Int : 386 ms P-R-T Axes : 020 -04 008 degrees QTc Int : 464 ms Poor data quality, interpretation may be adversely affected Sinus rhythm with Premature atrial complexes Otherwise normal ECG When compared with ECG of 08-AUG-2021 14:05, No significant change was found Confirmed by Davin Rod ([id number]) on 08/09/2021 9:07:33 AM Referred By: Caroline Park Confirmed By:Davin Rod
[2021-08-09] MEDS: HEPARIN SODIUM/DEXTROSE 25,000 UNITS/500 ML BAG IV SCH (09:31)
--- NOTE | 2021-08-09 10:11 | Critical Care Progress Note ---
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 He was also found to have a right upper lobe pulmonary embolism and lower extremity DVT. Neurologic: Mentating well. Pain control per general surgery ordered. Pulmonary: Encourage incentive spirometry. Aspiration precautions. Cardiovascular: Hold home antihypertensives at this time. Monitor telemetry status. Gastrointestinal: Status post ileostomy with mucous fistula and abscess drainage. Patient with history of recently diagnosed adenocarcinoma of the appendix with local metastatic disease to the lymph nodes. Management of NG tube per general surgery. Renal: Continue Da Silva for I's and O's Infectious disease: Blood cultures. Zosyn empirically. Hematologic: Patient with retroperitoneal bleed intraoperatively. Hemoglobin stable. Hemodynamically stable at this time. Patient hypercoagulable. He has an acute right upper lobe PE, lower extremity DVT and mesenteric vein thrombus. -Discussed with General Surgery, >3 days post-op, stable for Systemic anticoagulation: Low-dose Heparin - Vascular surgery to evaluate for IVC filter. - Transfuse 1 unit packed red blood cells - H&H twice daily Endocrine: Maintain euglycemia. Lines and tubes: Da Silva catheter in place. Peripheral IVs. VTE prophylaxis: SCDs. CODE STATUS: Full code Family at bedside: None at bedside. Patient was discussed on multidisciplinary rounds with general surgery Admission and Anticipated Discharge Date Admission Date: August 06, 2021 Subjective Feels very sore from surgery. Denies chest pain shortness of breath Physical Exam Physical Exam: General: Alert. nontoxic. Skin: Warm, dry, Head: Atraumatic Ears, nose, mouth and throat: airway patent Cardiovascular: Normal peripheral perfusion Respiratory: no respiratory distress Gastrointestinal: Abdominal binder present, no shadowing on dressings. NG tube present hypoactive bowel sounds tenderness with palpation Musculoskeletal: No deformity Results & Data Results & Data ([facility]) Vital Signs (Past 12 Hours) Vital Signs Temp Pulse Resp BP Pulse Ox 08/09/21 06:00 91 H 16 108/50 L 96 08/09/21 05:00 87 19 108/58 L 91 08/09/21 04:00 90 18 105/59 L 08/09/21 03:00 89 19 98/51 L 94 08/09/21 02:00 87 17 109/59 L 95 08/09/21 01:00 90 19 94/56 L 96 08/09/21 00:00 36.8 C 90 20 105/50 L 94 08/08/21 23:00 91 H 17 108/64 92 Critical Care Results & Data Vital Signs (Past 12 Hours) Vital Signs Temp Pulse Resp BP Pulse Ox 08/09/21 06:00 91 H 16 108/50 L 96 08/09/21 05:00 87 19 108/58 L 91 08/09/21 04:00 90 18 105/59 L 08/09/21 03:00 89 19 98/51 L 94 08/09/21 02:00 87 17 109/59 L 95 08/09/21 01:00 90 19 94/56 L 96 08/09/21 00:00 36.8 C 90 20 105/50 L 94 08/08/21 23:00 91 H 17 108/64 92 Lab & Micro Results (Past 24 Hours) RBC 2.51 M/uL (4.7-6.1) L 08/09/21 WBC 15.10 K/uL (4.8-10.8) H 08/09/21 Hgb 7.6 g/dL (14.0-18.0) L 08/09/21 Hct 22.9 % (42-52) L 08/09/21 MCV 91.2 fL (80-100) 08/09/21 MCH 30.3 pg (25-34) 08/09/21 MCHC 33.2 g/dL (32-36) 08/09/21 RDW Standard Deviation 48.9 fL (36.4-46.3) H 08/09/21 RDW Coefficient of Variation 14.8 % (11.5-14.5) H 08/09/21 Plt Count 484 K/uL (130-400) H 08/09/21 MPV 8.1 fL (7.4-10.4) 08/09/21 Neutrophils (%) (Auto) 82.8 % 08/09/21 Lymphocytes (%) (Auto) 8.7 % 08/09/21 Monocytes # (Auto) 0.83 K/uL (0.11-0.59) H 08/09/21 Eosinophils # (Auto) 0.37 K/uL (0-0.5) 08/09/21 Immature Granulocyte % (Auto) 0.4 % 08/09/21 Neutrophils # (Auto) 12.51 K/uL (1.4-6.5) H 08/09/21 Lymphocytes # (Auto) 1.32 K/uL (1.2-3.4) 08/09/21 Monocytes # (Auto) 0.83 K/uL (0.11-0.59) H 08/09/21 Eosinophils # (Auto) 0.37 K/uL (0-0.5) 08/09/21 Basophils # (Auto) 0.01 K/uL (0-0.2) 08/09/21 Immature Granulocyte # (Auto) 0.06 K/uL (0.00-0.02) H 08/09/21 Polychromasia 1+ 08/09/21 Hypochromasia Present 08/09/21 Na 136 mmol/L (136-145) 08/09/21 K 3.9 mmol/L (3.5-5.1) 08/09/21 Cl 97 mmol/L (98-107) L 08/09/21 CO2 33 mmol/L (21-32) H 08/09/21 Anion Gap 6 (3-11) 08/09/21 BUN 36 mg/dl (6-23) H 08/09/21 Creatinine 1.33 mg/dl (0.6-1.4) 08/09/21 Estimated GFR ( Amer) 63.7 ml/min 08/09/21 Estimated GFR (Non-Af Amer) 54.9 ml/min 08/09/21 BUN/Creatinine Ratio 27.1 (10-20) H 08/09/21 Glu 127 mg/dl (70-99(Fasting)) H 08/09/21 Ca 8.2 mg/dl (8.5-10.1) L 08/09/21 Phosphorus Level 2.7 mg/dl (2.5-4.9) 08/09/21 Mg 2.4 mg/dl (1.7-2.4) 08/09/21 05:08 08/09/21 Calcium Level 8.2 mg/dl (8.5-10.1) L 08/09/21 05:08 08/09/21 Prothromb Time International Ratio 1.1 (0.9-1.1) 08/09/21 05:08 08/09/21 Microbiology 08/06/21 18:57 Aerobic Blood Culture - Preliminary Blood No growth in Aerobic bottle after 48 hours. Anaerobic Blood Culture - Preliminary No growth in Anaerobic bottle after 48 hours. 08/06/21 19:06 Aerobic Blood Culture - Preliminary Blood No growth in Aerobic bottle after 48 hours. Anaerobic Blood Culture - Preliminary No growth in Anaerobic bottle after 48 hours. I & O Totals 24 Hours 08/08/21 08/09/21 08/10/21 06:59 06:59 06:59 Intake Total 4607.500 / 4607.500 2414.320 / 2414.320 Output Total 1690 / 1690 2725 / 2725 Balance 2917.500 / 2917.500 -310.680 / -310.680 Cumulative 08/06/21 10:24 thru 08/09/21 06:25 Intake Total 98180.027 Output Total 6070 Balance 6287.027 RT Ventilator Mngmt (Last Documented) Ventilator Ordered Settings Respiratory Rate 16 08/09/21 06:00 Fraction of Inspired Oxygen 2 08/08/21 08:00 Ventilator - PT Measurements Respiratory Rate 16 Coding Level of Care Code 88647 Subseq Hosp Care Lvl 3 Diagnoses Anastomotic leak of intestine K91.89 Pneumoperitoneum K66.8 Superior mesenteric vein thrombosis K55.069 Acute pulmonary embolism I26.99 Acute cor pulmonale presence: unspecified Pulmonary embolism type: unspecified Anemia D64.9 Anemia type: unspecified type 

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
[2021-08-09] MEDS: PANTOprazole 40 MG in SYRINGE 0 ML IV SCH (11:30)
--- NOTE | 2021-08-09 12:54 | Hospitalist Progress Note ---
Date of Service August 09, 2021 Assessment & Plan (1) Anastomotic leak of intestine: Plan: Anastomotic leak with abscess Status Post elective laparoscopic assisted right hemicolectomy for intramucosal tumor found on colonoscopy and biopsy.07/26/2021 Worsening abdominal pain since discharge from the hospital on 07/30/2021 --CT ABD:CT findings most characteristic of an anastomotic leak with an abscess seen along the right paracolic gutter. There is also extensive free air as seen radiographically. There is mild to moderate ascites present with fluid over the dome of the liver and extending down both paracolic gutters and into the pelvis. Thrombus within the superior mesenteric vein. Appreciate surgery input and recommendation Status post:: Laparotomy, Colon Resection with Ostomy Placement on 08/06/2021 Gentle IV fluids given mildly volume overload status Has been on Zosyn for possible intra-abdominal/intestinal infection Blood cultures have been taken Minimal abdominal distention and pain Bowel has not moved NG tube in situ, abdomen remains mildly distended but not painful Management as per surgeon Appendiceal goblet cell adenocarcinoma of colon Status Post elective laparoscopic assisted right hemicolectomy for intramucosal tumor found on colonoscopy and biopsy.07/26/2021 Admitted with increasing abdominal pain and anastomotic leak as above Status post exploratory laparotomy, colon resection and ostomy placement on 08/06/2021 Has thrombus within the superior mesenteric vein as on CT scan of the abdomen and pelvis Management as per surgery 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 No additional pulmonary emboli identified although lower lobe pulmonary arteries suboptimally opacified. --CT ABD: mild to moderate ascites present with fluid over the dome of the liver and extending down both paracolic gutters and into the pelvis. Thrombus within the superior mesenteric vein. --Venous Doppler:Nonobstructive left popliteal vein thrombus. -Echo of the heart showed-LV cavity is small, moderate concentric LVH, LV is hyperdynamic, EF more than 70%, RV is normal in size and function, no gross valvular abnormalities and no pulmonary hypertension -Discussed with surgeon and irrigation laborer -We will start low-dose heparin without bolus this evening -Monitor H&H to document evidence of bleeding -Intravenous heparin with low-dose without bolus was started last evening and is on hold right now because of drop in hemoglobin from 10-8.1 -The primary service and the irrigation laborer wanted to have the patient transferred for IVC filter placement -Appreciate vascular surgery input and recommendation -Low-dose heparin has been started from today and will monitor CBC Transfer status -Discussed with irrigation laborer Dr. Love in [place]-complicated case with recent surgery and not knowing the source of bleeding if it happened following heparin administration and seems to be a soft case for transfer just for IVC filter placement who will need anticoagulation eventually given the hypercoagulable state from cancer. Transfer declined and was advised to repeat hemoglobin tomorrow and restart low-dose heparin without bolus. If any drop in hemoglobin to find the source of bleeding and at that time the local vascular surgeon can determine the need for IVC filter placement which will not affect any results of superior mesenteric vein thrombus. LUCY Creatinine is noted to be high on admission at 1.64 and that has been increasing to 1.85 Has been getting intravenous fluid- cautious amount Cumulative balance is 466 3 mL We will monitor BMP-creatinine has been increasing Creatinine has been normalized HTN Hold benazepril, HCTZ today Monitor BP-remains at the lower side Received intravenous albumin yesterday Has been requiring pressor agents to maintain blood pressure otherwise remains reasonably stable Hepatitis C Completed treatment as per patient Morbid obesity BMI 41 DVT Px: SCDs for now Re: Surgery Will be starting low-dose heparin without bolus in the evening Heparin has been on hold-heparin is restarted from 08/09/2021 Code Status Full Code Admission and Anticipated Discharge Date Admission Date: August 06, 2021 Subjective 08/07/2021 The patient was seen and examined in ICU He has been feeling a little better and complains to have a lot of abdominal distention and pain Denies any chest pain with breathing or at rest, no palpitation and no shortness of breath No fever and/or chills 08/08/2021 The patient was seen and examined in ICU He complains to have some abdominal distention and pain but denies any other significant symptoms Denies any cough, hemoptysis, chest pain or shortness of breath Bowel has not moved yet 08/09/2021 The patient was seen and examined in ICU He remains stable without any significant symptoms Has had NG tube placement and abdomen remains mildly distended without significant pain Bowel is not moved Denies any chest pain, palpitation or shortness of breath Review of Systems Review of Systems: All systems reviewed and are unremarkable except as noted below Respiratory: No shortness of breath at rest Gastrointestinal: Abdominal distention, status post laparoscopic right hemicolectomy Physical Exam Physical Exam: Lying in bed with minimal distress and anxiety Constitutional: well developed, well nourished, + ill appearing and + obese Eyes: PERRL, conjunctivae normal, anicteric sclerae ENMT: external ear and nose normal, oropharynx normal Neck: trachea midline, no thyromegaly Respiratory: no respiratory distress Auscultation: + crackles (Minimal crackles at the bases) Cardiovascular: Rate/Rhythm: regular rate and regular rhythm; not tachycardic Heart Sounds: normal S1 and normal S2; no murmur Extremities: + edema (1+ edema bilaterally) Gastrointestinal (Abdomen): Inspection/Auscultation: + abdomen distended; + abnormal bowel sounds (Decreased bowel sound) Percussion/Palpation: + abdomen tender (All over) and abdomen soft Musculoskeletal: No acute arthritis in any joint Neurologic: normal touch/pain/proprioception and moves all extremities Psychiatric: A+Ox3, euthymic affect Lymphatic: no cervical or axillary lymphadenopathy Results & Data Results & Data ([facility]) Vital Signs (Past 12 Hours) Vital Signs Temp Pulse Resp BP Pulse Ox 08/09/21 12:37 36.8 C 94 H 14 104/59 L 91 08/09/21 12:10 89 14 101/57 L 94 08/09/21 12:00 88 18 101/57 L 95 08/09/21 11:45 91 H 18 94/59 L 95 08/09/21 11:40 36.8 C 89 14 110/56 L 93 08/09/21 11:30 94 H 18 110/56 L 95 08/09/21 11:25 36.8 C 93 H 14 102/57 L 93 08/09/21 11:24 92 H 22 102/57 L 94 08/09/21 11:15 92 H 19 113/60 95 08/09/21 11:10 36.7 C 92 H 14 113/60 95 08/09/21 11:09 92 H 19 109/62 94 08/09/21 11:00 92 H 23 107/64 95 08/09/21 10:30 89 23 112/60 94 08/09/21 10:00 84 22 107/56 L 95 08/09/21 09:30 90 15 97/58 L 96 08/09/21 09:00 87 19 98/57 L 94 08/09/21 08:30 90 16 98/60 L 93 08/09/21 08:00 92 H 14 109/61 93 08/09/21 07:30 88 19 103/60 95 08/09/21 07:00 89 21 100/58 L 95 08/09/21 06:30 81 17 103/59 L 95 08/09/21 06:00 91 H 16 108/50 L 96 08/09/21 05:00 87 19 108/58 L 91 08/09/21 04:00 90 18 105/59 L 08/09/21 03:00 89 19 98/51 L 94 08/09/21 02:00 87 17 109/59 L 95 08/09/21 01:00 90 19 94/56 L 96 Laboratory Results Short CBC 08/09/21 Range/Units 05:08 WBC 15.10 H (4.8-10.8) K/uL Hgb 7.6 L (14.0-18.0) g/dL Hct 22.9 L (42-52) % Plt Count 484 H (130-400) K/uL BMP 08/09/21 05:08 Sodium 136 Potassium 3.9 Chloride 97 L Carbon Dioxide 33 H BUN 36 H Creatinine 1.33 D Glucose 127 H Calcium 8.2 L Medications Administered Current Inpatient Medications Diphenhydramine HCl (Diphenhydramine Capsule 25 Mg Cap) 25 mg PO Q4H PRN PRN Reason: hives, itching or insomnia Stop: 09/05/21 18:51 Hydromorphone HCl (Hydromorphone Inj 0.5 Mg/0.5 Ml Syr) 0.5 mg IV Q2H PRN PRN Reason: Pain Stop: 08/21/21 00:44 Last Admin: 08/09/21 10:59 Dose: 0.5 mg Documented by: Piperacillin Sod/Tazobactam (Sod 4.5 gm/ Dextrose) 120 mls @ 30 mls/hr IV Q8H [facility]; Protocol Stop: 08/16/21 19:29 Last Admin: 08/09/21 11:30 Dose: 30 mls/hr Documented by: Norepinephrine Bitartrate (Levophed/D5w) 4 mg in 250 mls @ 26.081 mls/hr IV .[id number] [facility]; Protocol Stop: 09/05/21 22:44 Last Admin: 08/09/21 06:39 Dose: Not Given Documented by: Sodium Chloride (Nss) 1,000 mls @ 80 mls/hr IV .[id number] [facility] Stop: 09/07/21 10:13 Last Admin: 08/09/21 07:40 Dose: 80 mls/hr Documented by: Heparin Sodium/Dextrose (Heparin Sodium/Dextrose) 25,000 units in 500 mls @ 20 mls/hr IV .Q24H [facility]; Protocol Stop: 09/08/21 08:29 Last Admin: 08/09/21 09:31 Dose: 1,000 units/hr, 20 mls/hr Documented by: Sodium Chloride (Nss) 250 mls @ 15 mls/hr IV .[id number] PRN PRN Reason: For Transfusion Stop: 08/09/21 18:23 Pantoprazole Sodium 40 mg/ (Syringe) 10 mls @ 5 mls/min IV DAILY@1100 [facility] Stop: 09/08/21 10:59 Last Admin: 08/09/21 11:30 Dose: 5 mls/min Documented by: Ondansetron HCl (Ondansetron Inj 2 Mg/Ml 2 Ml Vial) 4 mg IV Q6H PRN PRN Reason: Nausea Stop: 09/05/21 18:51 Last Admin: 08/09/21 00:16 Dose: 4 mg Documented by:
--- NOTE | 2021-08-09 13:39 | Surgery Progress Note ---
Date of Service August 09, 2021 Assessment & Plan (1) Anastomotic leak of intestine: Plan: He is overall doing well postop day 3 from his reexploration and ileostomy mucous fistula creation Continue NG tube/n.p.o./IV fluid hydration Trending H&H Will restart heparin drip May need blood transfusion Out of bed to chair Continue to follow (2) Pneumoperitoneum: (3) Hypercoagulable state: Admission and Anticipated Discharge Date Admission Date: August 06, 2021 Subjective POD#3 s/p exploratory laparotomy, resection of leaking anastomosis, ileostomy and mucous fistula placement. He is doing fairly well. His pain is controlled with pain medication. His heparin drip has been on hold due to drop in hemoglobin. He has not had any blood transfusion yet. Consideration of transfer to [place] for filter placement yesterday was put on hold. He denies nausea or vomiting. Physical Exam Constitutional: WD/WN, vitals as above + morbidly obese; no acute distress Eyes: PERRL, conjunctivae normal, anicteric sclerae Respiratory: normal respiratory effort; no respiratory distress and no labored breathing Gastrointestinal (Abdomen): Inspection/Auscultation: abdomen normal to inspection, + abdomen distended (Mild distention), + abdominal surgical scar (Without erythema or discharge) and + abdominal surgical drain present (Serosanguineous drainage) Percussion/Palpation: + abdomen tender (Diffusely) and abdomen soft; no guarding and abdomen not rigid Ileostomy pink and viable, bowel sweat in bag Musculoskeletal: Extremities: no cyanosis and no clubbing Skin: no rashes, warm and dry Psychiatric: A+Ox3, euthymic affect Results & Data ([facility]) Vital Signs (Past 12 Hours) Vital Signs Temp Pulse Resp BP Pulse Ox 08/09/21 12:37 36.8 C 94 H 14 104/59 L 91 08/09/21 12:10 89 14 101/57 L 94 08/09/21 12:00 88 18 101/57 L 95 08/09/21 11:45 91 H 18 94/59 L 95 08/09/21 11:40 36.8 C 89 14 110/56 L 93 08/09/21 11:30 94 H 18 110/56 L 95 08/09/21 11:25 36.8 C 93 H 14 102/57 L 93 08/09/21 11:24 92 H 22 102/57 L 94 08/09/21 11:15 92 H 19 113/60 95 08/09/21 11:10 36.7 C 92 H 14 113/60 95 08/09/21 11:09 92 H 19 109/62 94 08/09/21 11:00 92 H 23 107/64 95 08/09/21 10:30 89 23 112/60 94 08/09/21 10:00 84 22 107/56 L 95 08/09/21 09:30 90 15 97/58 L 96 08/09/21 09:00 87 19 98/57 L 94 08/09/21 08:30 90 16 98/60 L 93 08/09/21 08:00 92 H 14 109/61 93 08/09/21 07:30 88 19 103/60 95 08/09/21 07:00 89 21 100/58 L 95 08/09/21 06:30 81 17 103/59 L 95 08/09/21 06:00 91 H 16 108/50 L 96 08/09/21 05:00 87 19 108/58 L 91 08/09/21 04:00 90 18 105/59 L 08/09/21 03:00 89 19 98/51 L 94 08/09/21 02:00 87 17 109/59 L 95
[2021-08-09 16:08] LABS: Partial Thromboplastin Ratio 1.1; Partial Thromboplastin Time 30.4 Seconds (21.0-31.0)
[2021-08-09] MEDS ORDERED: HEPARIN SOD (PORCINE) 1000 UNIT/ML IV ONE (17:00)
[2021-08-09 18:53] LABS: Hematocrit (blood only) 25.9 % (42-52); Hemoglobin 8.4 g/dL (14.0-18.0)
[2021-08-10 00:21] LABS: Partial Thromboplastin Ratio 1.2; Partial Thromboplastin Time 34.1 Seconds (21.0-31.0)
[2021-08-10] MEDS: HYDROmorphone INJ 0.5 MG/0.5 ML SYR IV PRN ×7 (03:25→23:54)
[2021-08-10] MEDS: PIPERACILLIN/TAZOBACTAM 4.5 GM in DEXTROSE 5% 100 ML IV SCH ×3 (03:25→19:28)
[2021-08-10 05:21] LABS: Basophils # (auto) 0.02 K/uL (0-0.2); Basophils % (auto) 0.2 %; Eosinophils # (auto) 0.51 K/uL (0-0.5); Eosinophils % (auto) 4.1 %; Hematocrit (blood only) 25.6 % (42-52); Hemoglobin 8.2 g/dL (14.0-18.0); Immature Granulocytes # (auto) 0.04 K/uL (0.00-0.02); Immature Granulocytes % (auto) 0.3 %; Lymphocytes # (auto) 1.84 K/uL (1.2-3.4); Lymphocytes % (auto) 14.8 %; Mean Corpuscular Hemoglobin 29.4 pg (25-34); Mean Corpuscular Volume 91.8 fL (80-100); Mean Platelet Volume 8.2 fL (7.4-10.4); Monocytes # (auto) 0.72 K/uL (0.11-0.59); Monocytes % (auto) 5.8 %; Neutrophils # (auto) 9.27 K/uL (1.4-6.5); Neutrophils % (auto) 74.8 %; Platelet Count 562 K/uL (130-400); RDW Coefficient of Variation 15.1 % (11.5-14.5); RDW Standard Deviation 50.6 fL (36.4-46.3); Red Blood Count 2.79 M/uL (4.7-6.1)
[2021-08-10 05:27] LABS: Partial Thromboplastin Ratio 1.3; Partial Thromboplastin Time 35.9 Seconds (21.0-31.0)
[2021-08-10 05:32] LABS: BUN Creatinine Ratio 28.4 (10-20); Calcium 8.2 mg/dl (8.5-10.1); Creatinine Clr Calc Pharmacy 89.9 ml/min; Est GFR (African American) 75.1 ml/min; Est GFR (Non-African American) 64.8 ml/min; Magnesium 2.2 mg/dl (1.7-2.4); Phosphorus 2.2 mg/dl (2.5-4.9)
[2021-08-10] MEDS: HEPARIN SODIUM/DEXTROSE 25,000 UNITS/500 ML BAG IV SCH ×3 (05:44→21:50)
[2021-08-10] MEDS ORDERED: HEPARIN SOD (PORCINE) 1000 UNIT/ML IV ONE (05:45)
--- NOTE | 2021-08-10 09:47 | Critical Care Progress Note ---
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 He was also found to have a right upper lobe pulmonary embolism and lower extremity DVT. Neurologic: Mentating well. Pain control per general surgery ordered. Pulmonary: Encourage incentive spirometry. Aspiration precautions. Cardiovascular: Restart antihypertensives at this time. -Enalapril 20mg as patient was on combo prior to not starting diuretic Gastrointestinal: Status post ileostomy with mucous fistula and abscess drainage. Patient with history of recently diagnosed adenocarcinoma of the appendix with local metastatic disease to the lymph nodes. -After morning meds clamp NG tube for 2 hours then resume lower intermittent suction Renal: Discontinue Da Silva Infectious disease: Blood cultures. Zosyn empirically x 10Days Hematologic: Patient with retroperitoneal bleed intraoperatively. Hemoglobin stable. Hemodynamically stable at this time. Patient hypercoagulable. He has an acute right upper lobe PE, lower extremity DVT and mesenteric vein thrombus. -Discussed with General Surgery, >3 days post-op, stable for Systemic anticoagulation: Low-dose Heparin -No indication for filter - Transfuse 1 unit packed red blood cells 08/09 Endocrine: Maintain euglycemia. Lines and tubes: Peripheral IVs. VTE prophylaxis: SCDs. CODE STATUS: Full code Stable for downgrade out of ICU Patient was discussed on multidisciplinary rounds with general surgery Admission and Anticipated Discharge Date Admission Date: August 06, 2021 Subjective Abdominal pain doing better today Physical Exam Physical Exam: General: Alert. nontoxic. Skin: Warm, dry, Head: Atraumatic Ears, nose, mouth and throat: airway patent Cardiovascular: Normal peripheral perfusion Respiratory: no respiratory distress Gastrointestinal: Abdominal binder present, no shadowing on dressings. NG tube present hypoactive bowel sounds tenderness with palpation Musculoskeletal: No deformity Results & Data Results & Data ([facility]) Vital Signs (Past 12 Hours) Vital Signs Pulse Resp BP Pulse Ox 08/10/21 07:30 78 17 114/66 97 08/10/21 07:00 77 18 115/61 97 Critical Care Results & Data Vital Signs (Past 12 Hours) Vital Signs Pulse Resp BP Pulse Ox 08/10/21 07:30 78 17 114/66 97 08/10/21 07:00 77 18 115/61 97 Lab & Micro Results (Past 24 Hours) RBC 2.79 M/uL (4.7-6.1) L 08/10/21 WBC 12.40 K/uL (4.8-10.8) H 08/10/21 Hgb 8.2 g/dL (14.0-18.0) L 08/10/21 Hct 25.6 % (42-52) L 08/10/21 MCV 91.8 fL (80-100) 08/10/21 MCH 29.4 pg (25-34) 08/10/21 MCHC 32.0 g/dL (32-36) 08/10/21 RDW Standard Deviation 50.6 fL (36.4-46.3) H 08/10/21 RDW Coefficient of Variation 15.1 % (11.5-14.5) H 08/10/21 Plt Count 562 K/uL (130-400) H 08/10/21 MPV 8.2 fL (7.4-10.4) 08/10/21 Neutrophils (%) (Auto) 74.8 % 08/10/21 Lymphocytes (%) (Auto) 14.8 % 08/10/21 Monocytes # (Auto) 0.72 K/uL (0.11-0.59) H 08/10/21 Eosinophils # (Auto) 0.51 K/uL (0-0.5) H 08/10/21 Immature Granulocyte % (Auto) 0.3 % 08/10/21 Neutrophils # (Auto) 9.27 K/uL (1.4-6.5) H 08/10/21 Lymphocytes # (Auto) 1.84 K/uL (1.2-3.4) 08/10/21 Monocytes # (Auto) 0.72 K/uL (0.11-0.59) H 08/10/21 Eosinophils # (Auto) 0.51 K/uL (0-0.5) H 08/10/21 Basophils # (Auto) 0.02 K/uL (0-0.2) 08/10/21 Immature Granulocyte # (Auto) 0.04 K/uL (0.00-0.02) H 08/10/21 Na 137 mmol/L (136-145) 08/10/21 K 4.0 mmol/L (3.5-5.1) 08/10/21 Cl 100 mmol/L (98-107) 08/10/21 CO2 32 mmol/L (21-32) 08/10/21 Anion Gap 5 (3-11) 08/10/21 BUN 33 mg/dl (6-23) H 08/10/21 Creatinine 1.16 mg/dl (0.6-1.4) 08/10/21 Estimated GFR ( Amer) 75.1 ml/min 08/10/21 Estimated GFR (Non-Af Amer) 64.8 ml/min 08/10/21 BUN/Creatinine Ratio 28.4 (10-20) H 08/10/21 Glu 113 mg/dl (70-99(Fasting)) H 08/10/21 Ca 8.2 mg/dl (8.5-10.1) L 08/10/21 Phosphorus Level 2.2 mg/dl (2.5-4.9) L 08/10/21 Mg 2.2 mg/dl (1.7-2.4) 08/10/21 05:00 08/10/21 Calcium Level 8.2 mg/dl (8.5-10.1) L 08/10/21 05:00 08/10/21 I & O Totals 24 Hours 08/09/21 08/10/21 08/11/21 06:59 06:59 06:59 Intake Total 2414.320 / 2414.320 2033.4 / 2033.4 160 / 160 Output Total 2725 / 2725 3205 / 3205 Balance -310.680 / -310.680 -1171.6 / -1171.6 160 / 160 Cumulative 08/06/21 10:24 thru 08/10/21 07:27 Intake Total 97672.427 Output Total 6257 Balance 5275.427 RT Ventilator Mngmt (Last Documented) Ventilator Ordered Settings Respiratory Rate 17 08/10/21 07:30 Fraction of Inspired Oxygen 2 08/08/21 08:00 Ventilator - PT Measurements Respiratory Rate 17 Coding Level of Care Code 16467 Subseq Hosp Care Lvl 3 Diagnoses Anastomotic leak of intestine K91.89 Pneumoperitoneum K66.8 Superior mesenteric vein thrombosis K55.069 Acute pulmonary embolism I26.99 Acute cor pulmonale presence: unspecified Pulmonary embolism type: unspecified Anemia D64.9 Anemia type: unspecified type 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
[2021-08-10] MEDS: PANTOprazole 40 MG in SYRINGE 0 ML IV SCH (10:18)
[2021-08-10 11:45] LABS: Partial Thromboplastin Ratio 1.5
--- NOTE | 2021-08-10 12:41 | Hospitalist Progress Note ---
Date of Service August 10, 2021 Assessment & Plan (1) Anastomotic leak of intestine: Plan: Anastomotic leak with abscess Status Post elective laparoscopic assisted right hemicolectomy for intramucosal tumor found on colonoscopy and biopsy.07/26/2021 Worsening abdominal pain since discharge from the hospital on 07/30/2021 --CT ABD:CT findings most characteristic of an anastomotic leak with an abscess seen along the right paracolic gutter. There is also extensive free air as seen radiographically. There is mild to moderate ascites present with fluid over the dome of the liver and extending down both paracolic gutters and into the pelvis. Thrombus within the superior mesenteric vein. Appreciate surgery input and recommendation Status post:: Laparotomy, Colon Resection with Ostomy Placement on 08/06/2021 Gentle IV fluids given mildly volume overload status Has been on Zosyn for possible intra-abdominal/intestinal infection Blood cultures have been taken-reported negative Minimal abdominal distention and pain Bowel has not moved NG tube in situ, abdomen remains mildly distended but not painful Management as per surgeon Bowel has not moved yet Appendiceal goblet cell adenocarcinoma of colon Status Post elective laparoscopic assisted right hemicolectomy for intramucosal tumor found on colonoscopy and biopsy.07/26/2021 Admitted with increasing abdominal pain and anastomotic leak as above Status post exploratory laparotomy, colon resection and ostomy placement on 08/06/2021 Has thrombus within the superior mesenteric vein as on CT scan of the abdomen and pelvis Management as per surgery 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 No additional pulmonary emboli identified although lower lobe pulmonary ar teries suboptimally opacified. --CT ABD: mild to moderate ascites present with fluid over the dome of the liver and extending down both paracolic gutters and into the pelvis. Thrombus within the superior mesenteric vein. --Venous Doppler:Nonobstructive left popliteal vein thrombus. -Echo of the heart showed-LV cavity is small, moderate concentric LVH, LV is hyperdynamic, EF more than 70%, RV is normal in size and function, no gross valvular abnormalities and no pulmonary hypertension -Discussed with surgeon and yarn skeins examiner -We will start low-dose heparin without bolus this evening -Monitor H&H to document evidence of bleeding -Intravenous heparin with low-dose without bolus was started last evening and is on hold right now because of drop in hemoglobin from 10-8.1 -The primary service and the yarn skeins examiner wanted to have the patient transferred for IVC filter placement -Appreciate vascular surgery input and recommendation -Low-dose heparin has been started from today and will monitor CBC -Has been tolerating Heparin without any symptoms and the hemoglobin remains stable-will need to discharge on oral anticoagulant -He will be transferred to telemetry unit for continuation of care Transfer status -Discussed with yarn skeins examiner Dr. Love in [place]-complicated case with recent surgery and not knowing the source of bleeding if it happened following heparin administration and seems to be a soft case for transfer just for IVC filter placement who will need anticoagulation eventually given the hypercoagulable state from cancer. Transfer declined and was advised to repeat hemoglobin tomorrow and restart low-dose heparin without bolus. If any drop in hemoglobin to find the source of bleeding and at that time the local vascular surgeon can determine the need for IVC filter placement which will not affect any results of superior mesenteric vein thrombus. LUCY Creatinine is noted to be high on admission at 1.64 and that has been increasing to 1.85 Has been getting intravenous fluid- cautious amount Cumulative balance is 466 3 mL We will monitor BMP-creatinine has been increasing Creatinine has been normalized HTN Hold benazepril, HCTZ today Monitor BP-remains at the lower side Received intravenous albumin yesterday Has been requiring pressor agents to maintain blood pressure otherwise remains reasonably stable Hepatitis C Completed treatment as per patient Morbid obesity BMI 41 DVT Px: SCDs for now Re: Surgery Will be starting low-dose heparin without bolus in the evening Heparin has been on hold-heparin is restarted from 08/09/2021 Code Status Full Code Admission and Anticipated Discharge Date Admission Date: August 06, 2021 Subjective 08/07/2021 The patient was seen and examined in ICU He has been feeling a little better and complains to have a lot of abdominal distention and pain Denies any chest pain with breathing or at rest, no palpitation and no shortness of breath No fever and/or chills 08/08/2021 The patient was seen and examined in ICU He complains to have some abdominal distention and pain but denies any other significant symptoms Denies any cough, hemoptysis, chest pain or shortness of breath Bowel has not moved yet 08/09/2021 The patient was seen and examined in ICU He remains stable without any significant symptoms Has had NG tube placement and abdomen remains mildly distended without significant pain Bowel is not moved Denies any chest pain, palpitation or shortness of breath 08/10/2021 The patient was seen and examined in ICU He has been getting heparin for DVT and pulmonary embolism without any further drop in hemoglobin He has been feeling a little better and is out of bed on a chair Bowel has not moved yet Review of Systems Review of Systems: All systems reviewed and are unremarkable except as noted below Gastrointestinal: Abdominal distention. Status post surgery. Diminished bowel sound Physical Exam Physical Exam: Lying in bed with minimal distress and anxiety Constitutional: well developed, well nourished, + ill appearing and + obese Eyes: PERRL, conjunctivae normal, anicteric sclerae ENMT: external ear and nose normal, oropharynx normal Neck: trachea midline, no thyromegaly Respiratory: no respiratory distress Auscultation: + crackles (Minimal crackles at the bases) Cardiovascular: Rate/Rhythm: regular rate and regular rhythm; not tachycardic Heart Sounds: normal S1 and normal S2; no murmur Extremities: + edema (1+ edema bilaterally) Gastrointestinal (Abdomen): Inspection/Auscultation: + abdomen distended; + abnormal bowel sounds (Decreased bowel sound) Percussion/Palpation: + abdomen tender (All over) and abdomen soft Musculoskeletal: No acute arthritis in any joint Neurologic: normal touch/pain/proprioception and moves all extremities Psychiatric: A+Ox3, euthymic affect Lymphatic: no cervical or axillary lymphadenopathy Results & Data Results & Data ([facility]) Vital Signs (Past 12 Hours) Vital Signs Pulse Resp BP Pulse Ox 08/10/21 12:22 73 08/10/21 10:27 82 23 117/69 97 08/10/21 10:00 78 25 H 113/62 97 08/10/21 09:45 80 17 109/64 97 08/10/21 09:30 80 17 126/66 97 08/10/21 09:15 75 16 111/60 97 08/10/21 09:00 71 21 115/63 97 08/10/21 08:45 76 15 115/85 97 08/10/21 08:30 78 17 118/56 L 98 08/10/21 08:15 75 16 117/60 97 08/10/21 08:00 77 19 121/62 97 08/10/21 07:30 78 17 114/66 97 08/10/21 07:00 77 18 115/61 97 Laboratory Results Short CBC 08/09/21 08/10/21 Range/Units 18:16 05:00 WBC 12.40 H (4.8-10.8) K/uL Hgb 8.4 L 8.2 L (14.0-18.0) g/dL Hct 25.9 L 25.6 L (42-52) % Plt Count 562 H (130-400) K/uL BMP 08/10/21 05:00 Sodium 137 Potassium 4.0 Chloride 100 Carbon Dioxide 32 BUN 33 H Creatinine 1.16 Glucose 113 H Calcium 8.2 L Medications Administered Current Inpatient Medications Enalapril Maleate (Enalapril Maleate 10 Mg Tab) 20 mg PO QAM [facility] Stop: 09/09/21 09:59 Hydromorphone HCl (Hydromorphone Inj 0.5 Mg/0.5 Ml Syr) 0.5 mg IV Q2H PRN PRN Reason: Pain Stop: 08/21/21 00:44 Last Admin: 08/10/21 09:53 Dose: 0.5 mg Documented by: Piperacillin Sod/Tazobactam (Sod 4.5 gm/ Dextrose) 120 mls @ 30 mls/hr IV Q8H [facility]; Protocol Stop: 08/16/21 19:29 Last Admin: 08/10/21 10:18 Dose: 30 mls/hr Documented by: Heparin Sodium/Dextrose (Heparin Sodium/Dextrose) 25,000 units in 500 mls @ 30 mls/hr IV .[id number] [facility]; Protocol Stop: 09/08/21 08:29 Last Titration: 08/10/21 07:04 Dose: 1,500 units/hr, 30 mls/hr Documented by: Pantoprazole Sodium 40 mg/ (Syringe) 10 mls @ 5 mls/min IV DAILY@1100 [facility] Stop: 09/08/21 10:59 Last Admin: 08/10/21 10:18 Dose: 5 mls/min Documented by: Ondansetron HCl (Ondansetron Inj 2 Mg/Ml 2 Ml Vial) 4 mg IV Q6H PRN PRN Reason: Nausea Stop: 09/05/21 18:51 Last Admin: 08/09/21 13:28 Dose: 4 mg Documented by:
[2021-08-10] MEDS: ENALAPRIL MALEATE 10 MG TAB PO SCH (13:10)
--- NOTE | 2021-08-10 14:20 | Surgery Progress Note ---
Date of Service August 10, 2021 Assessment & Plan (1) Anastomotic leak of intestine: Plan: He is overall doing well postop day 4 from his reexploration and ileostomy mucous fistula creation Clamp NGT Continue Heparin gtt; track H/H Continue Zosyn PT/OT Continue to follow (2) Pneumoperitoneum: (3) Hypercoagulable state: Admission and Anticipated Discharge Date Admission Date: August 06, 2021 Subjective POD 4; doing fairly well. moved to PCU from ICU; on Hep gtt; transfused one unit PRBCs yesterday. no nausea/vomiting; pain controlled with meds Physical Exam Constitutional: WD/WN, vitals as above + morbidly obese; no acute distress Eyes: PERRL, conjunctivae normal, anicteric sclerae Respiratory: normal respiratory effort; no respiratory distress and no labored breathing Cardiovascular: Rate/Rhythm: regular rate, regular rhythm and + tachycardic Gastrointestinal (Abdomen): Inspection/Auscultation: abdomen normal to inspection, + abdomen distended (Mild distention), + abdominal surgical scar (Without erythema or discharge) and + abdominal surgical drain present (Serosanguineous drainage) Percussion/Palpation: + abdomen tender (Diffusely) and abdomen soft; no guarding and abdomen not rigid ileostomy pink/viable; no air in bag; mucous fistula intact/viable Musculoskeletal: Extremities: no cyanosis and no clubbing Skin: no rashes, warm and dry Psychiatric: A+Ox3, euthymic affect Results & Data ([facility]) Vital Signs (Past 12 Hours) Vital Signs Temp Pulse Pulse Resp BP BP Pulse Ox 08/10/21 13:39 90 08/10/21 13:08 36.5 C 87 19 121/60 91 08/10/21 12:31 90 17 121/68 93 08/10/21 12:22 73 08/10/21 10:27 82 23 117/69 97 08/10/21 10:00 78 25 H 113/62 97 08/10/21 09:45 80 17 109/64 97 08/10/21 09:30 36.8 C 80 17 126/66 97 08/10/21 09:15 75 16 111/60 97 08/10/21 09:00 71 21 115/63 97 08/10/21 08:45 76 15 115/85 97 08/10/21 08:30 78 17 118/56 L 98 08/10/21 08:15 75 16 117/60 97 08/10/21 08:00 77 19 121/62 97 08/10/21 07:30 78 17 114/66 97 08/10/21 07:00 77 18 115/61 97
[2021-08-10 18:05] LABS: Partial Thromboplastin Ratio 1.5; Partial Thromboplastin Time 42.4 Seconds (21.0-31.0)
[2021-08-11 01:17] LABS: Partial Thromboplastin Ratio 2.1
[2021-08-11 01:21] LABS: Partial Thromboplastin Time 56.9 Seconds (21.0-31.0)
[2021-08-11] MEDS: HYDROmorphone INJ 0.5 MG/0.5 ML SYR IV PRN ×6 (02:25→23:06)
[2021-08-11] MEDS: PIPERACILLIN/TAZOBACTAM 4.5 GM in DEXTROSE 5% 100 ML IV SCH ×3 (04:00→20:00)
[2021-08-11 07:11] LABS: Basophils # (auto) 0.04 K/uL (0-0.2); Basophils % (auto) 0.3 %; Eosinophils # (auto) 0.54 K/uL (0-0.5); Eosinophils % (auto) 4.6 %; Hematocrit (blood only) 27.6 % (42-52); Hemoglobin 8.7 g/dL (14.0-18.0); Immature Granulocytes # (auto) 0.08 K/uL (0.00-0.02); Immature Granulocytes % (auto) 0.7 %; Lymphocytes # (auto) 1.65 K/uL (1.2-3.4); Mean Corpuscular Hemoglobin 29.3 pg (25-34); Mean Corpuscular Hgb Conc 31.5 g/dL (32-36); Mean Corpuscular Volume 92.9 fL (80-100); Mean Platelet Volume 8.2 fL (7.4-10.4); Monocytes # (auto) 0.82 K/uL (0.11-0.59); Neutrophils # (auto) 8.66 K/uL (1.4-6.5); Neutrophils % (auto) 73.4 %; Nucleated RBC # (auto) 0.04 K/uL (0-0); Nucleated RBC % (auto) 0.3 %; Platelet Count 650 K/uL (130-400); RDW Coefficient of Variation 14.5 % (11.5-14.5); RDW Standard Deviation 49.8 fL (36.4-46.3); Red Blood Count 2.97 M/uL (4.7-6.1); White Blood Count 11.79 K/uL (4.8-10.8)
[2021-08-11 07:31] LABS: BUN Creatinine Ratio 24.5 (10-20); Calcium 8.3 mg/dl (8.5-10.1); Creatinine Clr Calc Pharmacy 93.3 ml/min; Est GFR (African American) 80.1 ml/min; Est GFR (Non-African American) 69.1 ml/min; Magnesium 2.1 mg/dl (1.7-2.4); Potassium 4.1 mmol/L (3.5-5.1)
[2021-08-11] MEDS: ENALAPRIL MALEATE 10 MG TAB PO SCH (08:44)
--- NOTE | 2021-08-11 11:14 | Surgery Progress Note ---
Date of Service August 11, 2021 Assessment & Plan (1) Anastomotic leak of intestine: Plan: He is overall doing well postop day 5 from his reexploration and ileostomy mucous fistula creation remove NGT; start clears Continue Heparin gtt; track H/H Continue Zosyn PT/OT Continue to follow (2) Pneumoperitoneum: (3) Hypercoagulable state: Admission and Anticipated Discharge Date Admission Date: August 06, 2021 Subjective POD 5; doing fairly well. NGT clamped overnight; gas in ileostomy bag. no nausea/vomiting; pain controlled with meds Physical Exam Constitutional: WD/WN, vitals as above + morbidly obese; no acute distress Eyes: PERRL, conjunctivae normal, anicteric sclerae Respiratory: normal respiratory effort; no respiratory distress and no labored breathing Cardiovascular: Rate/Rhythm: regular rate, regular rhythm and + tachycardic Gastrointestinal (Abdomen): Inspection/Auscultation: abdomen normal to inspection, + abdomen distended (Mild distention), + abdominal surgical scar (Without erythema or discharge) and + abdominal surgical drain present (Serosanguineous drainage) Percussion/Palpation: + abdomen tender (Diffusely) and abdomen soft; no guarding and abdomen not rigid Musculoskeletal: Extremities: no cyanosis and no clubbing Skin: no rashes, warm and dry Psychiatric: A+Ox3, euthymic affect Results & Data ([facility]) Vital Signs (Past 12 Hours) Vital Signs Temp Pulse Pulse Pulse Resp BP BP 08/11/21 07:43 81 08/11/21 07:06 36.6 C 85 18 101/65 08/11/21 03:00 36.6 C 78 20 116/68 Pulse Ox 08/11/21 07:43 08/11/21 07:06 91 08/11/21 03:00 90
[2021-08-11] MEDS: PANTOprazole 40 MG in SYRINGE 0 ML IV SCH (11:23)
--- NOTE | 2021-08-11 12:03 | Hospitalist Progress Note ---
Date of Service August 11, 2021 Assessment & Plan (1) Anastomotic leak of intestine: Plan: Anastomotic leak with abscess Status Post elective laparoscopic assisted right hemicolectomy for intramucosal tumor found on colonoscopy and biopsy.07/26/2021 Worsening abdominal pain since discharge from the hospital on 07/30/2021 [facility] --CT ABD:CT findings most characteristic of an anastomotic leak with an abscess seen along the right paracolic gutter. There is also extensive free air as seen radiographically. There is mild to moderate ascites present with fluid over the dome of the liver and extending down both paracolic gutters and into the pelvis. Thrombus within the superior mesenteric vein. Appreciate surgery input and recommendation Status post:: Laparotomy, Colon Resection with Ostomy Placement on 08/06/2021 Gentle IV fluids given mildly volume overload status Has been on Zosyn for possible intra-abdominal/intestinal infection Blood cultures have been taken-reported negative Minimal abdominal distention and pain some output in ostomy this am (08/11) NG tube out and now tolerating clears. Cont current surgical management--he has been advanced to clears and doing well. Appendiceal goblet cell adenocarcinoma of colon Status Post elective laparoscopic assisted right hemicolectomy for intramucosal tumor found on colonoscopy and biopsy.07/26/2021 Admitted with increasing abdominal pain and anastomotic leak as above Status post exploratory laparotomy, colon resection and ostomy placement on 08/06/2021 Has thrombus within the superior mesenteric vein as on CT scan of the abdomen and pelvis 08/11 cont heparin drip as easy to turn off if risk of bleeding is still high--defer to surgery for when it is ok to start apixaban. I discussed the options of coumadin vs NOAC and patient prefers me to discuss with PCP. Will touch base with her today. 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 No additional pulmonary emboli identified although lower lobe pulmonary arteries suboptimally opacified. --CT ABD: mild to moderate ascites present with fluid over the dome of the liver and extending down both paracolic gutters and into the pelvis. Thrombus within the superior mesenteric vein. --Venous Doppler:Nonobstructive left popliteal vein thrombus. -Echo of the heart showed-LV cavity is small, moderate concentric LVH, LV is hyperdynamic, EF more than 70%, RV is normal in size and function, no gross valvular abnormalities and no pulmonary hypertension -Discussed with surgeon and rolling chair pusher -continues on low dose heparin for provoked DVT in setting of malignancy -outpatient follow-up with hematology recommended. -although there was a concern for Hb drop a few days ago, H/H stable and there is no overt bleeding at this time. -cont heparin Discussion with [facility] [place] transfer center: -Discussed with rolling chair pusher Dr. Love in [place]-complicated case with recent surgery and not knowing the source of bleeding if it happened following heparin administration and seems to be a soft case for transfer just for IVC filter pl acement who will need anticoagulation eventually given the hypercoagulable state from cancer. Transfer declined and was advised to repeat hemoglobin tomorrow and restart low-dose heparin without bolus. If any drop in hemoglobin to find the source of bleeding and at that time the local vascular surgeon can determine the need for IVC filter placement which will not affect any results of superior mesenteric vein thrombus. LUCY-resolved. HTN was requiring pressor support in the ICU recently Hold benazepril, HCTZ while NPO-may start as now on diet but hold with low normal BP today. Hepatitis C history of this--Completed treatment as per patient Morbid obesity BMI 41 DVT Px: SCDs for now Re: Surgery Will be starting low-dose heparin without bolus in the evening Heparin has been on hold-heparin is restarted from 08/09/2021 Code Status Full Code Thank you for this consultation. We will continue to follow him daily while he is admitted. Hoda Porter DO [facility] and Anticipated Discharge Date Admission Date: August 06, 2021 Subjective POD 5 s/p ex lap with colon resection and ostomy placement by Dr. Harris. reports pain around his ostomy site that he reports having discussed with the surgeon this am is tolerating clear liquids NG tube out this am Review of Systems Review of Systems: All systems were reviewed and negative except as indicated in subjective above. Physical Exam Physical Exam: CONSTITUTIONAL: obese, vitals as above, generally well- appearing EYES: normal conjunctivae, no scleral icterus ENT: external ear and nose normal, MMM NECK: trachea midline RESPIRATORY: clear to auscultation bilaterally, no crackles, rales or wheezes, normal respiratory effort CARDIOVASCULAR: regular rate and rhythm, S1 and 2 heard without murmurs, gallops or rubs, no JVD, no peripheral edema, CHEST: inspection of chest was normal GASTROINTESTINAL: soft, nontender, ND, no guarding MUSCULOSKELETAL: strength 5/5 throughout, head is normocephalic and atraumatic SKIN: warm and dry, colostomy in place and greenish stool in the bag. NEUROLOGIC: CN 2-12 grossly intact, no sensory deficit, normal cognition, normal speech, no tremor, no gross focal deficits. PSYCHIATRIC: alert cooperative and oriented to person, place and time. Results & Data Results & Data ([facility]) Vital Signs (Past 12 Hours) Vital Signs Temp Pulse Pulse Pulse Resp BP BP 08/11/21 07:43 81 08/11/21 07:06 36.6 C 85 18 101/65 08/11/21 03:00 36.6 C 78 20 116/68 Pulse Ox 08/11/21 07:43 08/11/21 07:06 91 08/11/21 03:00 90 Laboratory Results Short CBC 08/11/21 Range/Units 06:50 WBC 11.79 H (4.8-10.8) K/uL Hgb 8.7 L (14.0-18.0) g/dL Hct 27.6 L (42-52) % Plt Count 650 H (130-400) K/uL BMP 08/11/21 06:50 Sodium 136 Potassium 4.1 Chloride 100 Carbon Dioxide 30 BUN 27 H Creatinine 1.10 Glucose 114 H Calcium 8.3 L Medications Administered Current Inpatient Medications Enalapril Maleate (Enalapril Maleate 10 Mg Tab) [facility] Stop: 09/09/21 09:59 Last Admin: 08/11/21 08:44 Dose: Not Given Documented by: Hydromorphone HCl (Hydromorphone Inj 0.5 Mg/0.5 Ml Syr) 0.5 mg IV Q2H PRN PRN Reason: Pain Stop: 08/21/21 00:44 Last Admin: 08/11/21 09:49 Dose: 0.5 mg Documented by: Piperacillin Sod/Tazobactam (Sod 4.5 gm/ Dextrose) 120 mls @ 30 mls/hr IV Q8H [facility]; Protocol Stop: 08/16/21 19:29 Last Admin: 08/11/21 11:23 Dose: 30 mls/hr Documented by: Heparin Sodium/Dextrose (Heparin Sodium/Dextrose) 25,000 units in 500 mls @ 34 mls/hr IV .[id number] [facility]; Protocol Stop: 09/08/21 08:29 Last Titration: 08/11/21 06:57 Dose: 1,700 units/hr, 34 mls/hr Documented by: Pantoprazole Sodium 40 mg/ (Syringe) 10 mls @ 5 mls/min IV DAILY@1100 [facility] Stop: 09/08/21 10:59 Last Admin: 08/11/21 11:23 Dose: 5 mls/min Documented by: Ondansetron HCl (Ondansetron Inj 2 Mg/Ml 2 Ml Vial) 4 mg IV Q6H PRN PRN Reason: Nausea Stop: 09/05/21 18:51 Last Admin: 08/09/21 13:28 Dose: 4 mg Documented by:
[2021-08-11] MEDS: HEPARIN SODIUM/DEXTROSE 25,000 UNITS/500 ML BAG IV SCH (12:48)
[2021-08-12] MEDS: HEPARIN SODIUM/DEXTROSE 25,000 UNITS/500 ML BAG IV SCH (03:26)
[2021-08-12] MEDS: HYDROmorphone INJ 0.5 MG/0.5 ML SYR IV PRN ×2 (03:28→09:04)
[2021-08-12] MEDS: PIPERACILLIN/TAZOBACTAM 4.5 GM in DEXTROSE 5% 100 ML IV SCH ×3 (03:31→19:48)
[2021-08-12 08:40] LABS: Partial Thromboplastin Ratio 1.8
[2021-08-12 08:50] LABS: Partial Thromboplastin Time 49.8 Seconds (21.0-31.0)
[2021-08-12] MEDS: ONDANSETRON INJ 2 MG/ML 2 ML VIAL IV PRN (09:04)
[2021-08-12] MEDS: PANTOprazole 40 MG in SYRINGE 0 ML IV SCH (12:02)
--- NOTE | 2021-08-12 13:14 | Surgery Progress Note ---
Date of Service August 12, 2021 Assessment & Plan (1) Anastomotic leak of intestine: Plan: He is overall doing well postop day 6 from his reexploration and ileostomy mucous fistula creation advance diet to Heart Healthy switch from Heparin gtt to apixaban Continue Zosyn PT/OT probable home Monday/Monday (2) Pneumoperitoneum: (3) Hypercoagulable state: Admission and Anticipated Discharge Date Admission Date: August 06, 2021 Subjective POD 6 doing well. air and liquid in ostomy bag. tolerating clears. no nausea/vomiting. Physical Exam Constitutional: WD/WN, vitals as above + morbidly obese; no acute distress Eyes: PERRL, conjunctivae normal, anicteric sclerae Respiratory: normal respiratory effort; no respiratory distress and no labored breathing Cardiovascular: Rate/Rhythm: regular rate, regular rhythm and + tachycardic Gastrointestinal (Abdomen): Inspection/Auscultation: abdomen normal to inspection, + abdomen distended (Mild distention), + abdominal surgical scar (Without erythema or discharge) and + abdominal surgical drain present (Serosanguineous drainage) Percussion/Palpation: + abdomen tender (Diffusely) and abdomen soft; no guarding and abdomen not rigid Musculoskeletal: Extremities: no cyanosis and no clubbing Skin: no rashes, warm and dry Psychiatric: A+Ox3, euthymic affect Results & Data ([facility]) Vital Signs (Past 12 Hours) Vital Signs Temp Pulse Resp BP Pulse Ox 08/12/21 07:48 36.6 C 73 18 106/64 96
--- NOTE | 2021-08-12 14:18 | Hospitalist Progress Note ---
Date of Service August 12, 2021 Assessment & Plan (1) Anastomotic leak of intestine: Plan: Anastomotic leak with abscess Status Post elective laparoscopic assisted right hemicolectomy for intramucosal tumor found on colonoscopy and biopsy.07/26/2021 Worsening abdominal pain since discharge from the hospital on 07/30/2021 NURSE OFFICE --CT ABD:CT findings most characteristic of an anastomotic leak with an abscess seen along the right paracolic gutter. There is also extensive free air as seen radiographically. There is mild to moderate ascites present with fluid over the dome of the liver and extending down both paracolic gutters and into the pelvis. Thrombus within the superior mesenteric vein. Appreciate surgery input and recommendation Status post:: Laparotomy, Colon Resection with Ostomy Placement on 08/06/2021 Gentle IV fluids given mildly volume overload status Has been on Zosyn for possible intra-abdominal/intestinal infection Blood cultures have been taken-reported negative Minimal abdominal distention and pain some output in ostomy this am (08/11) NG tube out and now tolerating clears. Cont current surgical management--he has been advanced to clears and doing well. 08/12-continue to advance diet, POD 6 Appendiceal goblet cell adenocarcinoma of colon Status Post elective laparoscopic assisted right hemicolectomy for intramucosal tumor found on colonoscopy and biopsy.07/26/2021 Admitted with increasing abdominal pain and anastomotic leak as above Status post exploratory laparotomy, colon resection and ostomy placement on 08/06/2021 Has thrombus within the superior mesenteric vein as on CT scan of the abdomen and pelvis 08/11 cont heparin drip as easy to turn off if risk of bleeding is still high--defer to surgery for when it is ok to start apixaban. I discussed the options of coumadin vs NOAC and patient prefers me to discuss with PCP. Will touch base with her today. 08/12-started apixaban 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 No additional pulmonary emboli identified although lower lobe pulmonary arteries suboptimally opacified. --CT ABD: mild to moderate ascites present with fluid over the dome of the liver and extending down both paracolic gutters and into the pelvis. Thrombus within the superior mesenteric vein. --Venous Doppler:Nonobstructive left popliteal vein thrombus. -Echo of the heart showed-LV cavity is small, moderate concentric LVH, LV is hyperdynamic, EF more than 70%, RV is normal in size and function, no gross valvular abnormalities and no pulmonary hypertension -Discussed with surgeon and retail customer service specialist -continues on low dose heparin for provoked DVT in setting of malignancy -outpatient follow-up with hematology recommended. -although there was a concern for Hb drop a few days ago, H/H stable and there is no overt bleeding at this time. -08/12-heparin stopped, apixaban started [place] [facility]: -Discussed with retail customer service specialist Dr. Love in [place]-complicated case with recent surgery and not knowing the source of bleeding if it happened following heparin administration and seems to be a soft case for transfer just for IVC filter placement who will need anticoagulation eventually given the hypercoagulable state from cancer. Transfer declined and was advised to repeat hemoglobin tomorrow and restart low-dose heparin without bolus. If any drop in hemoglobin to find the source of bleeding and at that time the local vascular surgeon can determine the need for IVC filter placement which will not affect any results of superior mesenteric vein thrombus. LUCY-resolved. HTN was requiring pressor support in the ICU recently Hold benazepril, HCTZ while NPO-may start as now on diet but hold with low normal BP today. Hepatitis C history of this--Completed treatment as per patient Morbid obesity BMI 41 DVT Px: SCDs for now Re: Surgery Will be starting low-dose heparin without bolus in the evening Heparin has been on hold-heparin is restarted from 08/09/2021 Code Status Full Code Thank you for this consultation. We will continue to follow him daily while he is admitted. Hoda Porter DO [facility] Admission and Anticipated Discharge Date Admission Date: August 06, 2021 Subjective POD 6 s/p ex lap with colon resection and ostomy placement by Dr. Harris. pain is well managed tolerating his advanced diet getting out of bed. Review of Systems Review of Systems: All systems were reviewed and negative except as indicated in subjective above. Physical Exam Physical Exam: CONSTITUTIONAL: obese, vitals as above, generally well- appearing EYES: normal conjunctivae, no scleral icterus ENT: external ear and nose normal, MMM NECK: trachea midline RESPIRATORY: clear to auscultation bilaterally, no crackles, rales or wheezes, normal respiratory effort CARDIOVASCULAR: regular rate and rhythm, S1 and 2 heard without murmurs, gallops or rubs, no JVD, no peripheral edema, CHEST: inspection of chest was normal GASTROINTESTINAL: soft, nontender, ND, no guarding incision sites covered wtih dressing, colostomy present. MUSCULOSKELETAL: strength 5/5 throughout, head is normocephalic and atraumatic SKIN: warm and dry, colostomy in place NEUROLOGIC: CN 2-12 grossly intact, no sensory deficit, normal cognition, normal speech, no tremor, no gross focal deficits. PSYCHIATRIC: alert cooperative and oriented to person, place and time. Results & Data Results & Data ([facility]) Vital Signs (Past 12 Hours) Vital Signs Temp Pulse Resp BP Pulse Ox 08/12/21 07:48 36.6 C 73 18 106/64 96
[2021-08-12] MEDS: oxyCODONE/ACETAMINOPHEN 5mg/325mg TAB PO PRN ×2 (15:45→22:06)
[2021-08-12] MEDS: APIXABAN 5 MG TABLET PO SCH (19:44)
[2021-08-12] MEDS ORDERED: APIXABAN 5 MG TABLET PO SCH (21:00)
[2021-08-13] MEDS: ACETAMINOPHEN 325 MG TAB PO PRN ×3 (02:41→17:54)
[2021-08-13] MEDS: oxyCODONE HCL IR 5 MG TAB (IMMEDIATE RELEASE) PO PRN ×3 (02:42→17:54)
[2021-08-13] MEDS: PIPERACILLIN/TAZOBACTAM 4.5 GM in DEXTROSE 5% 100 ML IV SCH (02:47)
[2021-08-13] MEDS: APIXABAN 5 MG TABLET PO SCH (07:59)
[2021-08-13] MEDS: PANTOprazole 40 MG TAB PO SCH (08:00)
--- NOTE | 2021-08-13 09:35 | Surgery Progress Note ---
Date of Service August 13, 2021 Assessment & Plan (1) Anastomotic leak of intestine: (2) Pneumoperitoneum: (3) Hypercoagulable state: (4) Acute pulmonary embolism: (5) Superior mesenteric vein thrombosis: Plan: POD # 7 s/p reexploration and ileostomy with mucous fistula creation for anastomotic leak -afebrile , vss - postop pain controlled - no leukocytosis - Ostomy functioning - Hgb stable Plan: Continue Heart Healthy diet continue apixaban Continue ABx for total of 10 days from surgery, can transition to oral Augmentin today continue PT/OT continue incentive spirometry, should be sent home with incentive to work on at home will get wound care nurse involved to assess colostomy prior to discharge Will get case management to discuss home health options for colostomy care at first Patient wants to go home on discharge and not rehab, need final clearance by PT to be safe at home. Briefly discussed option of home PT with patient but he defers at this time. Discharge home Monday as home health nursing able to see patient on Monday. Discussed with DR. hebert who agrees with above. Admission and Anticipated Discharge Date Admission Date: August 06, 2021 Subjective feeling good today colostomy is functioning, emptied this morning abdominal pain controlled no chest pain or shortness of breath tolerated heart healthy diet no n,v urinating without difficulty Patient wants to return home with help from family. Does not want to go to rehab. PT/OT on board. States has experience with colostomy care with her sister and mother but would like home health to help initially. Has lift chair at home now and rolling walker. Physical Exam Constitutional: WD/WN, vitals as above + obese; no acute distress and not ill appearing Neck: normal visual inspection; + trachea not midline Respiratory: normal respiratory effort, lungs clear to auscultation no respiratory distress, no labored breathing, no retractions and no cough Gastrointestinal (Abdomen): Inspection/Auscultation: abdomen normal to inspection, + abdominal surgical incision (nikki intact, lee drains in place) and + abdominal surgical drain present (serosangineous); abdomen not distended Percussion/Palpation: abdomen soft; no guarding and abdomen not rigid Right colostomy with liquid stool present Skin: no rashes, warm and dry Psychiatric: Orientation: alert and oriented x 3 Results & Data ([facility]) Vital Signs (Past 12 Hours) Vital Signs Temp Pulse Resp BP Pulse Ox 08/13/21 07:35 36.5 C 77 16 115/66 92 08/12/21 22:10 36.5 C 79 16 115/69 95 Laboratory Results 08/13/21 08/13/21 Range/Units 09:08 09:08 WBC 10.48 (4.8-10.8) K/uL RBC 3.10 L (4.7-6.1) M/uL Hgb 9.0 L (14.0-18.0) g/dL Hct 28.6 L (42-52) % MCV 92.3 (80-100) fL MCH 29.0 (25-34) pg MCHC 31.5 L (32-36) g/dL RDW Std Deviation 49.4 H (36.4-46.3) fL RDW Coeff of Donny 15.0 H (11.5-14.5) % Plt Count 739 H (130-400) K/uL MPV 8.3 (7.4-10.4) fL Immature Gran % (Auto) 0.7 % Neut % (Auto) 73.7 % Lymph % (Auto) 13.0 % [place] % (Auto) 7.0 % Eos % (Auto) 5.4 % Baso % (Auto) 0.2 % Neut # (Auto) 7.73 H (1.4-6.5) K/uL Lymph # (Auto) 1.36 (1.2-3.4) K/uL [place] # (Auto) 0.73 H (0.11-0.59) K/uL Eos # (Auto) 0.57 H (0-0.5) K/uL Baso # (Auto) 0.02 (0-0.2) K/uL Immature Gran # (Auto) 0.07 H (0.00-0.02) K/uL Absolute Nucleated RBC 0.09 H (0-0) K/uL Nucleated RBC % (auto) 0.9 % Sodium Pending Potassium Pending Chloride Pending Carbon Dioxide Pending Anion Gap Pending BUN Pending Creatinine Pending Est Cr Clr Drug Dosing Pending Est GFR ( Amer) Pending Est GFR (Non-Af Amer) Pending BUN/Creatinine Ratio Pending Glucose Pending Calcium Pending Phosphorus Pending Magnesium Pending (1) Acute pulmonary embolism Acute cor pulmonale presence: unspecified Pulmonary embolism type: unspecified Qualified Code(s): I26.99 - Other pulmonary embolism without acute cor pulmonale
[2021-08-13 09:38] LABS: Basophils # (auto) 0.02 K/uL (0-0.2); Basophils % (auto) 0.2 %; Eosinophils # (auto) 0.57 K/uL (0-0.5); Eosinophils % (auto) 5.4 %; Hematocrit (blood only) 28.6 % (42-52); Immature Granulocytes # (auto) 0.07 K/uL (0.00-0.02); Immature Granulocytes % (auto) 0.7 %; Lymphocytes # (auto) 1.36 K/uL (1.2-3.4); Mean Corpuscular Hgb Conc 31.5 g/dL (32-36); Mean Corpuscular Volume 92.3 fL (80-100); Mean Platelet Volume 8.3 fL (7.4-10.4); Monocytes # (auto) 0.73 K/uL (0.11-0.59); Neutrophils # (auto) 7.73 K/uL (1.4-6.5); Neutrophils % (auto) 73.7 %; Nucleated RBC # (auto) 0.09 K/uL (0-0); Nucleated RBC % (auto) 0.9 %; Platelet Count 739 K/uL (130-400); RDW Standard Deviation 49.4 fL (36.4-46.3); White Blood Count 10.48 K/uL (4.8-10.8)
[2021-08-13 10:24] LABS: BUN Creatinine Ratio 13.5 (10-20); Calcium 8.6 mg/dl (8.5-10.1); Creatinine Clr Calc Pharmacy 81.4 ml/min; Est GFR (Non-African American) 58.6 ml/min; Magnesium 1.8 mg/dl (1.7-2.4); Phosphorus 2.3 mg/dl (2.5-4.9); Potassium 3.9 mmol/L (3.5-5.1)
[2021-08-13] MEDS: AMOXICILLIN/CLAVULANATE 875 MG TAB PO SCH ×2 (12:18→17:53)
[2021-08-13] MEDS ORDERED: WARFARIN SOD 5 MG TAB PO ONE (17:48)
--- NOTE | 2021-08-13 17:57 | Hospitalist Progress Note ---
Date of Service August 13, 2021 Assessment & Plan (1) Anastomotic leak of intestine: Plan: Anastomotic leak with abscess Status Post elective laparoscopic assisted right hemicolectomy for intramucosal tumor found on colonoscopy and biopsy.07/26/2021 Worsening abdominal pain since discharge from the hospital on 07/30/2021 [employer] --CT ABD:CT findings most characteristic of an anastomotic leak with an abscess seen along the right paracolic gutter. There is also extensive free air as seen radiographically. There is mild to moderate ascites present with fluid over the dome of the liver and extending down both paracolic gutters and into the pelvis. Thrombus within the superior mesenteric vein. Appreciate surgery input and recommendation Status post:: Laparotomy, Colon Resection with Ostomy Placement on 08/06/2021 Gentle IV fluids given mildly volume overload status Has been on Zosyn for possible intra-abdominal/intestinal infection Blood cultures have been taken-reported negative Minimal abdominal distention and pain some output in ostomy this am (08/11) NG tube out and now tolerating clears. Cont current surgical management--he has been advanced to clears and doing well. 08/12-continue to advance diet, POD 6 08/13-doing well, blisters from tape Appendiceal goblet cell adenocarcinoma of colon Status Post elective laparoscopic assisted right hemicolectomy for intramucosal tumor found on colonoscopy and biopsy.07/26/2021 Admitted with increasing abdominal pain and anastomotic leak as above Status post exploratory laparotomy, colon resection and ostomy placement on 08/06/2021 Has thrombus within the superior mesenteric vein as on CT scan of the abdomen and pelvis 08/11 cont heparin drip as easy to turn off if risk of bleeding is still high--defer to surgery for when it is ok to start apixaban. I discussed the options of coumadin vs NOAC and patient prefers me to discuss with PCP. Will touch base with her today. 08/12-started apixaban 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 No additional pulmonary emboli identified although lower lobe pulmonary arteries suboptimally opacified. --CT ABD: mild to moderate ascites present with fluid over the dome of the liver and extending down both paracolic gutters and into the pelvis. Thrombus within the superior mesenteric vein. --Venous Doppler:Nonobstructive left popliteal vein thrombus. -Echo of the heart showed-LV cavity is small, moderate concentric LVH, LV is hyperdynamic, EF more than 70%, RV is normal in size and function, no gross valvular abnormalities and no pulmonary hypertension -Discussed with surgeon and breakfast bar attendant -continues on low dose heparin for provoked DVT in setting of malignancy -outpatient follow-up with hematology recommended. -although there was a concern for Hb drop a few days ago, H/H stable and there is no overt bleeding at this time. -08/12-heparin stopped, apixaban started -08/13-insurance won't support a NOAC, cont coumadin and Lovenox bridge while here and will discharge with Lovenox-close follow-up wtih MTM next week. LUCY-resolved. HTN was requiring pressor support in the ICU recently Hold benazepril, HCTZ while NPO-may start as now on diet but hold with low normal BP today. Hepatitis C history of this--Completed treatment as per patient Morbid obesity BMI 41 DVT Px: SCDs for now Re: Surgery Will be starting low-dose heparin without bolus in the evening Heparin has been on hold-heparin is restarted from 08/09/2021 Code Status Full Code Thank you for this consultation. We will continue to follow him daily while he is admitted. Hoda Porter DO [facility] Hospitalist Admission and Anticipated Discharge Date Admission Date: August 06, 2021 Subjective POD 7 s/p ex lap with colon resection and ostomy placement by Dr. Harris. pain is well managed--realized that some of the RLQ pain he wa having was a bloster from the tape. tlerating solid food doing well overall getting out of bed. insurance doesn't cover NOAC, educated him on coumadin with bridge therapy Discussed his plan with his PCP. Review of Systems Review of Systems: All systems were reviewed and negative except as indicated in subjective above. Physical Exam Physical Exam: CONSTITUTIONAL: obese, vitals as above, generally well- appearing EYES: normal conjunctivae, no scleral icterus ENT: external ear and nose normal, MMM NECK: trachea midline RESPIRATORY: clear to auscultation bilaterally, no crackles, rales or wheezes, normal respiratory effort CARDIOVASCULAR: regular rate and rhythm, S1 and 2 heard without murmurs, gallops or rubs, no JVD, no peripheral edema, CHEST: inspection of chest was normal GASTROINTESTINAL: soft, nontender, ND, no guarding incision sites covered wtih dressing, colostomy present. MUSCULOSKELETAL: strength 5/5 throughout, head is normocephalic and atraumatic SKIN: warm and dry, colostomy in place NEUROLOGIC: CN 2-12 grossly intact, no sensory deficit, normal cognition, normal speech, no tremor, no gross focal deficits. PSYCHIATRIC: alert cooperative and oriented to person, place and time. Results & Data Results & Data ([facility]) Vital Signs (Past 12 Hours) Vital Signs Temp Pulse Resp BP Pulse Ox 08/13/21 15:56 36.8 C 82 16 108/63 96 08/13/21 07:35 36.5 C 77 16 115/66 92 Laboratory Results Short CBC 08/13/21 Range/Units 09:08 WBC 10.48 (4.8-10.8) K/uL Hgb 9.0 L (14.0-18.0) g/dL Hct 28.6 L (42-52) % Plt Count 739 H (130-400) K/uL BMP 08/13/21 09:08 Sodium 133 L Potassium 3.9 Chloride 102 Carbon Dioxide 24 BUN 17 Creatinine 1.26 Glucose 131 H Calcium 8.6 Medications Administered Current Inpatient Medications Acetaminophen (Acetaminophen 325 Mg Tab) 650 mg PO Q4H PRN PRN Reason: pain/fever (pain level 1-5) Stop: 09/11/21 14:14 Last Admin: 08/13/21 17:54 Dose: 650 mg Documented by: Amoxicillin/Clavulanate Potassium (Amoxicillin/Clavulanate 875 Mg Tab) 1 tab PO BIDM [facility] Stop: 08/17/21 23:59 Last Admin: 08/13/21 17:53 Dose: 1 tab Documented by: Enoxaparin Sodium (Enoxaparin 1 Mg/Kg) 1 mg SQ Q12H [facility] Stop: 09/12/21 19:59 Ondansetron HCl (Ondansetron Inj 2 Mg/Ml 2 Ml Vial) 4 mg IV Q6H PRN PRN Reason: Nausea Stop: 09/05/21 18:51 Last Admin: 08/12/21 09:04 Dose: 4 mg Documented by: Oxycodone HCl (Oxycodone Hcl Ir 5 Mg Tab (Immediate Release)) 5 - 10 mg PO QID PRN PRN Reason: Pain Stop: 08/27/21 02:34 Last Admin: 08/13/21 17:54 Dose: 10 mg Documented by: Pantoprazole Sodium (Pantoprazole 40 Mg Tab) 40 mg PO QAM [facility] Stop: 09/12/21 08:59 Last Admin: 08/13/21 08:00 Dose: 40 mg Documented by: Warfarin Sodium (Warfarin Sod 5 Mg Tab) 5 mg PO DAILY@1600 [facility] Stop: 09/13/21 15:59
[2021-08-13] MEDS ORDERED: ENOXAPARIN 1 MG/KG SQ SCH (20:00)
[2021-08-13] MEDS: ENOXAPARIN 150 MG/ML SYR SQ SCH (21:39)
[2021-08-14] MEDS: ACETAMINOPHEN 325 MG TAB PO PRN (02:42)
[2021-08-14] MEDS: oxyCODONE HCL IR 5 MG TAB (IMMEDIATE RELEASE) PO PRN ×4 (02:42→21:29)
[2021-08-14 06:53] LABS: Hematocrit (blood only) 26.7 % (42-52); Hemoglobin 8.5 g/dL (14.0-18.0); Mean Corpuscular Hemoglobin 29.7 pg (25-34); Mean Corpuscular Hgb Conc 31.8 g/dL (32-36); Mean Corpuscular Volume 93.4 fL (80-100); Mean Platelet Volume 8.2 fL (7.4-10.4); Nucleated RBC # (auto) 0.09 K/uL (0-0); Nucleated RBC % (auto) 0.9 %; Platelet Count 684 K/uL (130-400); RDW Coefficient of Variation 15.1 % (11.5-14.5); RDW Standard Deviation 50.8 fL (36.4-46.3); Red Blood Count 2.86 M/uL (4.7-6.1); White Blood Count 10.68 K/uL (4.8-10.8)
[2021-08-14 06:55] LABS: INR 1.2 (0.9-1.1); Prothrombin Time 12.3 Seconds (9.0-12.0)
[2021-08-14 07:15] LABS: BUN Creatinine Ratio 15.3 (10-20); Creatinine Clr Calc Pharmacy 92.4 ml/min; Est GFR (African American) 79.2 ml/min; Est GFR (Non-African American) 68.3 ml/min; Potassium 3.9 mmol/L (3.5-5.1)
[2021-08-14] MEDS: ENOXAPARIN 150 MG/ML SYR SQ SCH ×2 (08:26→21:27)
[2021-08-14] MEDS: PANTOprazole 40 MG TAB PO SCH (08:27)
[2021-08-14] MEDS: AMOXICILLIN/CLAVULANATE 875 MG TAB PO SCH (08:27)
[2021-08-14] MEDS: diphenhydrAMINE Capsule 25 MG CAP PO PRN ×2 (09:49→21:30)
--- NOTE | 2021-08-14 12:01 | Surgery Progress Note ---
Date of Service August 14, 2021 Assessment & Plan (1) Anastomotic leak of intestine: (2) Pneumoperitoneum: (3) Hypercoagulable state: (4) Acute pulmonary embolism: (5) Superior mesenteric vein thrombosis: Plan: POD # 8 s/p reexploration and ileostomy with mucous fistula creation for anastomotic leak -afebrile , vss - postop pain controlled - no leukocytosis - Ostomy functioning - Hgb stable Plan: Continue Heart Healthy diet continue Coumadin and Bridge therapy D/C antibiotic continue PT/OT continue incentive spirometry, should be sent home with incentive to work on at home will get wound care nurse involved to assess colostomy prior to discharge Will get case management to discuss home health options for colostomy care at first Patient wants to go home on discharge and not rehab, need final clearance by PT to be safe at home. Briefly discussed option of home PT with patient but he defers at this time. Discharge home Monday as home health nursing able to see patient on Monday. Admission and Anticipated Discharge Date Admission Date: August 06, 2021 Subjective Doing okay today, some more pain on the right side. No nausea or vomiting. Tolerating diet. Ostomy is working. No fevers. Physical Exam Constitutional: WD/WN, vitals as above + obese; no acute distress and not ill appearing Neck: normal visual inspection Gastrointestinal (Abdomen): Inspection/Auscultation: + abdominal surgical incision (nikki intact, lee drains in place) and + abdominal surgical drain present (serosangineous); abdomen not distended Percussion/Palpation: abdomen soft; no guarding and abdomen not rigid Skin: no rashes, warm and dry Psychiatric: Orientation: alert and oriented x 3 Results & Data ([facility]) Vital Signs (Past 12 Hours) Vital Signs Temp Pulse Resp BP Pulse Ox 08/14/21 07:25 36.5 C 73 18 115/69 96 (1) Acute pulmonary embolism Acute cor pulmonale presence: unspecified Pulmonary embolism type: unspecified Qualified Code(s): I26.99 - Other pulmonary embolism without acute cor pulmonale
--- NOTE | 2021-08-14 13:29 | Hospitalist Progress Note ---
Date of Service August 14, 2021 Assessment & Plan (1) Anastomotic leak of intestine: Plan: Anastomotic leak with abscess Status Post elective laparoscopic assisted right hemicolectomy for intramucosal tumor found on colonoscopy and biopsy.07/26/2021 Worsening abdominal pain since discharge from the hospital on 07/30/2021 [employer] --CT ABD:CT findings most characteristic of an anastomotic leak with an abscess seen along the right paracolic gutter. There is also extensive free air as seen radiographically. There is mild to moderate ascites present with fluid over the dome of the liver and extending down both paracolic gutters and into the pelvis. Thrombus within the superior mesenteric vein. Appreciate surgery input and recommendation Status post:: Laparotomy, Colon Resection with Ostomy Placement on 08/06/2021 Gentle IV fluids given mildly volume overload status Has been on Zosyn for possible intra-abdominal/intestinal infection Blood cultures have been taken-reported negative Minimal abdominal distention and pain some output in ostomy this am (08/11) NG tube out and now tolerating clears. Cont current surgical management--he has been advanced to clears and doing well. 08/12-continue to advance diet, POD 6 08/13-doing well, blisters from tape 08/14: surgeon adjusted some drains and patient feels better after acute lower abdomen pain this morning, cont to monitor for pain tomorrow. Appendiceal goblet cell adenocarcinoma of colon Status Post elective laparoscopic assisted right hemicolectomy for intramucosal tumor found on colonoscopy and biopsy.07/26/2021 Admitted with increasing abdominal pain and anastomotic leak as above Status post exploratory laparotomy, colon resection and ostomy placement on 08/06/2021 Has thrombus within the superior mesenteric vein as on CT scan of the abdomen and pelvis 08/11 cont heparin drip as easy to turn off if risk of bleeding is still high--defer to surgery for when it is ok to start apixaban. I discussed the options of coumadin vs NOAC and patient prefers me to discuss with PCP. Will touch base with her today. 08/12-started apixaban 08/14-switched to coumadin/Lovenox based on insurance coverage 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 No additional pulmonary emboli identified although lower lobe pulmonary arteries suboptimally opacified. --CT ABD: mild to moderate ascites present with fluid over the dome of the liver and extending down both paracolic gutters and into the pelvis. Thrombus within the superior mesenteric vein. --Venous Doppler:Nonobstructive left popliteal vein thrombus. -Echo of the heart showed-LV cavity is small, moderate concentric LVH, LV is hyperdynamic, EF more than 70%, RV is normal in size and function, no gross valvular abnormalities and no pulmonary hypertension -Discussed with surgeon and retail merchandising specialist -continues on low dose heparin for provoked DVT in setting of malignancy -outpatient follow-up with hematology recommended. -although there was a concern for Hb drop a few days ago, H/H stable and there is no overt bleeding at this time. -08/12-heparin stopped, apixaban started -08/13-insurance won't support a NOAC, cont coumadin and Lovenox bridge while here and will discharge with Lovenox-close follow-up with MTM next week. LUCY-resolved. HTN was requiring pressor support in the ICU recently Hold benazepril, HCTZ while NPO-may start as now on diet but hold with low normal BP today. Hepatitis C history of this--Completed treatment as per patient Morbid obesity BMI 41 DVT Px: SCDs for now Re: Surgery Will be starting low-dose heparin without bolus in the evening Heparin has been on hold-heparin is restarted from 08/09/2021 Code Status Full Code Thank you for this consultation. We will continue to follow him daily while he is admitted. Hoda Porter DO [facility] Hospitalist Admission and Anticipated Discharge Date Admission Date: August 06, 2021 Subjective POD 8 s/p ex lap with colon resection and ostomy placement by Dr. Harris. pain was worse this morning until drains were adjusted by surgeon. He is doing better now-SNEHAL drain still in place. getting out of bed. insurance doesn't cover NOAC, educated him on coumadin with bridge therapy Doing well with the Lovenox at bedside and explained the coumadin and Lovenox bridge therapy. Review of Systems Review of Systems: All systems were reviewed and negative except as indicated in subjective above. Physical Exam Physical Exam: CONSTITUTIONAL: obese, vitals as above, generally well- appearing EYES: normal conjunctivae, no scleral icterus ENT: external ear and nose normal, MMM NECK: trachea midline RESPIRATORY: clear to auscultation bilaterally, no crackles, rales or wheezes, normal respiratory effort CARDIOVASCULAR: regular rate and rhythm, S1 and 2 heard without murmurs, gallops or rubs, no JVD, no peripheral edema, CHEST: inspection of chest was normal GASTROINTESTINAL: soft, nontender, ND, no guarding incision sites covered wtih dressing, colostomy present. MUSCULOSKELETAL: strength 5/5 throughout, head is normocephalic and atraumatic SKIN: warm and dry, colostomy in place NEUROLOGIC: CN 2-12 grossly intact, no sensory deficit, normal cognition, normal speech, no tremor, no gross focal deficits. PSYCHIATRIC: alert cooperative and oriented to person, place and time. Results & Data Results & Data ([facility]) Vital Signs (Past 12 Hours) Vital Signs Temp Pulse Resp BP Pulse Ox 08/14/21 07:25 36.5 C 73 18 115/69 96 Laboratory Results Short CBC 08/14/21 Range/Units 06:24 WBC 10.68 (4.8-10.8) K/uL Hgb 8.5 L (14.0-18.0) g/dL Hct 26.7 L (42-52) % Plt Count 684 H (130-400) K/uL BMP 08/14/21 06:24 Sodium 133 L Potassium 3.9 Chloride 103 Carbon Dioxide 24 BUN 17 Creatinine 1.11 Glucose 101 H Calcium 8.0 L Medications Administered Current Inpatient Medications Acetaminophen (Acetaminophen 325 Mg Tab) 650 mg PO Q4H PRN PRN Reason: pain/fever (pain level 1-5) Stop: 09/11/21 14:14 Last Admin: 08/14/21 02:42 Dose: 650 mg Documented by: Diphenhydramine HCl (Diphenhydramine Capsule 25 Mg Cap) 25 mg PO Q6 PRN PRN Reason: itching Stop: 09/13/21 08:33 Last Admin: 08/14/21 09:49 Dose: 25 mg Documented by: Enoxaparin Sodium (Enoxaparin 150 Mg/Ml Syr) 141 mg SQ Q12H [facility] Stop: 09/12/21 17:59 Last Admin: 08/14/21 08:26 Dose: 141 mg Documented by: Ondansetron HCl (Ondansetron Inj 2 Mg/Ml 2 Ml Vial) 4 mg IV Q6H PRN PRN Reason: Nausea Stop: 09/05/21 18:51 Last Admin: 08/12/21 09:04 Dose: 4 mg Documented by: Oxycodone HCl (Oxycodone Hcl Ir 5 Mg Tab (Immediate Release)) 5 - 10 mg PO QID PRN PRN Reason: Pain Stop: 08/27/21 02:34 Last Admin: 08/14/21 09:48 Dose: 10 mg Documented by: Pantoprazole Sodium (Pantoprazole 40 Mg Tab) 40 mg PO QAM [facility] Stop: 09/12/21 08:59 Last Admin: 08/14/21 08:27 Dose: 40 mg Documented by: Warfarin Sodium (Warfarin Sod 5 Mg Tab) 5 mg PO DAILY@1600 [facility] Stop: 09/13/21 15:59
[2021-08-14] MEDS ORDERED: WARFARIN SOD 5 MG TAB PO SCH (16:00)
[2021-08-15] MEDS: oxyCODONE HCL IR 5 MG TAB (IMMEDIATE RELEASE) PO PRN ×2 (03:35→09:50)
[2021-08-15] MEDS: ENOXAPARIN 150 MG/ML SYR SQ SCH (08:41)
[2021-08-15] MEDS: diphenhydrAMINE Capsule 25 MG CAP PO PRN (08:41)
[2021-08-15] MEDS: PANTOprazole 40 MG TAB PO SCH (08:41)
[2021-08-15 08:51] LABS: Hematocrit (blood only) 26.3 % (42-52); Hemoglobin 8.3 g/dL (14.0-18.0); Mean Corpuscular Hemoglobin 29.6 pg (25-34); Mean Corpuscular Hgb Conc 31.6 g/dL (32-36); Mean Corpuscular Volume 93.9 fL (80-100); Mean Platelet Volume 8.4 fL (7.4-10.4); Nucleated RBC # (auto) 0.13 K/uL (0-0); Nucleated RBC % (auto) 1.3 %; Platelet Count 672 K/uL (130-400); RDW Coefficient of Variation 15.4 % (11.5-14.5); RDW Standard Deviation 51.3 fL (36.4-46.3); White Blood Count 9.88 K/uL (4.8-10.8)
[2021-08-15 08:54] LABS: INR 1.1 (0.9-1.1); Prothrombin Time 11.9 Seconds (9.0-12.0)
[2021-08-15 09:12] LABS: BUN Creatinine Ratio 17.2 (10-20); Calcium 8.2 mg/dl (8.5-10.1); Creatinine Clr Calc Pharmacy 104.3 ml/min; Est GFR (Non-African American) 78.5 ml/min; Potassium 4.1 mmol/L (3.5-5.1)
--- NOTE | 2021-08-15 10:41 | Surgery Progress Note ---
Date of Service August 15, 2021 Assessment & Plan (1) Anastomotic leak of intestine: (2) Pneumoperitoneum: (3) Hypercoagulable state: (4) Acute pulmonary embolism: (5) Superior mesenteric vein thrombosis: Plan: POD # 9 s/p reexploration and ileostomy with mucous fistula creation for anastomotic leak -afebrile , vss - postop pain controlled - no leukocytosis - Ostomy functioning - Hgb stable Plan: Continue Heart Healthy diet continue Coumadin and Bridge therapy SNEHAL drain was DC'd continue PT/OT continue incentive spirometry, should be sent home with incentive to work on at home Discharge home today. Follow-up in clinic on Monday or . Admission and Anticipated Discharge Date Admission Date: August 06, 2021 Subjective Doing well this morning. Denies any further pain. He is tolerating a diet. Denies fevers or chills. Physical Exam Constitutional: WD/WN, vitals as above + obese; no acute distress and not ill appearing Neck: normal visual inspection Gastrointestinal (Abdomen): Inspection/Auscultation: + abdominal surgical incision (nikki intact, lee drains in place) and + abdominal surgical drain present (serosangineous); abdomen not distended Percussion/Palpation: abdomen soft; no guarding and abdomen not rigid Skin: no rashes, warm and dry Psychiatric: Orientation: alert and oriented x 3 Results & Data ([facility]) Vital Signs (Past 12 Hours) Vital Signs Temp Pulse Resp BP Pulse Ox 08/15/21 07:24 36.7 C 74 16 113/69 96 (1) Acute pulmonary embolism Acute cor pulmonale presence: unspecified Pulmonary embolism type: unspecified Qualified Code(s): I26.99 - Other pulmonary embolism without acute cor pulmonale
--- NOTE | 2021-08-15 13:19 | Hospitalist Progress Note ---
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 There is also extensive free air as seen radiographically. There is mild to moderate ascites present with fluid over the dome of the liver and extending down both paracolic gutters and into the pelvis. Thrombus within the superior mesenteric vein. Appreciate surgery input and recommendation Status post:: Laparotomy, Colon Resection with Ostomy Placement on 08/06/2021 Gentle IV fluids given mildly volume overload status Has been on Zosyn for possible intra-abdominal/intestinal infection Blood cultures have been taken-reported negative Minimal abdominal distention and pain some output in ostomy this am (08/11) NG tube out and now tolerating clears. Cont current surgical management--he has been advanced to clears and doing well. 08/12-continue to advance diet, POD 6 08/13-doing well, blisters from tape 08/14: surgeon adjusted some drains and patient feels better after acute lower abdomen pain this morning, cont to monitor for pain tomorrow. 08/15: SNEHAL drain removed and his RLQ pain is improved, discharge planned for today. Home Health set up for [facility]. He was given supplies for ostomy to take home. Appendiceal goblet cell adenocarcinoma of colon Status Post elective laparoscopic assisted right hemicolectomy for intramucosal tumor found on colonoscopy and biopsy.07/26/2021 Admitted with increasing abdominal pain and anastomotic leak as above Status post exploratory laparotomy, colon resection and ostomy placement on 08/06/2021 Has thrombus within the superior mesenteric vein as on CT scan of the abdomen and pelvis 08/11 cont heparin drip as easy to turn off if risk of bleeding is still high--defer to surgery for when it is ok to start apixaban. I discussed the options of coumadin vs NOAC and patient prefers me to discuss with PCP. Will touch base with her today. 08/12-started apixaban 08/14-switched to coumadin/Lovenox based on insurance coverage 08/15: discharged on bridging therapy until recheck of INR by [facility] clinic next week. 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 No additional pulmonary emboli identified although lower lobe pulmonary arteries suboptimally opacified. --CT ABD: mild to moderate ascites present with fluid over the dome of the liver and extending down both paracolic gutters and into the pelvis. Thrombus within the superior mesenteric vein. --Venous Doppler:Nonobstructive left popliteal vein thrombus. -Echo of the heart showed-LV cavity is small, moderate concentric LVH, LV is hyperdynamic, EF more than 70%, RV is normal in size and function, no gross valvular abnormalities and no pulmonary hypertension -Discussed with surgeon and certified medical aide -continues on low dose heparin for provoked DVT in setting of malignancy -outpatient follow-up with hematology recommended. -although there was a concern for Hb drop a few days ago, H/H stable and there is no overt bleeding at this time. -08/12-heparin stopped, apixaban started -08/13-insurance won't support a NOAC, cont coumadin and Lovenox bridge while here and will discharge with Lovenox-close follow-up with [facility] next week. LUCY-resolved. HTN was requiring pressor support in the ICU recently Hold benazepril, HCTZ while NPO-may start as now on diet but hold with low normal BP today. Hepatitis C history of this--Completed treatment as per patient Morbid obesity BMI 41 DVT Px: SCDs for now Re: Surgery Will be starting low-dose heparin without bolus in the evening Heparin has been on hold-heparin is restarted from 08/09/2021 Code Status Full Code Thank you for this consultation. Would recommend a close primary care follow-up for him in 1 week to ensure he is still doing well after returning home and ensure his INR has been followed and a therapeutic INR was acheived. Hoda Porter DO [facility] Hospitalist Admission and Anticipated Discharge Date Admission Date: August 06, 2021 Subjective POD 9 s/p ex lap with colon resection and ostomy placement by Dr. Harris. SNEHAL drain removed this am and patient said there was some moderate pain associated with that but he is feeling better He told me he is going home no matter what today. Worked on getting him a reasonable [place] for the Lovenox Review of Systems Review of Systems: All systems were reviewed and negative except as indicated in subjective above. Physical Exam Physical Exam: CONSTITUTIONAL: obese, vitals as above, generally well- appearing EYES: normal conjunctivae, no scleral icterus ENT: external ear and nose normal, MMM NECK: trachea midline RESPIRATORY: clear to auscultation bilaterally, no crackles, rales or wheezes, normal respiratory effort CARDIOVASCULAR: regular rate and rhythm, S1 and 2 heard without murmurs, gallops or rubs, no JVD, no peripheral edema, CHEST: inspection of chest was normal GASTROINTESTINAL: soft, nontender, ND, no guarding incision sites covered wtih dressing, colostomy present. MUSCULOSKELETAL: strength 5/5 throughout, head is normocephalic and atraumatic SKIN: warm and dry, colostomy in place NEUROLOGIC: CN 2-12 grossly intact, no sensory deficit, normal cognition, normal speech, no tremor, no gross focal deficits. PSYCHIATRIC: alert cooperative and oriented to person, place and time. Results & Data Results & Data ([facility]) Vital Signs (Past 12 Hours) Vital Signs Temp Pulse Pulse Resp BP BP Pulse Ox 08/15/21 12:45 36.7 C 78 74 16 114/67 113/69 96 08/15/21 07:24 36.7 C 74 16 113/69 96 Laboratory Results Short CBC 08/15/21 Range/Units 08:16 WBC 9.88 (4.8-10.8) K/uL Hgb 8.3 L (14.0-18.0) g/dL Hct 26.3 L (42-52) % Plt Count 672 H (130-400) K/uL BMP 08/15/21 08:16 Sodium 136 Potassium 4.1 Chloride 106 Carbon Dioxide 24 BUN 17 Creatinine 0.99 Glucose 96 Calcium 8.2 L Medications Administered Current Inpatient Medications Acetaminophen (Acetaminophen 325 Mg Tab) 650 mg PO Q4H PRN PRN Reason: pain/fever (pain level 1-5) Stop: 09/11/21 14:14 Last Admin: 08/14/21 02:42 Dose: 650 mg Documented by: Diphenhydramine HCl (Diphenhydramine Capsule 25 Mg Cap) 25 mg PO Q6 PRN PRN Reason: itching Stop: 09/13/21 08:33 Last Admin: 08/15/21 08:41 Dose: 25 mg Documented by: Enoxaparin Sodium (Enoxaparin 150 Mg/Ml Syr) 141 mg SQ Q12H [facility] Stop: 09/12/21 17:59 Last Admin: 08/15/21 08:41 Dose: 141 mg Documented by: Ondansetron HCl (Ondansetron Inj 2 Mg/Ml 2 Ml Vial) 4 mg IV Q6H PRN PRN Reason: Nausea Stop: 09/05/21 18:51 Last Admin: 08/12/21 09:04 Dose: 4 mg Documented by: Oxycodone HCl (Oxycodone Hcl Ir 5 Mg Tab (Immediate Release)) 5 - 10 mg PO QID PRN PRN Reason: Pain Stop: 08/27/21 02:34 Last Admin: 08/15/21 09:50 Dose: 10 mg Documented by: Pantoprazole Sodium (Pantoprazole 40 Mg Tab) 40 mg PO QAM [facility] Stop: 09/12/21 08:59 Last Admin: 08/15/21 08:41 Dose: 40 mg Documented by: Warfarin Sodium (Warfarin Sod 5 Mg Tab) 5 mg PO DAILY@1600 [facility] Stop: 09/13/21 15:59 Last Admin: 08/14/21 16:32 Dose: 5 mg Documented by:
--- NOTE | 2021-08-23 08:06 | Discharge Summary ---
Date of Service August 23, 2021 Principal Diagnosis Anastomotic leak, superior mesenteric vein thrombosis, DVT, pulmonary embolism Discharge Exam Constitutional WD/WN, vitals as above + morbidly obese and + obese; no acute distress and not ill appearing Eyes PERRL, conjunctivae normal, anicteric sclerae Neck normal visual inspection Respiratory normal respiratory effort; no respiratory distress and no labored breathing Cardiovascular Rate/Rhythm: regular rate, regular rhythm and + tachycardic Gastrointestinal (Abdomen) Inspection/Auscultation: abdomen normal to inspection, + abdominal surgical scar (Without erythema or discharge), + abdominal surgical incision (nikki intact, lee drains in place) and + abdominal surgical drain present (serosangineous); abdomen not distended Percussion/Palpation: + abdomen tender (Diffusely) and abdomen soft; no guarding and abdomen not rigid Musculoskeletal Extremities: no cyanosis and no clubbing Skin no rashes, warm and dry Psychiatric A+Ox3, euthymic affect Orientation: alert and oriented x 3 Discharge Data Allergies Allergy/AdvReac Type Severity Reaction Status Date / Time amoxicillin [From Augmentin] Allergy Intermediate rash Verified 08/14/21 14:14 clavulanic acid Allergy Intermediate rash Verified 08/14/21 14:14 [From Augmentin] Consultations 08/06/21 12:42 ED Decision to Admit Stat 08/06/21 14:31 Consult Hospitalist Stat 08/06/21 14:51 Consult Vascular Surgery Routine 08/06/21 17:50 Consult Events Director Routine Procedures Performed Operation Date: 08/06/21 14:50 Actual Procedures p Exploratory Laparotomy, Colon Resection with Ostomy Placement(Not Applicable) - Bertin Harris MD Ordered Studies 08/06/21 10:51 US venous doppler LE BI Stat 08/06/21 11:30 CT abd pelvis IV con only Stat CT angio chest PE protocol Stat Hospital Course (1) Hypercoagulable state: (2) 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 He was diagnosed with DVT as well as subsegmental pulmonary embolism. Chest x-ray demonstrated significant amount of free air under the diaphragm. Subsequent CT scan of the abdomen and pelvis noted a anastomotic leak with abscess formation as well as a large superior mesenteric vein thrombosis. He was taken to the operating room for exploratory laparotomy, washout, resection of the anastomosis, ileostomy and mucous fistula creation. The details of this are dictated a separate operative note. Postoperatively he did fairly well. He was placed on a heparin drip and was subsequently converted to Lovenox shots and warfarin therapy. He was maintained n.p.o. with NG tube decompression until return of bowel function and then his diet was advanced as tolerated. SNEHAL drain was in place. Early ambulation was encouraged as well as PT/OT therapy. By the date of discharge, he was tolerating a regular diet, ambulating without difficulty, not requiring any IV pain medications, and was discharged home in stable condition. He will return to clinic in 3 days for drain removal and staple removal. Total Time Total Time Spent Total Time Spent (In Minutes): 30 minutes Discharge Plan Discharge Items Patient Disposition: Home - Home Health Services Reason For Visit: ABDOMINAL PAIN Discharge Diagnosis: Anastomotic leak Acute DVT (deep vein thrombosis) and PE (Pulmonary embolism) Activity: Per Instructions section Non-emergency contact: Primary Care Provider and Surgeon Call non-emergency contact if: you have any medication questions, your pain is worsening, your pain is concerning for you, you have a fever, your temperature is above 101, your wound has increased redness, your wound has increased drainage and your wound pain has increased Follow-up/Referrals: Bertin Harris MD [Physician] - 08/19/21 1:15 pm Caroline Park PA-C [Primary Care Provider] - 08/19/21 12:00 pm (Date & Time 08/19/2021 12:00 PM Provider Shashank Sprague MD Department Merged With [facility] ) Diet: Heart Healthy Addtl Attending Provider Instructions: Post-Surgical ~Discharge Instructions Activity Recommendations: - lifting limitation: (10 pounds for at least 6 weeks), - exercise/sex/sports limit: (nonstrenuous for at least 6 weeks), - driving or machine use limit: (none for 1 week or until pain free and no longer taking narcotic pain medication), - Shower/bathe limit: (may shower , no submerging underwater) Diet: - Resume previous diet SPECIAL CARE INSTRUCTIONS: - May shower. Let water run over area and pat dry. - Surgical nikki will be removed in the office - If you go home with surgical drain, record output daily and as needed and record color. bring record with you to the office. - Wear abdominal binder for support daily, may remove when sitting down if needed - Call the surgeon's office with any questions or concerns - - (ex. temperature higher than 101 degrees F, excessive bleeding or pain). MEDICATIONS: - Resume previous medications unless instructed otherwise by your surgeon. - May take extra strength Tylenol as needed for mild to moderate pain - 650 mg Tylenol every 6 hours as needed - Oxycodone 1 every 4 hours, as needed for moderate to severe pain - If you feel stool output becomes hard and still taking narcotic pain medication, would recommend daily stool softener (Colace) to prevent constipation. FOLLOW UP VISIT: - If not already scheduled, please call the office to schedule a one week follow-up appointment with Dr. Harris. Office number Addtl Net Developer Consultant Provider Instructions: Please continue twice daily subcutaneous injections of Lovenox while taking coumadin 5mg daily. You should be contacted by the [facility] associated with your primary care clinic in [place] after the weekend. They will schedule you for an INR check and adjust your medications as needed. It is recommended that you follow-up with your primary care physician in 1 week after hospital discharge. It was a pleasure taking care of you! Please call if you have any questions or problems. You can reach a [facility] hospitalist on duty at [facility] 24 hours a day by calling [phone]. Take care of yourself. Hoda Porter, [facility] Center[facility] Pending Studies at Discharge: No Stand-Alone Forms: My [facility] Medications and DC Order Prescriptions: New enoxaparin [Lovenox] 150 mg/mL Syringe 141 mg subcut Q12H Qty: 10 RF: 0 warfarin 5 mg Tablet 5 mg PO DAILY@1600 Qty: 30 RF: 0 Continued benazepril-hydrochlorothiazide 20-25 mg Tablet 1 tab PO QAM RF: 0 acetaminophen 500 mg Tablet 1,000 mg PO QID RF: 0 hydrocodone-acetaminophen 5-325 mg tablet 1 tab PO Q4H PRN (Reason: pain) Qty: 14 RF: 0 Discharge Orders: Discharge Order (Routine); Ordered 08/15/21 Ordered By: Bertin Decker/Other Patient Handouts: Ostomy Care: Emptying Your Pouch, What Is an Ileostomy?, Anatomy of the Digestive System, Ileostomy: Caring For Your Stoma, Ileostomy: Changing Your Pouch, Ileostomy Food Blockage, Ileostomy: Nutritional Management, Ileostomy: Selecting Your Pouch Admission Data Admit Date/Time: 08/06/21 14:07 Attending Provider: Bertin Harris Admit Provider: Dipak Costello Primary Care Provider: Caroline Park Other Providers: Bertin Harris ; Dipak Costello ; Heron Gary ; Brendan oNble ; Hoda Porter Other Interventions: Discharge Summary Assessment (RN) Last Done: 08/15/21 12:45
== END 2021-08-15 13:45 | disposition home health service (06) | DRG 329 ==
LOC: ED 10:24 → OR 14:00 → 1E 14:07 → 2S 08-10 13:10 → 3N 08-11 12:16
DX: T88.7XXA Unspecified adverse effect of drug or medicament, initial encounter; K65.1 Peritoneal abscess; E66.01 Morbid (severe) obesity due to excess calories; K66.8 Other specified disorders of peritoneum; T36.0X5A Adverse effect of penicillins, initial encounter; R73.03 Prediabetes; K55.069 Acute infarction of intestine, part and extent unspecified; K91.89 Other postprocedural complications and disorders of digestive system; N17.9 Acute kidney failure, unspecified; C77.2 Secondary and unspecified malignant neoplasm of intra-abdominal lymph nodes; Z68.41 Body mass index [BMI] 40.0-44.9, adult; Y82.8 Other medical devices associated with adverse incidents; C18.1 Malignant neoplasm of appendix; Z86.19 Personal history of other infectious and parasitic diseases; K66.1 Hemoperitoneum; R21 Rash and other nonspecific skin eruption; Z90.49 Acquired absence of other specified parts of digestive tract; I26.99 Other pulmonary embolism without acute cor pulmonale; D68.59 Other primary thrombophilia; I10 Essential (primary) hypertension; D64.9 Anemia, unspecified

== ENCOUNTER 2022-10-31 06:54 | Inpatient (IN) ==
--- NOTE | 2022-10-12 12:24 | PAT Medication Instructions ---
Medication Instructions Date of Service October 12, 2022 Home Medications benazepril 20 mg-hydrochlorothiazide 25 mg tablet 1 tab PO QAM warfarin 5 mg tablet 5 mg PO UD cholecalciferol (vitamin D3) 50 mcg (2,000 unit) capsule 50 mcg PO QAM gabapentin 100 mg capsule 100 mg PO BID ASK your prescriber and surgeon warfarin 5 mg tablet 5 mg PO UD DO NOT take the morning of surgery benazepril 20 mg-hydrochlorothiazide 25 mg tablet 1 tab PO QAM cholecalciferol (vitamin D3) 50 mcg (2,000 unit) capsule 50 mcg PO QAM Take morning of surgery With a small sip of water, OTHERWISE NOTHING TO EAT OR DRINK AFTER MIDNIGHT: gabapentin 100 mg capsule 100 mg PO BID Take evening before surgery gabapentin 100 mg capsule 100 mg PO BID Other Notes If you have any questions please call us at [phone] or [phone] or [phone] or [phone]
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
[~2022-10-31 06:54] MED LIST changes: -BISA-16 PO; +CIPROFLOXACIN / D5W 400 MG/200 ML BAG IV SCH; -CPR500 PO; -ENT3 PO; -HYDR-5688 PO; -HYDR25TA5 PO; +LACTATED RINGER'S 1,000 ML IV SCH; -MELO15TA4 PO; -MTR500 PO; +metroNIDAZOLE 500 MG/100 ML BAG IV SCH
--- NOTE | 2022-10-31 07:23 | History & Physical Bridge Note ---
Date of Service October 31, 2022 History & Physical Bridge Note I have examined the patient, reviewed the History & Physical and in the interval since the performance of the History & Physical I have noted the following changes of clinical significance: no changes noted
[2022-10-31 07:55] LABS: INR 1.1 (0.9-1.1); Partial Thromboplastin Ratio 1.3; Partial Thromboplastin Time 35.5 Seconds (21.0-31.0)
[2022-10-31] MEDS ORDERED: LIDOCAINE 1% LOCAL 20 ML VIAL ONE (09:24)
[2022-10-31] MEDS ORDERED: LIDOCAINE 2% 2 ML VIAL/AMP(20MG/ML) INFIL ONE ×2 (09:27)
[2022-10-31] MEDS ORDERED: MIDAZOLAM HCL 1 MG/ML 2ML VIAL ONE (09:27)
[2022-10-31] MEDS ORDERED: PROPOFOL IV EMULSION 10 MG/ML 20 ML VIAL IV ONE (09:27)
[2022-10-31] MEDS ORDERED: KETAMINE 50 MG/5 ML SYRINGE ONE (09:27)
[2022-10-31] MEDS ORDERED: fentaNYL citrate PF 100 MCG/2 ML VIAL ONE (09:27)
[2022-10-31] MEDS ORDERED: ROCURONIUM BROMIDE 10 MG/ML 5 ML VIAL IV ONE ×2 (09:28)
[2022-10-31] MEDS ORDERED: ONDANSETRON INJ 2 MG/ML 2 ML VIAL ONE (09:32)
[2022-10-31] MEDS ORDERED: DEXAMETHASONE SOD INJ 4 MG/ML VIAL ONE ×2 (09:32)
[2022-10-31] MEDS ORDERED: PHENYLEPHRINE HCL 10 MG/ML VIAL ONE ×2 (10:27)
[2022-10-31] MEDS ORDERED: HYDROmorphone INJ 1 MG/ML SYRINGE ONE ×3 (10:54→13:19)
[2022-10-31] MEDS ORDERED: ePHEDrine sulfate 50 MG/ML AMP IV PRN (11:22)
[2022-10-31] MEDS ORDERED: PROMETHAZINE HCL 12.5 MG in SODIUM CHLORIDE 0.9% 50 ML IV PRN ×2 (11:22→14:17)
[2022-10-31] MEDS ORDERED: NALOXONE HCL 0.4 MG/1 ML VIAL/CARP IV PRN (11:22)
[2022-10-31] MEDS ORDERED: SUGAMMADEX SODIUM 200 MG/2 ML VIAL IV ONE (12:35)
[2022-10-31] MEDS: HYDROmorphone INJ 2 MG/ML SYR/VIAL IV PRN ×4 (13:03→13:19)
--- NOTE | 2022-10-31 13:04 | Post Operative Brief Note ---
Immediate Post Op Note v1 Date of Surgery October 31, 2022 Pre & Post Diagnosis Operation Date: 10/31/22 08:45 Pre-Op Diagnosis: Malignant Neoplasm of Ascending Colon Post-Op Diagnosis: Malignant Neoplasm of Ascending Colon I identified the patient and participated in the time-out.: Yes Procedure Operation Date: 10/31/22 08:45 Actual Procedures p Exploratory Laparotomy, Reversal of Colostomy and Mucous Fistula(Not Applicable) - Bertin Harris MD s Removal of Access Port(Right) - Bertin Harris MD Surgeon Bertin Harris MD Online Marketing Director LEANDER Choudhury assisted with tissue retraction, camera op, closure Estimated Blood Loss 30 Findings Consistent with Post-Op Diagnosis
--- NOTE | 2022-10-31 13:12 | Anesthesiology Progress Note ---
Date of Service October 31, 2022 Anesthesia Post Procedure Vital Signs Vital Signs: Temp Pulse Resp BP Pulse Ox O2 Del Method 10/31/22 07:26 36.6 C 79 18 112/63 94 Room Air Pain Intensity Bilateral Knee: Pain Intensity: 4 Back: Pain Intensity: 5 Transfer of Care Handoff Completed per policy Notes Mental Status: alert / awake / arousable Patient Amnestic to Procedure: Yes Nausea / Vomiting: adequately controlled Pain: adequately controlled Airway Patency, RR, SpO2: stable & adequate BP & HR: stable & adequate Hydration State: stable & adequate Anesthetic Complications: no major complications apparent and Pt Satisfied with anesthetic care
[2022-10-31] MEDS ORDERED: HYDROmorphone INJ 1 MG/ML SYRINGE IV STA (13:21)
[2022-10-31] MEDS ORDERED: ACETAMINOPHEN 1000 MG/100 ML IV IV ONE (13:23)
[2022-10-31] MEDS ORDERED: ACETAMINOPHEN 1,000 MG/100 ML VIAL IV STA (13:27)
--- NOTE | 2022-10-31 13:31 | Operative Report ---
Post Operative Report Pre & Post Diagnosis Operation Date: 10/31/22 08:45 Pre-Op Diagnosis: Malignant Neoplasm of Ascending Colon Post-Op Diagnosis: Malignant Neoplasm of Ascending Colon I identified the patient and participated in the time-out.: Yes Procedure Operation Date: 10/31/22 08:45 Actual Procedures p Exploratory Laparotomy, Reversal of Colostomy and Mucous Fistula(Not Applicable) - Bertin Harris MD s Removal of Access Port(Right) - Bertin Harris MD Surgeon Bertin Harris MD Electrician Ship LEANDER Choudhury assisted with tissue retraction, camera op, closure Estimated Blood Loss 30 Findings Consistent with Post-Op Diagnosis Specimens Piece of ileostomy; the piece of mucous fistula Drains none Anesthesia Type General Complications no immediate complication Description of Procedure patient was taken to the operating room, placed supine on the operating table. A timeout was performed, perioperative antibiotics were administered, SCD boots were placed. After adequate anesthesia and analgesia was obtained, Da Silva catheter was placed. The mucous fistula and ileostomy site were sewn shut with 0 silk suture. Attention was turned to the access port in the right upper chest. This was prepped and draped in the normal sterile fashion. 15 blade scalpel was used to incise into the port cavity. The port was removed bluntly. Backbleeding from the catheter site was controlled with a 3-0 silk stitch. Subcutaneous tissue was closed with 3-0 Vicryl. Skin was closed with running 4-0 Monocryl subcuticular stitch. Dermabond was applied. The abdomen was then prepped and draped in the normal sterile fashion. An in the midline incision was made carried down to the level of the subcutaneous tissue to the level of the fascia. The fascia was incised in the upper midline down into the abdominal cavity. We encountered some adhesions of small bowel loops to the anterior abdominal wall. These were taken down carefully with Metzenbaum scissor dissection. The incision was opened to its fullest extent lysis of adhesions commenced and the bowel was mobilized up to the ileostomy and subsequently to the mucous fistula. We turned our attention first to the ileostomy. Elliptical incision was made around the ostomy carried into the subcutaneous tissues. The level of the fascia was obtained with blunt dissection as well as judicious use of the cautery. The ileostomy was freed up and dropped back into the abdominal cavity. Further dissection freed up the ileum. A site was selected on the ileum and this was transected with the MCKAY stapler. The terminal end of ileostomy was sent off field for specimen. We then turned our attention to the mucous fistula. elliptical incision was made around the mucous fistula and carried into the subcutaneous tissue. The level of fascia was obtained, and the mucous fistula was dropped back into the abdominal cavity. Again further dissection within the abdominal cavity freed up the end of the proximal transverse colon. A site was selected somewhat distal in the transverse colon and the colon was transected with the MCKAY stapler. The mucous fistula was sent for specimen. The transverse colon was then mobilized towards the splenic flexure. The omentum was detached. A [id number] functional end-to-end anastomosis was created between the ileum and the transverse colon using the MCKAY stapler. The common channel defect was closed with the TA stapler. A stitch was placed at the base of 3-0 silk, and the resulting mesenteric defect was closed with a running 3-0 silk suture. The abdomen was copiously irrigated and suctioned free. Hemostasis was adequate. We continued to irrigate the abdomen. Gloves were changed. The fascia in the ileostomy and mucous fistula sites were closed with #1 Prolene suture. Attention was then turned to the fascia in the midline. In the lower midline, where the patient had had a wound VAC in the past, the fascia was quite weak. Decision was made to place retention sutures in addition to the fascial closure with #1 Prolene suture. 3 retention bars were placed of 0 silk suture. The fascia was closed with a running #1 Prolene suture. Again hemostasis was checked and was attended to and was excellent. The skin was closed in all 3 sites with surgical clips. Betadine soaked packing was placed between the nikki in the ostomy and mucous fistula site. Dressings were applied. A binder was applied. He tolerated the procedure without complication, transferred in stable condition to the PACU. All instrument, needle, and sponge counts were correct at the end of the case. My dental assistant teacher was necessary throughout the procedure for tissue retraction, possible camera operation, and closure of the wounds. I understand that section 1842(b)(7)(D) of the Social Security act generally prohibits Medicare physician fee schedule payment for the services of assistants at surgery in teaching hospitals when qualified residents are available to furnish such services. I certify that the services for which payment is claimed were medically necessary and that no qualified resident was available to perform the services. I further understand that these services are subject to postpayment review by the Medicare carrier. I attest to the content of the Intraoperative Record and any orders documented therein. Any exceptions are noted below.
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
[2022-10-31] MEDS ORDERED: ACETAMINOPHEN 1,000 MG/100 ML VIAL IV PRN (14:17)
[2022-10-31] MEDS ORDERED: ONDANSETRON INJ 2 MG/ML 2 ML VIAL IV PRN (14:17)
[2022-10-31] MEDS ORDERED: diphenhydrAMINE Capsule 25 MG CAP PO PRN (14:17)
[2022-10-31] MEDS: LACTATED RINGER'S 1,000 ML IV SCH (15:02)
[2022-10-31] MEDS: KETOROLAC 30 MG/ML VIAL IV PRN ×2 (15:05→21:34)
[2022-10-31] MEDS: MoRPHine SULFATE 2 MG/ML CARP IV PRN (18:37)
[2022-10-31] MEDS: GABAPENTIN 100 MG CAP PO SCH (21:31)
[2022-11-01] MEDS: MoRPHine SULFATE 2 MG/ML CARP IV PRN ×4 (00:19→11:46)
[2022-11-01] MEDS: KETOROLAC 30 MG/ML VIAL IV PRN (05:03)
[2022-11-01] MEDS ORDERED: ACETAMINOPHEN 1,000 MG/100 ML VIAL IV STA (07:15)
[2022-11-01] MEDS ORDERED: KETOROLAC TROMETHAMINE 15 MG/ML VIAL IV SCH (07:30)
[2022-11-01 08:01] LABS: Basophils # (auto) 0.02 K/uL (0.00-0.20); Basophils % (auto) 0.1 %; Hematocrit (blood only) 36.1 % (42.0-52.0); Hemoglobin 12.1 g/dl (14.0-18.0); Immature Granulocytes # (auto) 0.05 K/uL (0.01-0.20); Immature Granulocytes % (auto) 0.4 %; Lymphocytes # (auto) 1.33 K/uL (1.20-3.40); Lymphocytes % (auto) 9.3 %; Mean Corpuscular Hemoglobin 31.2 pg (25.0-34.0); Mean Corpuscular Hgb Conc 33.5 g/dL (32.0-36.0); Mean Platelet Volume 9.4 fL (9.4-12.4); Monocytes # (auto) 0.69 K/uL (0.11-0.59); Monocytes % (auto) 4.8 %; Neutrophils # (auto) 12.15 K/uL (1.40-6.50); Neutrophils % (auto) 85.4 %; Platelet Count 192 K/uL (130-400); RDW Coefficient of Variation 13.3 % (11.5-14.5); RDW Standard Deviation 45.5 fL (36.4-46.3); Red Blood Count 3.88 M/uL (4.70-6.10); White Blood Count 14.24 K/ul (4.8-10.8)
[2022-11-01] MEDS: GABAPENTIN 100 MG CAP PO SCH ×2 (08:26→20:11)
[2022-11-01 08:29] LABS: BUN Creatinine Ratio 15.8 (10-20); Calcium 8.5 mg/dl (8.6-10.3); Creatinine Clr Calc Pharmacy 39.5 ml/min; Est GFR (African American) 30.6 ml/min; Est GFR (Non-African American) 26.4 ml/min; Potassium 4.5 mmol/L (3.5-5.1)
[2022-11-01] MEDS: lisinopril 20 MG TAB PO SCH (08:36)
[2022-11-01] MEDS ORDERED: Nursing to Pharmacy Communication SCH (10:00)
[2022-11-01] MEDS: LACTATED RINGER'S 1,000 ML IV SCH ×2 (10:07→20:17)
--- NOTE | 2022-11-01 10:21 | Surgery Progress Note ---
Date of Service November 01, 2022 Assessment & Plan (1) Status post reversal of ileostomy: (2) History of pulmonary embolism: (3) Superior mesenteric vein thrombosis: Plan POD#1 s/p ex lap with takedown of ileostomy and mucus fistula doing well pain control encourage OOB; IS; pulm toilet Cr 2.4 today - hold toradol increase fluids H/H stable - start Lovenox this am Admission and Anticipated Discharge Date Admission Date: October 31, 2022 Subjective doing fairly well. no nausea/vomiting; pain controlled with pain meds. no fevers. Physical Exam Physical Exam: NAD, A&Ox3 AFVSS Abd soft, MIld TTP diffusely dressings C/D/I Da Silva catheter with adequate urine Results & Data Vital Signs (Past 12 Hours) Vital Signs Temp Pulse Resp BP Pulse Ox O2 Del Method O2 Flow Rate 11/01/22 07:18 36.5 C 86 14 96/59 L 96 Room Air 11/01/22 04:00 36.7 C 74 18 115/72 96 Room Air 10/31/22 23:45 36.6 C 75 18 98/63 L 97 Nasal Cannula 1.5
[2022-11-01] MEDS: ENOXAPARIN INJ 120 MG/0.8 ML SYR SQ SCH ×2 (10:38→20:11)
[2022-11-01] MEDS: MoRPHine SULFATE 4 MG/ML 1 ML CARP\\VIAL IV PRN ×3 (13:32→23:59)
--- NOTE | 2022-11-01 14:59 | Hospitalist Progress Note ---
Date of Service November 01, 2022 Assessment & Plan (1) Status post reversal of ileostomy: Plan: 67 y/o male with a history appendiceal cancer s/p right hemicolectomy and subsequent ileostomy who underwent reversal of the ileostomy today and for whom we have been consulted for post-op medical management. Outpatient records including notes from oncology, general surgery, PCP and coag clinic were extensively reviewed. Reversal of ileostomy and port removal on 10/31/2022 - Spoke with primary team - due to concerns for blood loss during surgery/risk of post-op bleeding, will recheck CBC in AM and determine timing of resumption of warfarin, tentatively planning to restart Lovenox in the AM - Pain control, diet per primary team - Encourage incentive spirometry - SCDs for DVT prophylaxis for now, encourage OOB when okay with surgery - Continue YAJAIRA inhibitor for BP (with holds) but hold diuretic for now -Clinically much better but complains to abdominal pain with some nausea -Remains stable with stable labs and hemoglobin -Monitor CBC and PRP (2) 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: Plan: Has had right hemicolectomy and ileostomy Has been followed up by general surgery oncologist (3) Hypertension: Plan: Remains stable Continue current medicine except diuretics (4) History of pulmonary embolism: Plan: Coumadin is on hold due to recent surgery Has been started on Lovenox subcu as per surgery Will restart Coumadin and monitor INR Stop Lovenox when INR is >2 Admission and Anticipated Discharge Date Admission Date: October 31, 2022 Subjective 11/01/2022 The patient was seen and examined in medical floor in presence of the He is a status post reversal of colostomy Has been complaining of lot of pain at the site of surgery minimal nausea Denies any other symptoms Review of Systems Review of Systems: All systems reviewed and are unremarkable except as noted below Gastrointestinal: Abdominal pain at the site of surgery Physical Exam Physical Exam: Sitting on a chair without any acute distress except pain at the site of surgery Constitutional: well developed, well nourished, + ill appearing and + obese Eyes: PERRL, conjunctivae normal, anicteric sclerae ENMT: external ear and nose normal, oropharynx normal Neck: trachea midline, no thyromegaly Respiratory: no respiratory distress Auscultation: lungs clear to auscultation bilaterally Cardiovascular: Rate/Rhythm: regular rate and regular rhythm; not tachycardic Heart Sounds: normal S1 and normal S2; no murmur Extremities: no edema Gastrointestinal (Abdomen): Inspection/Auscultation: + abdomen distended; + abnormal bowel sounds Percussion/Palpation: + abdomen tender (All over and is bandaged) and abdomen soft Musculoskeletal: No acute arthritis involving any of the joint Neurologic: normal touch/pain/proprioception and moves all extremities; no focal motor deficits Psychiatric: A+Ox3, euthymic affect Lymphatic: no cervical or axillary lymphadenopathy Results & Data Results & Data Vital Signs (Past 12 Hours) Vital Signs Temp Pulse Resp BP BP Pulse Ox O2 Del Method 11/01/22 12:52 36.6 C 87 18 100/62 95 Room Air 11/01/22 11:33 36.5 C 84 14 91/54 L 96 Room Air 11/01/22 07:18 36.5 C 86 14 96/59 L 96 Room Air 11/01/22 04:00 36.7 C 74 18 115/72 96 Room Air Laboratory Results Short CBC 11/01/22 Range/Units 07:28 WBC 14.24 H (4.8-10.8) K/ul Hgb 12.1 L (14.0-18.0) g/dl Hct 36.1 L (42.0-52.0) % Plt Count 192 (130-400) K/uL BMP 11/01/22 07:28 Sodium 136 Potassium 4.5 Chloride 104 Carbon Dioxide 23 BUN 38 H Creatinine 2.41 H Glucose 126 H Calcium 8.5 L Medications Administered Current Inpatient Medications Diphenhydramine HCl (Diphenhydramine Capsule 25 Mg Cap) 25 mg PO Q4H PRN PRN Reason: hives, itching or insomnia Stop: 11/30/22 14:16 Enoxaparin Sodium (Enoxaparin Inj 120 Mg/0.8 Ml Syr) 120 mg SQ Q12H SIM Stop: 12/01/22 08:59 Last Admin: 11/01/22 10:38 Dose: 120 mg Gabapentin (Gabapentin 100 Mg Cap) 100 mg PO BID SIM Stop: 11/30/22 20:59 Last Admin: 11/01/22 08:26 Dose: 100 mg Promethazine HCl 12.5 mg/ (Sodium Chloride) 50.5 mls @ 204 mls/hr IV Q6H PRN PRN Reason: Nausea And Vomiting Stop: 11/30/22 14:16 Lactated Ringer's (Lr) 1,000 mls @ 100 mls/hr IV .Q10H [facility] Stop: 11/30/22 14:44 Last Infusion: 11/01/22 11:27 Dose: 100 mls/hr Acetaminophen (Ofirmev) 1,000 mg in 100 mls @ 400 mls/hr IV Q8H [facility] Stop: 11/04/22 15:59 Lisinopril (Lisinopril 20 Mg Tab) 20 mg PO QAM [facility] Stop: 12/01/22 08:59 Last Admin: 11/01/22 08:36 Dose: Not Given Morphine Sulfate (Morphine Sulfate 2 Mg/Ml Carp) 2 mg IV Q2H PRN PRN Reason: Pain (1,2,3,4,5) & Pre PT Stop: 11/14/22 14:16 Last Admin: 11/01/22 11:46 Dose: 2 mg Morphine Sulfate (Morphine Sulfate 4 Mg/Ml 1 Ml Carp\Vial) 4 mg IV Q4 PRN PRN Reason: severe pain 6-10 Stop: 11/15/22 10:14 Last Admin: 11/01/22 13:32 Dose: 4 mg Ondansetron HCl (Ondansetron Inj 2 Mg/Ml 2 Ml Vial) 4 mg IV Q4H PRN PRN Reason: Nausea And Vomiting Stop: 11/30/22 14:16
[2022-11-01] MEDS: ACETAMINOPHEN 1,000 MG/100 ML VIAL IV SCH ×2 (16:08→23:59)
[2022-11-01] MEDS: WARFARIN SOD 5 MG TAB PO SCH (16:42)
[2022-11-02] MEDS: MoRPHine SULFATE 4 MG/ML 1 ML CARP\\VIAL IV PRN ×5 (04:04→21:09)
[2022-11-02] MEDS: LACTATED RINGER'S 1,000 ML IV SCH ×2 (06:21→16:59)
[2022-11-02] MEDS: MoRPHine SULFATE 2 MG/ML CARP IV PRN (06:22)
[2022-11-02 08:20] LABS: Basophils # (auto) 0.03 K/uL (0.00-0.20); Basophils % (auto) 0.2 %; Eosinophils # (auto) 0.15 K/uL (0.00-0.50); Eosinophils % (auto) 1.1 %; Hematocrit (blood only) 26.8 % (42.0-52.0); Hemoglobin 9.2 g/dl (14.0-18.0); Immature Granulocytes # (auto) 0.06 K/uL (0.01-0.20); Immature Granulocytes % (auto) 0.4 %; Lymphocytes # (auto) 2.68 K/uL (1.20-3.40); Lymphocytes % (auto) 18.9 %; Mean Corpuscular Hemoglobin 31.6 pg (25.0-34.0); Mean Corpuscular Hgb Conc 34.3 g/dL (32.0-36.0); Mean Corpuscular Volume 92.1 fL (80.0-100.0); Mean Platelet Volume 9.4 fL (9.4-12.4); Monocytes % (auto) 7.1 %; Neutrophils # (auto) 10.23 K/uL (1.40-6.50); Neutrophils % (auto) 72.3 %; Platelet Count 171 K/uL (130-400); RDW Coefficient of Variation 13.6 % (11.5-14.5); RDW Standard Deviation 45.9 fL (36.4-46.3); Red Blood Count 2.91 M/uL (4.70-6.10); White Blood Count 14.15 K/ul (4.8-10.8)
[2022-11-02] MEDS: ACETAMINOPHEN 1,000 MG/100 ML VIAL IV SCH ×2 (08:24→15:52)
[2022-11-02] MEDS: GABAPENTIN 100 MG CAP PO SCH ×2 (08:24→21:56)
[2022-11-02 08:37] LABS: BUN Creatinine Ratio 21.2 (10-20); Calcium 7.7 mg/dl (8.6-10.3); Creatinine Clr Calc Pharmacy 49.4 ml/min; Est GFR (Non-African American) 34.5 ml/min; Potassium 4.3 mmol/L (3.5-5.1)
[2022-11-02 08:41] LABS: INR 1.3 (0.9-1.1); Prothrombin Time 13.8 Seconds (9.0-12.0)
[2022-11-02] MEDS: ENOXAPARIN INJ 120 MG/0.8 ML SYR SQ SCH (08:42)
[2022-11-02] MEDS: lisinopril 20 MG TAB PO SCH (08:43)
--- NOTE | 2022-11-02 10:44 | Surgery Progress Note ---
Date of Service November 02, 2022 Assessment & Plan (1) Status post reversal of ileostomy: (2) History of pulmonary embolism: (3) Superior mesenteric vein thrombosis: Plan POD#2 s/p ex lap with takedown of ileostomy and mucus fistula doing well pain control encourage OOB; IS; pulm toilet significant drop H/H - stop Lovenox and Coumadin monitor H/H later today d/c Da Silva catheter Admission and Anticipated Discharge Date Admission Date: October 31, 2022 Subjective pain controlled with current meds; no nausea/vomiting; some loose BMs Physical Exam Physical Exam: NAD, A&Ox3 AFVSS Abd soft, MIld TTP diffusely packing removed from ostomy sites significant oozing from sites Da Silva catheter with adequate urine Results & Data Vital Signs (Past 12 Hours) Vital Signs Temp Pulse Pulse Resp BP BP Pulse Ox 11/02/22 08:29 36.9 C 82 16 94/55 L 94 11/02/22 00:06 88 93 11/01/22 22:54 36.8 C 95 H 17 100/80 94 O2 Del Method 11/02/22 08:29 Room Air 11/02/22 00:06 Room Air 11/01/22 22:54 Room Air
--- NOTE | 2022-11-02 14:51 | Hospitalist Progress Note ---
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 He is being managed for the following: (1) Status post reversal of ileostomy: Reversal of ileostomy and port removal on 10/31/2022. Pt tolerating diet and moving bowels ok today w/ HnH drop, holding lovenox and coumadin Resume anticoagulation when bleeding risk deemed minimal per Sx. Pain control, diet per primary team Encourage OOB & PT/OT when ok w/ Sx, IS. 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 (4) History of pulmonary embolism: Plan: Coumadin is on hold due to recent surgery DVT Px: coumadin on hold. Full code. Admission and Anticipated Discharge Date Admission Date: October 31, 2022 Subjective patient was seen and examined at bedside in medical floor. Patient was lying in bed, on room air, resting comfortably, not in any acute distress. Patient reports eating okay, moving loose stools, denies fever/chills/headache/dizziness. Reports operative site pain under control. Physical Exam Physical Exam: GENERAL: Alert and oriented x3. NAD, on RA. Obese Class II. HEENT: No pallor, no icterus. Pupils equal, round and reactive to light. Oral mucosa moist. NECK: No JVD, no neck masses. HEART: S1 and S2 heard. Regular rate and rhythm. No murmur, no gallop. RESPIRATORY SYSTEM: Normal AP diameter. No accessory muscle use. No wheezing, no crackles. ABDOMEN: Soft, bowel sounds present, mildly TTP diffuse, + distention. Bandaged/packing all over. CENTRAL NERVOUS SYSTEM: No facial droop. Speech is clear. Obeys simple commands. Moves extremities. EXTREMITIES: No edema, no erythema seen. Results & Data Results & Data Vital Signs (Past 12 Hours) Vital Signs Temp Pulse Resp BP Pulse Ox O2 Del Method 11/02/22 08:29 36.9 C 82 16 94/55 L 94 Room Air
[2022-11-02 15:20] LABS: Basophils # (auto) 0.04 K/uL (0.00-0.20); Basophils % (auto) 0.3 %; Eosinophils # (auto) 0.11 K/uL (0.00-0.50); Eosinophils % (auto) 0.9 %; Hematocrit (blood only) 24.9 % (42.0-52.0); Hemoglobin 8.3 g/dl (14.0-18.0); Immature Granulocytes # (auto) 0.06 K/uL (0.01-0.20); Immature Granulocytes % (auto) 0.5 %; Lymphocytes # (auto) 2.16 K/uL (1.20-3.40); Lymphocytes % (auto) 17.1 %; Mean Corpuscular Hemoglobin 31.2 pg (25.0-34.0); Mean Corpuscular Hgb Conc 33.3 g/dL (32.0-36.0); Mean Corpuscular Volume 93.6 fL (80.0-100.0); Mean Platelet Volume 9.5 fL (9.4-12.4); Monocytes # (auto) 0.96 K/uL (0.11-0.59); Monocytes % (auto) 7.6 %; Neutrophils # (auto) 9.27 K/uL (1.40-6.50); Neutrophils % (auto) 73.6 %; Platelet Count 161 K/uL (130-400); RDW Coefficient of Variation 13.7 % (11.5-14.5); RDW Standard Deviation 46.7 fL (36.4-46.3); Red Blood Count 2.66 M/uL (4.70-6.10)
[2022-11-02] MEDS ORDERED: SODIUM CHLORIDE 0.9% 250 ML IV PRN (16:16)
[2022-11-02] MEDS ORDERED: PHYTONADIONE 2.5 MG in DEXTROSE 5% 50 ML IV ONE (16:45)
--- NOTE | 2022-11-02 17:04 | Communication Note ---
Date of Service: November 02, 2022 Saw patient at 1630. H/H drop to 8.3/24 - Lovenox stopped this am. feeling ok, some abdominal pain. no fevers; VSS. mild dizziness with ambulation. few episodes of bloody diarrhea. will transfuse 1 unit PRBC; recheck H/H. Vitamin K administered. Transfer to Med/Surg/Tele for closer monitoring. Family updated on situation. Will continue to hold anticoagulation for now.
[2022-11-02 23:28] LABS: Hematocrit (blood only) 25.8 % (42.0-52.0); Hemoglobin 8.7 g/dl (14.0-18.0)
[2022-11-03] MEDS: MoRPHine SULFATE 4 MG/ML 1 ML CARP\\VIAL IV PRN ×2 (00:40→07:32)
[2022-11-03] MEDS: ACETAMINOPHEN 1,000 MG/100 ML VIAL IV SCH ×3 (00:47→17:39)
[2022-11-03] MEDS: LACTATED RINGER'S 1,000 ML IV SCH ×2 (03:58→14:50)
[2022-11-03 04:17] LABS: Basophils # (auto) 0.03 K/uL (0.00-0.20); Basophils % (auto) 0.2 %; Eosinophils # (auto) 0.26 K/uL (0.00-0.50); Hemoglobin 8.7 g/dl (14.0-18.0); Immature Granulocytes # (auto) 0.09 K/uL (0.01-0.20); Immature Granulocytes % (auto) 0.7 %; Lymphocytes # (auto) 2.76 K/uL (1.20-3.40); Lymphocytes % (auto) 21.1 %; Mean Corpuscular Hemoglobin 31.1 pg (25.0-34.0); Mean Corpuscular Hgb Conc 33.5 g/dL (32.0-36.0); Mean Corpuscular Volume 92.9 fL (80.0-100.0); Mean Platelet Volume 9.3 fL (9.4-12.4); Monocytes # (auto) 0.87 K/uL (0.11-0.59); Monocytes % (auto) 6.6 %; Neutrophils # (auto) 9.08 K/uL (1.40-6.50); Neutrophils % (auto) 69.4 %; Nucleated RBC # (auto) 0.03 K/uL (0.00-0.12); Nucleated RBC % (auto) 0.2 %; Platelet Count 164 K/uL (130-400); RDW Coefficient of Variation 14.1 % (11.5-14.5); RDW Standard Deviation 47.7 fL (36.4-46.3); White Blood Count 13.09 K/ul (4.8-10.8)
[2022-11-03 04:30] LABS: INR 1.2 (0.9-1.1); Prothrombin Time 12.9 Seconds (9.0-12.0)
[2022-11-03 04:53] LABS: Calcium 7.8 mg/dl (8.6-10.3); Potassium 4.1 mmol/L (3.5-5.1)
[2022-11-03 04:59] LABS: BUN Creatinine Ratio 22.4 (10-20); Creatinine Clr Calc Pharmacy 62.2 ml/min; Est GFR (African American) 53.4 ml/min; Est GFR (Non-African American) 46.1 ml/min
[2022-11-03] MEDS ORDERED: NALOXONE HCL 0.4 MG/1 ML VIAL/CARP IV PRN (08:24)
[2022-11-03] MEDS ORDERED: KETOROLAC TROMETHAMINE 15 MG/ML VIAL IV PRN (08:45)
[2022-11-03] MEDS: lisinopril 20 MG TAB PO SCH (09:12)
[2022-11-03] MEDS: GABAPENTIN 100 MG CAP PO SCH ×2 (09:12→20:33)
--- NOTE | 2022-11-03 10:18 | Surgery Progress Note ---
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 multiple episodes of diarrhea with blood; no nausea/vomiting; no fevers/chills Physical Exam Physical Exam: NAD, A&Ox3 AFVSS Abd soft, MIld TTP diffusely incision with ecchymosis Results & Data Vital Signs (Past 12 Hours) Vital Signs Temp Pulse Pulse Resp BP BP Pulse Ox 11/03/22 08:19 36.7 C 86 18 112/71 95 11/03/22 02:50 36.6 C 86 18 94/55 L 102/56 L 96 11/02/22 23:40 36.7 C 91 H 18 134/62 94 O2 Del Method 11/03/22 08:19 Room Air 11/03/22 02:50 Room Air 11/02/22 23:40 Room Air
[2022-11-03] MEDS: SODIUM CHLORIDE 0.9% 1,000 ML IV SCH (11:04)
[2022-11-03] MEDS: MoRPHine SULFATE PCA 30 MG/30 ML IV PRN (11:18)
--- NOTE | 2022-11-03 14:23 | Hospitalist Progress Note ---
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 He is being managed for the following: (1) Status post reversal of ileostomy: Reversal of ileostomy and port removal on 10/31/2022. 11/02 w/ HnH drop, holding lovenox and coumadin --> s/p 1 unit prbc Pt still w/ bloody BMs, but Hb has been stable. Resume anticoagulation when bleeding risk deemed minimal per Sx. Pain control, diet per primary team Encourage OOB & PT/OT when ok w/ Sx, IS. 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 (4) History of pulmonary embolism: Plan: Coumadin is on hold due to recent surgery DVT Px: coumadin on hold. scds Full code. Admission and Anticipated Discharge Date Admission Date: October 31, 2022 Subjective patient was seen and examined at bedside in medical floor. Patient was lying in bed, on room air, resting comfortably, not in any acute dis tress. Pt w/ multiple episodes of bloody BMs, no belly pain/fever/chest pain/dizziness. Hb has been stable after 1 unit PRbC transfusion yesterday. Reports operative site pain , being started on RARE/ENDANGERED SPECIES SPECIALIST pump per Sx. Physical Exam Physical Exam: GENERAL: Alert and oriented x3. NAD, on RA. Obese Class II. HEENT: No pallor, no icterus. Pupils equal, round and reactive to light. Oral mucosa moist. NECK: No JVD, no neck masses. HEART: S1 and S2 heard. Regular rate and rhythm. No murmur, no gallop. RESPIRATORY SYSTEM: Normal AP diameter. No accessory muscle use. No wheezing, no crackles. ABDOMEN: Soft, bowel sounds present, mildly TTP diffuse, + distention. Bandaged/packing all over. CENTRAL NERVOUS SYSTEM: No facial droop. Speech is clear. Obeys simple commands. Moves extremities. EXTREMITIES: No edema, no erythema seen. Results & Data Results & Data Vital Signs (Past 12 Hours) Vital Signs Temp Pulse Pulse Resp BP BP Pulse Ox 11/03/22 08:19 36.7 C 86 18 112/71 95 11/03/22 02:50 36.6 C 86 18 94/55 L 102/56 L 96 O2 Del Method 11/03/22 08:19 Room Air 11/03/22 02:50 Room Air
[2022-11-03 15:03] LABS: Hematocrit (blood only) 23.3 % (42.0-52.0); Hemoglobin 7.8 g/dl (14.0-18.0)
[2022-11-03] MEDS ORDERED: SODIUM CHLORIDE 0.9% 250 ML IV PRN (15:51)
[2022-11-03] MEDS ORDERED: D5W AND 1/2NSS + 20MEQ KCL 20 MEQ/1,000 ML BAG IV SCH (16:00)
[2022-11-04] MEDS: ACETAMINOPHEN 1,000 MG/100 ML VIAL IV SCH ×2 (00:05→09:00)
[2022-11-04 05:28] LABS: Hematocrit (blood only) 24.8 % (42.0-52.0); Hemoglobin 8.4 g/dl (14.0-18.0); Mean Corpuscular Hgb Conc 33.9 g/dL (32.0-36.0); Mean Corpuscular Volume 91.5 fL (80.0-100.0); Mean Platelet Volume 9.2 fL (9.4-12.4); Nucleated RBC # (auto) 0.09 K/uL (0.00-0.12); Nucleated RBC % (auto) 0.9 %; Platelet Count 161 K/uL (130-400); RDW Coefficient of Variation 14.8 % (11.5-14.5); RDW Standard Deviation 48.6 fL (36.4-46.3); Red Blood Count 2.71 M/uL (4.70-6.10); White Blood Count 10.15 K/ul (4.8-10.8)
[2022-11-04 05:42] LABS: BUN Creatinine Ratio 19.2 (10-20); Calcium 7.8 mg/dl (8.6-10.3); Creatinine Clr Calc Pharmacy 71.9 ml/min; Est GFR (African American) 64.5 ml/min; Est GFR (Non-African American) 55.7 ml/min; Potassium 3.8 mmol/L (3.5-5.1)
[2022-11-04 06:04] LABS: Magnesium 1.9 mg/dl (1.7-2.4); Phosphorus 1.5 mg/dl (2.5-4.9)
[2022-11-04] MEDS ORDERED: POTASSIUM PHOS 3 MMOL/1 ML INFUSION IV STA (06:09)
[2022-11-04] MEDS ORDERED: LACTATED RINGER'S 1,000 ML IV ONE (06:11)
[2022-11-04] MEDS ORDERED: POTASSIUM PHOSPHATE 40 MMOL in SODIUM CHLORIDE 0.9% 1,000 ML IV ONE (06:15)
[2022-11-04 06:31] LABS: Prothrombin Time 11.1 Seconds (9.0-12.0)
[2022-11-04] MEDS: GABAPENTIN 100 MG CAP PO SCH ×2 (08:11→19:52)
[2022-11-04] MEDS: lisinopril 20 MG TAB PO SCH (08:12)
--- NOTE | 2022-11-04 08:48 | Surgery Progress Note ---
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 multiple BMs overnight; less red, now brown in color. positive flatus. tolerating clears. received one unit PRBC last evening. H/H 10/06 today Physical Exam Physical Exam: NAD, A&Ox3 AFVSS Abd soft, MIld TTP diffusely incisions with ecchymosis; no active bleeding Ewing and retention sutures in place Results & Data Vital Signs (Past 12 Hours) Vital Signs Temp Pulse Pulse Pulse Resp BP BP 11/04/22 08:08 36.8 C 95 H 19 116/74 11/04/22 03:00 36.6 C 81 18 11/04/22 00:54 94 H 11/03/22 23:02 37 C 86 18 11/03/22 21:02 36.5 C 82 14 110/72 BP Pulse Ox O2 Del Method 11/04/22 08:08 95 Room Air 11/04/22 03:00 97/57 L 94 Room Air 11/04/22 00:54 11/03/22 23:02 116/56 L 95 Room Air 11/03/22 21:02 96
[2022-11-04] MEDS: SODIUM CHLORIDE 0.9% 1,000 ML IV SCH (11:08)
[2022-11-04] MEDS: MoRPHine SULFATE PCA 30 MG/30 ML IV PRN (14:01)
[2022-11-04 15:31] LABS: Hematocrit (blood only) 24.2 % (42.0-52.0)
--- NOTE | 2022-11-04 17:25 | Hospitalist Progress Note ---
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 He is being managed for the following: (1) Status post reversal of ileostomy: Reversal of ileostomy and port removal on 10/31/2022. 11/02 w/ HnH drop, holding lovenox and coumadin --> s/p 1 unit prbc Pt still w/ bloody BMs, but Hb has been stable. Resume anticoagulation when bleeding risk deemed minimal per Sx. Pain control, diet per primary team Encourage OOB & PT/OT when ok w/ Sx, IS. Hb stable around 8, now w/ brown bm. HnH in am or prn. 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 (4) History of pulmonary embolism: Plan: Coumadin is on hold due to recent surgery DVT Px: coumadin on hold. scds Full code. Admission and Anticipated Discharge Date Admission Date: October 31, 2022 Subjective patient was seen and examined at bedside in medical floor. Patient was lying in bed, on room air, resting comfortably, not in any acute distress. Pt w/ now brown BMs, no fever/chest pain/dizziness. Hb has been stable around 8, s/p 2 units prbc so far. Reports operative site pain , being started on LABORER WHARF pump per Sx. Physical Exam Physical Exam: GENERAL: Alert and oriented x3. NAD, on RA. Obese Class II. HEENT: No pallor, no icterus. Pupils equal, round and reactive to light. Oral mucosa moist. NECK: No JVD, no neck masses. HEART: S1 and S2 heard. Regular rate and rhythm. No murmur, no gallop. RESPIRATORY SYSTEM: Normal AP diameter. No accessory muscle use. No wheezing, no crackles. ABDOMEN: Soft, bowel sounds present, mildly TTP diffuse, + distention. Bandaged/packing all over. CENTRAL NERVOUS SYSTEM: No facial droop. Speech is clear. Obeys simple commands. Moves extremities. EXTREMITIES: No edema, no erythema seen. Results & Data Results & Data Vital Signs (Past 12 Hours) Vital Signs Temp Pulse Pulse Resp BP BP Pulse Ox 11/04/22 15:00 11/04/22 16:16 36.9 C 81 18 93/59 L 94 11/04/22 08:00 72 11/04/22 12:30 36.9 C 77 18 91/56 L 95 11/04/22 08:08 36.8 C 95 H 19 116/74 95 Pulse Ox O2 Del Method O2 Del Method 11/04/22 15:00 96 Room Air 11/04/22 16:16 Room Air 11/04/22 08:00 11/04/22 12:30 Room Air 11/04/22 08:08 Room Air
[2022-11-05 07:12] LABS: Hematocrit (blood only) 24.7 % (42.0-52.0); Hemoglobin 8.2 g/dl (14.0-18.0); Mean Corpuscular Hemoglobin 31.4 pg (25.0-34.0); Mean Corpuscular Hgb Conc 33.2 g/dL (32.0-36.0); Mean Corpuscular Volume 94.6 fL (80.0-100.0); Mean Platelet Volume 9.1 fL (9.4-12.4); Nucleated RBC # (auto) 0.03 K/uL (0.00-0.12); Nucleated RBC % (auto) 0.4 %; Platelet Count 166 K/uL (130-400); RDW Standard Deviation 50.1 fL (36.4-46.3); Red Blood Count 2.61 M/uL (4.70-6.10); White Blood Count 8.17 K/ul (4.8-10.8)
[2022-11-05 07:40] LABS: Prothrombin Time 10.9 Seconds (9.0-12.0)
[2022-11-05 08:13] LABS: BUN Creatinine Ratio 15.7 (10-20); Calcium 8.2 mg/dl (8.6-10.3); Creatinine Clr Calc Pharmacy 80.4 ml/min; Est GFR (African American) 74.8 ml/min; Est GFR (Non-African American) 64.6 ml/min; Magnesium 1.7 mg/dl (1.7-2.4); Phosphorus 2.4 mg/dl (2.5-4.9); Potassium 3.8 mmol/L (3.5-5.1)
[2022-11-05] MEDS ORDERED: MAGNESIUM SULFATE / D5W 1 GM/100 ML BAG IV ONE (08:34)
[2022-11-05] MEDS ORDERED: POTASSIUM PHOS 3 MMOL/1 ML INFUSION IV STA (08:34)
[2022-11-05] MEDS ORDERED: POTASSIUM PHOSPHATE 9 MMOL in SODIUM CHLORIDE 0.9% 250 ML IV ONE (08:45)
[2022-11-05] MEDS: lisinopril 20 MG TAB PO SCH (08:48)
[2022-11-05] MEDS: SODIUM CHLORIDE 0.9% 1,000 ML IV SCH (08:49)
[2022-11-05] MEDS: GABAPENTIN 100 MG CAP PO SCH ×2 (08:49→20:22)
--- NOTE | 2022-11-05 14:57 | Surgery Progress Note ---
Date of Service November 05, 2022 Assessment & Plan (1) Status post reversal of ileostomy: (2) History of pulmonary embolism: (3) Superior mesenteric vein thrombosis: Plan POD #5 Ex. Lap. with takedown of ileostomy and mucus fistula WBC within normal limits. H and H stable. Continues to use SUPERINTENDENT LOCAL for pain control- will consider stopping this tomorrow, 11/06. He continues to do well. He reports that he is hungry and would like to try some solid food- advanced to low fiber diet. Continues to move his bowels and reports that they are less and less bloody. Patient see and examined with Dr. Cruz. POD#4 s/p ex lap with takedown of ileostomy and mucus fistula Started on Lovenox, H/H drop; has required 2 units PRBCs, H/H 10/06 today doing better continue SUPERINTENDENT LOCAL for better pain control encourage OOB; IS; pulm toilet PT/OT eval continue to hold Lovenox/anticoagulation; track H/H advance to full liquid diet Admission and Anticipated Discharge Date Admission Date: October 31, 2022 Subjective Oneal is resting in bed, he reports that he is doing well. He does have SUPERINTENDENT LOCAL that is helping with pain. He denies any nausea or vomiting. He is tolerating a full liquid diet and would like to try solid food today. He is continues to move his bowels, reports less and less blood. Review of Systems Constitutional: no fever and no chills Respiratory: no dyspnea Gastrointestinal: + abdominal pain (tender at incision site. NO signs of infection. ); no nausea and no vomiting Physical Exam Physical Exam: NAD, A&Ox3 AFVSS Abd soft, MIld TTP diffusely incisions with ecchymosis; no active bleeding Lavern and retention sutures in place Results & Data Vital Signs (Past 12 Hours) Vital Signs Temp Pulse Pulse Resp BP Pulse Ox O2 Del Method 11/05/22 11:53 36.9 C 83 18 100/60 94 Room Air 11/05/22 09:00 80 11/05/22 08:12 37.1 C 81 18 114/68 94 Room Air 11/05/22 03:00 36.9 C 86 20 104/64 94 Nasal Cannula O2 Flow Rate 11/05/22 11:53 11/05/22 09:00 11/05/22 08:12 11/05/22 03:00 2 PG Care Time/CCT Total # of Minutes Spent Total Time Spent with Patient: Total time spent is greater than 50% in coordination of care (as documented) at patient's floor/unit and/or counseling patient: Coding Level of Care Code 81460 Post Operative Follow-Up Diagnoses Status post reversal of ileostomy Z98.890 History of pulmonary embolism Z86.711 Superior mesenteric vein thrombosis K55.069
--- NOTE | 2022-11-05 16:33 | Hospitalist Progress Note ---
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 He is being managed for the following: (1) Status post reversal of ileostomy: Reversal of ileostomy and port removal on 10/31/2022. 11/02 w/ HnH drop, holding lovenox and coumadin --> s/p 2 unit prbc Hb has been stable, now w/ brown BMs. Monitor HnH. Resume anticoagulation when bleeding risk deemed minimal per Sx. Pain control, diet advancement per primary team Encourage OOB & PT/OT when ok w/ Sx, IS. 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 (4) History of pulmonary embolism: Plan: Coumadin is on hold due to recent surgery DVT Px: coumadin on hold. scds Full code. Admission and Anticipated Discharge Date Admission Date: October 31, 2022 Subjective patient was seen and examined at bedside in medical floor. Patient was lying in bed, on room air, resting comfortably, not in any acute distress. Pt w/ now brown BMs, no fever/chest pain/dizziness. Hb has been stable around 8, s/p 2 units prbc so far. Reports operative site pain under control and needing less pain meds. Physical Exam Physical Exam: GENERAL: Alert and oriented x3. NAD, on RA. Obese Class II. HEENT: No pallor, no icterus. Pupils equal, round and reactive to light. Oral mucosa moist. NECK: No JVD, no neck masses. HEART: S1 and S2 heard. Regular rate and rhythm. No murmur, no gallop. RESPIRATORY SYSTEM: Normal AP diameter. No accessory muscle use. No wheezing, no crackles. ABDOMEN: Soft, bowel sounds present, mildly TTP diffuse, + distention. Bandaged/packing all over. CENTRAL NERVOUS SYSTEM: No facial droop. Speech is clear. Obeys simple commands. Moves extremities. EXTREMITIES: No edema, no erythema seen. Results & Data Results & Data Vital Signs (Past 12 Hours) Vital Signs Temp Pulse Pulse Resp BP Pulse Ox Pulse Ox 11/05/22 16:18 83 11/05/22 15:00 96 11/05/22 15:34 36.9 C 79 18 102/58 L 95 11/05/22 11:53 36.9 C 83 18 100/60 94 11/05/22 09:00 80 11/05/22 08:12 37.1 C 81 18 114/68 94 O2 Del Method O2 Del Method 11/05/22 16:18 11/05/22 15:00 Room Air 11/05/22 15:34 Room Air 11/05/22 11:53 Room Air 11/05/22 09:00 11/05/22 08:12 Room Air
[2022-11-06 06:21] LABS: Hematocrit (blood only) 25.2 % (42.0-52.0); Hemoglobin 8.2 g/dl (14.0-18.0); Mean Corpuscular Hemoglobin 30.9 pg (25.0-34.0); Mean Corpuscular Hgb Conc 32.5 g/dL (32.0-36.0); Mean Corpuscular Volume 95.1 fL (80.0-100.0); Platelet Count 173 K/uL (130-400); RDW Coefficient of Variation 15.3 % (11.5-14.5); RDW Standard Deviation 50.2 fL (36.4-46.3); Red Blood Count 2.65 M/uL (4.70-6.10)
[2022-11-06 06:30] LABS: BUN Creatinine Ratio 15.5 (10-20); Calcium 8.4 mg/dl (8.6-10.3); Est GFR (Non-African American) 68.1 ml/min; Magnesium 1.8 mg/dl (1.7-2.4); Phosphorus 2.7 mg/dl (2.5-4.9); Potassium 3.7 mmol/L (3.5-5.1)
[2022-11-06 06:44] LABS: Prothrombin Time 11.3 Seconds (9.0-12.0)
[2022-11-06] MEDS ORDERED: ACETAMINOPHEN 325 MG TAB PO PRN (07:04)
[2022-11-06] MEDS: lisinopril 20 MG TAB PO SCH (08:03)
[2022-11-06] MEDS: oxyCODONE/ACETAMINOPHEN 5mg/325mg TAB PO PRN (08:03)
[2022-11-06] MEDS: GABAPENTIN 100 MG CAP PO SCH ×2 (08:03→20:47)
--- NOTE | 2022-11-06 10:08 | Surgery Progress Note ---
Date of Service November 06, 2022 Assessment & Plan (1) Colon cancer: Plan: POD 6 Ex. Lap. 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 Cruz. Admission and Anticipated Discharge Date Admission Date: October 31, 2022 Subjective Patient reports is doing well passing flatus tolerating diet Review of Systems Constitutional: no fever, no chills and no sweats Gastrointestinal: + abdominal pain; no bloating, no nausea and no vomiting Physical Exam Physical Exam: alert pleasant oriented Gastrointestinal (Abdomen): Inspection/Auscultation: + abdominal surgical incision (Midline nikki and retention sutures , ecchymosis , signs of infection ) Percussion/Palpation: + abdomen tender and abdomen soft no drainage Results & Data Vital Signs (Past 12 Hours) Vital Signs Temp Pulse Pulse Pulse Resp BP Pulse Ox 11/06/22 09:05 70 11/06/22 07:45 98.4 F 78 15 104/65 95 11/06/22 03:00 98.8 F 75 20 100/63 96 11/06/22 00:14 78 O2 Del Method 11/06/22 09:05 11/06/22 07:45 Room Air 11/06/22 03:00 Room Air 11/06/22 00:14 PG Care Time/CCT Total # of Minutes Spent Total Time Spent with Patient: Total time spent is greater than 50% in coordination of care (as documented) at patient's floor/unit and/or counseling patient: Coding Level of Care Code 81392 Post Operative Follow-Up Diagnoses Colon cancer C18.9
[2022-11-06] MEDS: SODIUM CHLORIDE 0.9% 1,000 ML IV SCH (10:21)
[2022-11-06] MEDS ORDERED: ENOXAPARIN INJ 40 MG/0.4 ML SYR SQ SCH (13:15)
[2022-11-06] MEDS: MoRPHine SULFATE 2 MG/ML CARP IV PRN (15:48)
[2022-11-06] MEDS: ENOXAPARIN INJ 40 MG/0.4 ML SYR SQ SCH ×2 (15:49→21:46)
--- NOTE | 2022-11-06 16:11 | Hospitalist Progress Note ---
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 He is being managed for the following: (1) Status post reversal of ileostomy: Reversal of ileostomy and port removal on 10/31/2022. 11/02 w/ HnH drop, holding lovenox and coumadin --> s/p 2 unit prbc Hb has been stable, now w/ brown BMs. Monitor HnH. Resumed anticoagulation per Sx recs. Pain control, diet advancement per primary team Encourage OOB & PT/OT when ok w/ Sx, IS. HnH in AM. Monitor BM color. 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 (4) History of pulmonary embolism: Plan: Coumadin is on hold due to recent surgery DVT Px: see above. Full code. Admission and Anticipated Discharge Date Admission Date: October 31, 2022 Subjective patient was seen and examined at bedside in medical floor. Patient was lying in bed, on room air, resting comfortably, not in any acute distress. Pt w/ now brown BMs, no fever/chest pain/dizziness. Hb has been stable around 8, s/p 2 units prbc so far. Reports operative site pain under control and needing less pain meds. Physical Exam Physical Exam: GENERAL: Alert and oriented x3. NAD, on RA. Obese Class II. HEENT: No pallor, no icterus. Pupils equal, round and reactive to light. Oral mucosa moist. NECK: No JVD, no neck masses. HEART: S1 and S2 heard. Regular rate and rhythm. No murmur, no gallop. RESPIRATORY SYSTEM: Normal AP diameter. No accessory muscle use. No wheezing, no crackles. ABDOMEN: Soft, bowel sounds present, non tender, + distention. Bandaged/packing all over. CENTRAL NERVOUS SYSTEM: No facial droop. Speech is clear. Obeys simple commands. Moves extremities. EXTREMITIES: No edema, no erythema seen. Results & Data Results & Data Vital Signs (Past 12 Hours) Vital Signs Temp Pulse Pulse Resp BP BP Pulse Ox 11/06/22 16:05 79 11/06/22 15:00 11/06/22 14:15 36.8 C 88 17 102/64 96 11/06/22 12:24 36.9 C 71 16 112/73 95 11/06/22 09:05 70 11/06/22 07:45 36.9 C 78 15 104/65 95 O2 Del Method O2 Del Method 11/06/22 16:05 11/06/22 15:00 Room Air 11/06/22 14:15 Room Air 11/06/22 12:24 Room Air 11/06/22 09:05 11/06/22 07:45 Room Air
[2022-11-06] MEDS: WARFARIN SOD 5 MG TAB PO SCH (18:15)
[2022-11-07] MEDS: oxyCODONE/ACETAMINOPHEN 5mg/325mg TAB PO PRN ×3 (02:50→14:10)
[2022-11-07 06:21] LABS: Hematocrit (blood only) 25.8 % (42.0-52.0); Hemoglobin 8.4 g/dl (14.0-18.0); Mean Corpuscular Hgb Conc 32.6 g/dL (32.0-36.0); Mean Corpuscular Volume 95.2 fL (80.0-100.0); Mean Platelet Volume 8.9 fL (9.4-12.4); Platelet Count 196 K/uL (130-400); RDW Coefficient of Variation 15.9 % (11.5-14.5); RDW Standard Deviation 51.8 fL (36.4-46.3); Red Blood Count 2.71 M/uL (4.70-6.10); White Blood Count 7.47 K/ul (4.8-10.8)
[2022-11-07 06:39] LABS: Creatinine Clr Calc Pharmacy 69.2 ml/min; Est GFR (African American) 61.6 ml/min; Est GFR (Non-African American) 53.2 ml/min
[2022-11-07 06:50] LABS: Prothrombin Time 11.3 Seconds (9.0-12.0)
[2022-11-07] MEDS: SODIUM CHLORIDE 0.9% 1,000 ML IV SCH (08:47)
[2022-11-07] MEDS: ENOXAPARIN INJ 40 MG/0.4 ML SYR SQ SCH (08:48)
[2022-11-07] MEDS: GABAPENTIN 100 MG CAP PO SCH ×2 (08:48→21:37)
[2022-11-07] MEDS: lisinopril 20 MG TAB PO SCH (08:48)
--- NOTE | 2022-11-07 10:44 | Surgery Progress Note ---
Date of Service November 07, 2022 Assessment & Plan (1) Status post reversal of ileostomy: (2) History of pulmonary embolism: (3) Superior mesenteric vein thrombosis: Plan POD#7 s/p ex lap with takedown of ileostomy and mucus fistula Started on Lovenox, H/H drop; has required 2 units PRBCs, Hemoglobin now stable, started on prophylactic Lovenox doing better advance diet as tolerated PT/OT appreciate we will increase Lovenox to 80 mg SQ twice daily, which corresponds to therapeutic dose for ideal body weight possible discharge to home tomorrow continue to monitor H/H Admission and Anticipated Discharge Date Admission Date: October 31, 2022 Subjective Patient sitting up in chair. Feeling better. Tolerating pain with oral pain medication. Tolerating a solid food diet. No nausea or vomiting. No fevers or chills. He has been on Lovenox 40 mg twice daily. Hemoglobin stable. Physical Exam Physical Exam: NAD, A&Ox3 AFVSS Abd soft, MIld TTP diffusely incisions with ecchymosis; no active bleeding Lavern and retention sutures in place Results & Data Vital Signs (Past 12 Hours) Vital Signs Temp Pulse Pulse Resp BP Pulse Ox O2 Del Method 11/07/22 08:00 Room Air 11/07/22 07:43 36.3 C L 70 19 110/67 96 Room Air 11/07/22 07:00 70 11/07/22 05:51 83 11/07/22 03:42 36.7 C 78 20 109/65 94 Room Air
[2022-11-07] MEDS: WARFARIN SOD 5 MG TAB PO SCH (15:55)
--- NOTE | 2022-11-07 17:13 | Hospitalist Progress Note ---
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 He is being managed for the following: (1) Status post reversal of ileostomy: Reversal of ileostomy and port removal on 10/31/2022. 11/02 w/ HnH drop, holding lovenox and coumadin --> s/p 2 unit prbc Hb has been stable, now w/ brown BMs. Monitor HnH. Resumed anticoagulation per Sx recs. Will need therapeutic lovenox dose on DC for upto 2-3 days w/ prior to arrival coumadin dose, with strict f/u with coumadin clinic in 1-2 days of discharge. Lovenox needs be stopped once pt/inr is closer to therapeutic range. Pain control, diet advancement per primary team Encourage OOB & PT/OT when ok w/ Sx, IS. HnH in AM. Monitor BM color. 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 (4) History of pulmonary embolism: Plan: Coumadin is on hold due to recent surgery DVT Px: see above. Full code. Admission and Anticipated Discharge Date Admission Date: October 31, 2022 Subjective patient was seen and examined at bedside in medical floor. Patient was sitting up in chair, on room air, resting comfortably, not in any acute distress. Pt w/ now brown BMs, no fever/chest pain/dizziness. Hb has been stable around 8, s/p 2 units prbc so far. Reports operative site pain under control and needing less pain meds. Physical Exam Physical Exam: GENERAL: Alert and oriented x3. NAD, on RA. Obese Class II. HEENT: No pallor, no icterus. Pupils equal, round and reactive to light. Oral mucosa moist. NECK: No JVD, no neck masses. HEART: S1 and S2 heard. Regular rate and rhythm. No murmur, no gallop. RESPIRATORY SYSTEM: Normal AP diameter. No accessory muscle use. No wheezing, no crackles. ABDOMEN: Soft, bowel sounds present, non tender, + distention. Bandaged/packing all over. CENTRAL NERVOUS SYSTEM: No facial droop. Speech is clear. Obeys simple commands. Moves extremities. EXTREMITIES: No edema, no erythema seen. Results & Data Results & Data Vital Signs (Past 12 Hours) Vital Signs Temp Pulse Pulse Resp BP Pulse Ox O2 Del Method 11/07/22 15:16 36.7 C 73 18 107/65 95 Room Air 11/07/22 15:00 73 11/07/22 11:24 36.9 C 70 18 96/54 L 98 Room Air 11/07/22 08:00 Room Air 11/07/22 07:43 36.3 C L 70 19 110/67 96 Room Air 11/07/22 07:00 70 11/07/22 05:51 83
[2022-11-07] MEDS: ENOXAPARIN 80 MG/0.8 ML SYR SQ SCH (20:56)
[2022-11-08] MEDS: oxyCODONE/ACETAMINOPHEN 5mg/325mg TAB PO PRN ×3 (00:23→11:00)
[2022-11-08 06:14] LABS: Hematocrit (blood only) 26.7 % (42.0-52.0); Hemoglobin 8.8 g/dl (14.0-18.0); Mean Corpuscular Hemoglobin 31.3 pg (25.0-34.0); Mean Platelet Volume 8.9 fL (9.4-12.4); Platelet Count 210 K/uL (130-400); RDW Coefficient of Variation 15.9 % (11.5-14.5); RDW Standard Deviation 52.6 fL (36.4-46.3); Red Blood Count 2.81 M/uL (4.70-6.10); White Blood Count 7.43 K/ul (4.8-10.8)
[2022-11-08 06:36] LABS: INR 1.1 (0.9-1.1); Prothrombin Time 11.7 Seconds (9.0-12.0)
[2022-11-08 06:41] LABS: Creatinine Clr Calc Pharmacy 69.1 ml/min; Est GFR (African American) 62.2 ml/min; Est GFR (Non-African American) 53.7 ml/min
[2022-11-08] MEDS: lisinopril 20 MG TAB PO SCH (08:26)
[2022-11-08] MEDS: GABAPENTIN 100 MG CAP PO SCH (08:26)
[2022-11-08] MEDS: ENOXAPARIN 80 MG/0.8 ML SYR SQ SCH (08:27)
--- NOTE | 2022-11-08 08:40 | Surgery Progress Note ---
Date of Service November 08, 2022 Assessment & Plan (1) Status post reversal of ileostomy: (2) History of pulmonary embolism: (3) Superior mesenteric vein thrombosis: Plan POD#8 s/p ex lap with takedown of ileostomy and mucus fistula Started on Lovenox, H/H drop; has required 2 units PRBCs, Hemoglobin now stable, started on Lovenox ; H/H stable doing better advance diet as tolerated PT/OT appreciate continue Lovenox 80 mg subQ twice daily plan for discharge to home later today if okay with Medicine return to clinic on for wound check and staple removal we will need to see the Coumadin clinic in 3 days post discharge Admission and Anticipated Discharge Date Admission Date: October 31, 2022 Subjective doing well this morning. Tolerated advancing diet. No nausea or vomiting. No fevers or chills. H/H stable/increasing; started Lovenox 80 mg last night. Physical Exam Physical Exam: NAD, A&Ox3 AFVSS Abd soft, MIld TTP diffusely incisions with ecchymosis; no active bleeding Lavern and retention sutures in place Results & Data Vital Signs (Past 12 Hours) Vital Signs Temp Pulse Pulse Pulse Resp BP BP 11/08/22 06:00 68 11/08/22 07:28 36.6 C 72 17 113/67 11/08/22 04:00 36.7 C 80 18 119/76 11/07/22 23:15 36.7 C 74 18 104/61 Pulse Ox O2 Del Method 11/08/22 06:00 11/08/22 07:28 96 Room Air 11/08/22 04:00 95 Room Air 11/07/22 23:15 96 Room Air
--- NOTE | 2022-11-08 15:10 | Hospitalist Progress Note ---
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 He is being managed for the following: (1) Status post reversal of ileostomy: Reversal of ileostomy and port removal on 10/31/2022. 11/02 w/ HnH drop, holding lovenox and coumadin --> s/p 2 unit prbc Hb has been stable, now w/ brown BMs. Monitor HnH. Resumed anticoagulation per Sx recs. Will need therapeutic lovenox dose on DC for upto 2-3 days w/ prior to arrival coumadin dose, with strict f/u with coumadin clinic in 1-2 days of discharge. Lovenox needs be stopped once pt/inr is closer to therapeutic range. Patient has been made aware of these. I requested him to f/u w/ Coumadin clinic on morning upon discharge. Pain control, diet advancement per primary team Encourage OOB & PT/OT when ok w/ Sx, IS. HnH in AM. Monitor BM color. 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 (4) History of pulmonary embolism: Plan: Coumadin is on hold due to recent surgery DVT Px: see above. Full code. Admission and Anticipated Discharge Date Admission Date: October 31, 2022 Subjective patient was seen and examined at bedside in medical floor. Patient was sitting up in chair, on room air, resting comfortably, not in any acute distress. Pt w/ now brown BMs, no fever/chest pain/dizziness. Hb has been stable around 8.5, s/p 2 units prbc so far. Reports feeling better. Physical Exam Physical Exam: GENERAL: Alert and oriented x3. NAD, on RA. Obese Class II. HEENT: No pallor, no icterus. Pupils equal, round and reactive to light. Oral mucosa moist. NECK: No JVD, no neck masses. HEART: S1 and S2 heard. Regular rate and rhythm. No murmur, no gallop. RESPIRATORY SYSTEM: Normal AP diameter. No accessory muscle use. No wheezing, no crackles. ABDOMEN: Soft, bowel sounds present, non tender, + distention. Bandaged/packing all over. CENTRAL NERVOUS SYSTEM: No facial droop. Speech is clear. Obeys simple commands. Moves extremities. EXTREMITIES: No edema, no erythema seen. Results & Data Results & Data Vital Signs (Past 12 Hours) Vital Signs Temp Pulse Pulse Pulse Resp BP BP 11/08/22 11:29 36.5 C 70 20 111/67 11/08/22 11:15 36.6 C 72 74 17 119/76 113/67 11/08/22 06:00 68 11/08/22 07:28 36.6 C 72 17 113/67 11/08/22 04:00 36.7 C 80 18 119/76 Pulse Ox O2 Del Method 11/08/22 11:29 96 Room Air 11/08/22 11:15 96 11/08/22 06:00 11/08/22 07:28 96 Room Air 11/08/22 04:00 95 Room Air
--- NOTE | 2022-11-16 15:06 | Discharge Summary ---
Date of Service November 16, 2022 Admission HPI Per Admitting Provider Patient presented to [facility] on 10/31/2022 for elective ex lap, ileostomy reversal, takedown of mucous fistula, and removal of aport catheter by Dr. Harris. Principal Diagnosis History of cancer of appendix s/p resection and ileostomy formation for anastmotic leak Discharge Data Allergies Allergy/AdvReac Type Severity Reaction Status Date / Time amoxicillin [From Augmentin] Allergy Intermediate Rash Verified 10/31/22 07:21 clavulanic acid Allergy Intermediate Rash Verified 10/31/22 07:21 [From Augmentin] Consultations 10/31/22 14:17 Consult Hospitalist Routine Procedures Performed Operation Date: 10/31/22 08:45 Actual Procedures p Exploratory Laparotomy, Reversal of Colostomy and Mucous Fistula(Not Applicable) - Bertin Harris MD s Removal of Access Port(Right) - Bertin Harris MD Hospital Course (1) Status post reversal of ileostomy: (2) History of pulmonary embolism: Plan Patient presented to [facility] on 10/31/2022 for elective ex lap, ileostomy reversal, takedown of mucous fistula, and removal of aport catheter by Dr. Harris. Patient tolerated procedure well and was transferred to recovery then to medical/surgical floor for postoperative care. Hospitalist consulted for comanagement due to comorbidities. He was kept NPO, pain management and antiemetics as needed, home dose of coumadin held and lovenox was to start on POD # 1 if hemoglobin stable. POD # 1 afebrile, vitals stable. Creatinine did increase to 2.4 so Lovenox held. POD# 2 patients hemoglobin dropped from 12 to 9.3 and was having bloody stools. Lovenox was held. He was a given 1 unit of PRBCs and vitamin K. H&H closely monitored and went down to 7.8 in which a second unit of PRBCs administered. POD # 3 patient was still having moderate amount of pain and [employer] was started for pain control. POD # 4 h&H stable after 2 units, diet advanced to full liquids and anticoagulation was held. Anticoagulation was held until h&H was stable and patient having less bloody bowel movements. Diet was advance as tolerated to low fiber diet on POD # 5. Lovenox was restarted on pOD # 6 and patient was discharged home on POD # 8 in stable condition with close follow-up in office for staple removal and close fol low-up in Coumadin clinic. Total Time Total Time Spent Total Time Spent (In Minutes): 30 minutes Discharge Plan Discharge Items Patient Disposition: Home - Self-Care Reason For Visit: Malignant Neoplasm Ascending Colon Discharge Diagnosis: s/p reversal of ileostomy and mucous fistula Condition on Discharge: Good Activity: Per Instructions section Lifting: No more than 10 pounds and Wait until after follow-up appointment Bathing: May shower/bathe in 3 days Sexual Activity: Wait until after follow-up appointment Exercise/Sports: Wait until after follow-up appointment Non-emergency contact: Primary Care Provider and Surgeon Call non-emergency contact if: you have any medication questions, your pain is not controlled, your pain is worsening, your pain is concerning for you, you have a fever, your temperature is above 101, your wound has increased redness, your wound has increased drainage and your wound pain has increased Follow-up/Referrals: Caroline Park PA-C [Primary Care Provider] - Diet: Low Fiber Addtl Attending Provider Instructions: Post-Surgical ~Discharge Instructions Activity Recommendations: - lifting limitation: (10 pounds for at least 6 weeks), - exercise/sex/sports limit: (nonstrenuous for 6 weeks), - driving or machine use limit: (none for 1 week or until pain free), - Shower/bathe limit: (may shower beginning) Diet: - Low fiber diet recommended for 1-2 weeks SPECIAL CARE INSTRUCTIONS: - May shower. Let water run over area and pat dry. No submerging incisions underwater until completely healed - surgical nikki will be remove in office. Change dressing daily and as needed to keep clean and dry. - Leave sutures in place. - Wear abdominal binder daily for support. - Call the surgeon's office with any questions or concerns - - (ex. temperature higher than 101 degrees F, excessive bleeding or pain). MEDICATIONS: - Resume previous medications unless instructed otherwise by your surgeon. - May alternate extra strength Tylenol and Ibuprofen as needed for mild to moderate pain - 650 mg Tylenol every 6 hours as needed - Ibuprofen 600 mg every 6 hours as needed (take with food) - Percocet 1-2 every 4 hours, as needed for moderate to severe pain - Lovenox 80 mg subcutaneous twice daily as directed by Coumadin clinic - Coumadin as directed by Coumadin clinic FOLLOW UP VISIT: - follow-up appointment with Dr. Harris - 11/10/2022 Office number - Coumadin clinic in 3 days Pending Studies at Discharge: No Stand-Alone Forms: My [facility], Smoking Cessation Medications and DC Order Prescriptions: New enoxaparin [Lovenox] 80 mg/0.8 mL syringe 80 mg subcut Q12H Qty: 8 0RF oxycodone-acetaminophen 5-325 mg tablet 1 tab PO Q4H PRN (Reason: pain) Qty: 18 0RF Continued cholecalciferol (vitamin D3) 50 mcg (2,000 unit) capsule 50 mcg PO QAM gabapentin 100 mg capsule 100 mg PO BID benazepril-hydrochlorothiazide [Lotensin HCT] 20-25 mg Tablet 1 tab PO QAM warfarin 5 mg tablet 5 mg PO DAILY@1600 hydrocodone-acetaminophen 5-325 mg tablet 1 tab PO Q6H PRN (Reason: Pain) Discontinued enoxaparin [Lovenox] 30 mg/0.3 mL Syringe 120 mg SUBCUT Q12H Discharge Orders: Discharge Order (Routine); Ordered 11/08/22 Ordered By: Bertin Harris Admission Data Admit Date/Time: 10/31/22 13:10 Attending Provider: Bertin Harris Admit Provider: Bertin Harris Primary Care Provider: Caroline Park Other Providers: Maureen Wadsworth ; Chaparrita Ortiz I. ; Adelaida Beavers ; Lizet Thompson ; Rhianna Robles ; Elsa Muniz ; Sanam Packer ; Declan Cool ; Cristopher Vizcaino ; Javier Newsome ; Hoda Porter ; Dipak Costello ; Adrienne Gilmore ; Cassie Willis ; Susan Peralta ; Baltazar Peraza ; Soco Maciel ; Lucila Mcginnis ; Wyatt Matthews ; Yoly Barbosa I. ; Keny Kerr ; Nacho Cadena ; Nikhil Funez ; Abi Villalobos ; Fredo Perez ; Eagle Ledbetter ; Ubaldo Mon ; Lyubov Delong ; Blanche Betancourt Other Interventions: Discharge Summary Assessment (RN) Last Done: 11/08/22 11:15
== END 2022-11-08 12:08 | disposition home or self-care (01) | DRG 330 ==
LOC: ASU 06:54 → 3W 13:10 → 2N 11-02 16:18